=== PATIENT | female | born 1940 | race African-American/Black ===

== ENCOUNTER 2018-02-06 12:17 | Day surgery (SDC) | payer OTHER, MEDICARE ==
[2018-02-06 09:52] VITALS: BMI 29.2
[2018-02-06 15:30] VITALS: TEMP 97.7
[2018-02-06 16:12] VITALS: BP 149/63; PULSE 68
--- NOTE | 2018-02-10 17:10 | PATH ---
Surgical Pathology Report Patient Name: CAROLINE BELL [facility]. Rec. #: [id number] /Age/Gender: 1940 (Age: 77) / F Account: [id number] Location: U-ENDOSCOPY Taken: 02/06/2018 Received: 02/09/2018 Reported: 02/10/2018 Physicians: Jennifer Null M.D. Specimen(s) Received A: BX DUODENUM B: BX ANTRAL ULCERS C: BX POLYP DESCENDING COLON D: BX POLYP CECUM Clinical History Abdominal pain, rule out ulcer, history of colon polyp Postoperative diagnosis: Gastric ulcers, gastritis, hiatal hernia, diverticulosis, colon polyps Final Diagnosis A. DUODENUM, SECOND PORTION AND BULB, BIOPSY: DUODENAL MUCOSA WITH FOCAL MILD ACUTE AND CHRONIC DUODENITIS. B. STOMACH, ANTRAL ULCERS, BIOPSY: GASTRIC ANTRAL MUCOSA WITH FOCAL CHRONIC ACTIVE GASTRITIS. IMMUNOHISTOCHEMICAL STAIN FOR H. PYLORI IS NEGATIVE. C. DESCENDING COLON, POLYP, BIOPSY: HYPERPLASTIC POLYP. D. CECUM, POLYP, BIOPSY: TUBULAR ADENOMA. Electronically Signed Toma Huerta M.D. Gross Description A. Received in formalin, labeled "second portion duodenum and bulb" are 3 duff, irregular portions of soft tissue measuring 0.2 and 0.3 cm. in greatest dimension. The specimens are submitted in toto in one cassette. B. Received in formalin, labeled "antral ulcers" are 3 duff, irregular portions of soft tissue measuring 0.2 and 0.3 cm. in greatest dimension. The specimens are submitted in toto in one cassette. C. Received in formalin, labeled "polyp descending colon" is a duff, irregular portion of soft tissue measuring 0.2 cm. in greatest dimension. The specimen is submitted in toto in one cassette. D. Received in formalin, labeled "polyp cecum" are 2 duff, irregular portions of soft tissue measuring 0.1 cm. in greatest dimension. The specimens are submitted in toto in one cassette. YOSELIN/02/09/2018 carlton/02/09/2018
== END 2018-02-06 16:25 | disposition home or self-care (01) ==
LOC: JASU-ENDO 12:17
PROVIDERS: ATTEND Internal Medicine Gastroenterology
PROC: 0DBM8ZX Excision of Descending Colon, Via Natural or Artificial Opening Endoscopic, Diagnostic (ICD-10-PCS; 2018-02-06)
PROC: 0DB98ZX Excision of Duodenum, Via Natural or Artificial Opening Endoscopic, Diagnostic (ICD-10-PCS; 2018-02-06)
PROC: 0DB68ZX Excision of Stomach, Via Natural or Artificial Opening Endoscopic, Diagnostic (ICD-10-PCS; 2018-02-06)
PROC: 0DBH8ZX Excision of Cecum, Via Natural or Artificial Opening Endoscopic, Diagnostic (ICD-10-PCS; principal; 2018-02-06 13:30)
DX: Z12.11 Encounter for screening for malignant neoplasm of colon (principal); Z86.010 Personal history of colon polyps; D12.0 Benign neoplasm of cecum; D12.4 Benign neoplasm of descending colon; K57.30 Diverticulosis of large intestine without perforation or abscess without bleeding; K25.9 Gastric ulcer, unspecified as acute or chronic, without hemorrhage or perforation; K29.70 Gastritis, unspecified, without bleeding
CPT/HCPCS: 88305-TC; 88342-TC

== ENCOUNTER 2019-02-26 08:01 | Day surgery (SDC) | payer OTHER, MEDICARE ==
[2019-02-25 13:39] VITALS: BMI 30.7
[2019-02-26 10:31] VITALS: TEMP 97.2
[2019-02-26 11:00] VITALS: PULSE 60
[2019-02-26 11:44] VITALS: BP 121/64
[2019-02-26 12:07] LABS: BASO % 1.2 % (0-2.0); EOS % 2.3 % (0-4.5); HEMATOCRIT 32.6 % (32.4-45.2); HEMOGLOBIN 10.9 GM/dL (10.7-15.3); LYMPH % 27.5 % (8-40); MCH 32.8 pg (25.7-33.7); MCHC 33.3 g/dl (32.0-36.0); MEAN CELL VOLUME 98.3 fl (80-96); MEAN PLT VOLUME 8.3 fl (7.5-11.1); MONO % 4.1 % (3.8-10.2); NEUT % 64.9 % (42.8-82.8); PLATELET COUNT 231 K/MM3 (134-434); RBC 3.31 M/mm3 (3.60-5.2); RDW 12.5 % (11.6-15.6); RETICULOCYTES 1.67 % (0.5-1.5); WHITE BLOOD COUNT 4.9 K/mm3 (4.0-10.0)
[2019-02-26 12:41] LABS: ALBUMIN 3.6 g/dl (3.4-5.0); BILIRUBIN,TOTAL 0.3 mg/dL (0.2-1); BLOOD UREA NITROGEN 20.2 mg/dL (7-18); CALCIUM 9.1 mg/dL (8.5-10.1); CREATININE 1.2 mg/dL (0.55-1.3); POTASSIUM 3.8 mmol/L (3.5-5.1)
[2019-02-28 07:08] LABS: SERUM IRON SATURATION 11 % (15-55); TOTAL IRON BINDING CAPACITY 352 ug/dL (250-450)
--- NOTE | 2019-03-01 17:18 | PATH ---
Surgical Pathology Report Patient Name: CAROLINE BELL [facility]. Rec. #: [id number] /Age/Gender: 1940 (Age: 78) / F Account: [id number] Location: U-ENDOSCOPY Taken: 02/26/2019 Received: 02/26/2019 Reported: 03/01/2019 Physicians: Jennifer Null M.D. Specimen(s) Received A: 2ND PORTION DUODENUM AND BULB B: ANTRUM C: RECTAL POLYP D: TRANSVERSE COLON E: RIGHT COLON POLYPS F: CECUM Clinical History Anemia, occult GI bleed, abdominal pain, family history of gastric cancer, history of colon adenoma Postoperative diagnosis: Gastritis, small hiatal hernia, colon polyps, diverticulosis Final Diagnosis A. DUODENUM, SECOND PORTION AND DUODENAL BULB, BIOPSY: DUODENAL MUCOSA WITH REACTIVE LYMPHOID AGGREGATE. B. STOMACH, ANTRUM, BIOPSY: GASTRIC ANTRAL MUCOSA WITH MILD CHRONIC GASTRITIS. IMMUNOHISTOCHEMICAL STAIN FOR H. PYLORI IS NEGATIVE. C. RECTAL POLYPS, BIOPSY: HYPERPLASTIC POLYP(S). D. TRANSVERSE COLON POLYP, BIOPSY: TUBULAR ADENOMA. E. COLON, RIGHT, POLYPS, BIOPSY: TUBULAR ADENOMA. POLYPOID COLONIC MUCOSA WITH PROMINENT LYMPHOID AGGREGATE. F. CECAL POLYP, BIOPSY: HYPERPLASTIC POLYP. Electronically Signed Toma Huerta M.D. Gross Description A. Received in formalin, labeled "biopsy second portion duodenum and duodenal bulb" are 4 duff, irregular portions of soft tissue ranging from 0.2-0.4 cm. in greatest dimension. The specimens are submitted in toto in one cassette. B. Received in formalin, labeled "biopsy antrum " are 3 duff, irregular portions of soft tissue ranging from 0.4-0.5 cm. in greatest dimension. The specimens are submitted in toto in one cassette. C. Received in formalin, labeled "biopsy rectal polyps" are 4 duff, irregular portions of soft tissue ranging from 0.2-0.5 cm. in greatest dimension. The specimens are submitted in toto in one cassette. D. Received in formalin, labeled "biopsy transverse colon polyp" are 2 duff, irregular portions of soft tissue measuring 0.2 and 0.7 and cm. in greatest dimension. The specimens are submitted in toto in one cassette. E. Received in formalin, labeled "biopsy right colon polyps" are 5 duff, irregular portions of soft tissue ranging from 0.1-0.3 cm. in greatest dimension. The specimens are submitted in toto in one cassette. F. Received in formalin, labeled "biopsy cecal polyp" is a duff, irregular portion of soft tissue measuring 0.4 cm. in greatest dimension. The specimen is submitted in toto in one cassette. 02/26/2019 [facility]02/26/2019
== END 2019-02-26 12:15 | disposition home or self-care (01) ==
LOC: JASU-ENDO 08:01
PROVIDERS: ATTEND Internal Medicine Gastroenterology
PROC: 0DBL8ZX Excision of Transverse Colon, Via Natural or Artificial Opening Endoscopic, Diagnostic (ICD-10-PCS; 2019-02-26)
PROC: 0DBP8ZX Excision of Rectum, Via Natural or Artificial Opening Endoscopic, Diagnostic (ICD-10-PCS; 2019-02-26)
PROC: 0DBH8ZX Excision of Cecum, Via Natural or Artificial Opening Endoscopic, Diagnostic (ICD-10-PCS; 2019-02-26)
PROC: 0DB68ZX Excision of Stomach, Via Natural or Artificial Opening Endoscopic, Diagnostic (ICD-10-PCS; 2019-02-26)
PROC: 0DBK8ZX Excision of Ascending Colon, Via Natural or Artificial Opening Endoscopic, Diagnostic (ICD-10-PCS; principal; 2019-02-26 09:30)
DX: Z12.11 Encounter for screening for malignant neoplasm of colon (principal); Z86.010 Personal history of colon polyps; K62.1 Rectal polyp; D12.2 Benign neoplasm of ascending colon; D12.0 Benign neoplasm of cecum; D12.3 Benign neoplasm of transverse colon; K57.30 Diverticulosis of large intestine without perforation or abscess without bleeding; K29.70 Gastritis, unspecified, without bleeding; K44.9 Diaphragmatic hernia without obstruction or gangrene; Z80.0 Family history of malignant neoplasm of digestive organs
CPT/HCPCS: 36415; 80053; 82728; 83540; 83550; 85025; 85044; 88305-TC; 88342-TC

== ENCOUNTER 2019-05-03 15:48 | Inpatient (IN) | payer OTHER, MEDICARE ==
--- NOTE | 2019-05-03 16:06 | PDOC ---
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 The patient had a recent MRI which shows multiple disc herniations particularly bad at L5/S1. Her pcp - Dr. Christianson wants her referred to a neuro/orthopedic surgeon to correct her herniated discs. The patient has an outpatient appointment with Dr. Davila on May 06. She came into the hospital today because the pain was too much for her to handle and she was not able to walk today. She is concerned that she cannot be at home like this bc she will continue to fall down repeatedly. She is taking gabapentin and alleve for her pain at home but they are not causing her adequate pain relief. The patient states that today when she fell down in the shower she did not hit her head or anywhere else on her body. She only has severe right lower extremity pain. Patient denies loss of bowel or bladder, saddle anesthesia, fevers, chills, infections, headache, nausea, vomiting, diarrhea, or constipation. PCP: Douglas Christianson Neurologist: Dr. Davila PSH: Left Inguinal Hernia Repair Social Hx: Lives at home with sister. Independent in ADL. Denies smoking, drinking, or other substance usage. Allergies: NKA, NKDA Past History - Past Medical History Allergies/Adverse Reactions: Allergies Allergy/AdvReac Type Severity Reaction Status Date / Time No Known Allergies Allergy Verified 02/28/15 11:09 Home Medications: Ambulatory Orders Atorvastatin Ca [Lipitor] 20 mg PO HS 01/03/14 Cholecalciferol (Vitamin D3) [Vitamin D-3] 2,000 unit PO DAILY 01/03/14 Levothyroxine [Synthroid -] 75 mcg PO DAILY 01/03/14 Multivitamin [Multivitamins] 1 each PO DAILY 01/03/14 Nebivolol HCl [Bystolic] 10 mg PO BID 01/03/14 Aspirin Coated [Ecotrin -] 81 mg PO DAILY #0 01/04/14 Acetaminophen [Tylenol .Extra-Strength -] 500 mg PO DAILY PRN 02/06/18 Pantoprazole Sodium 40 mg PO DAILY #90 tablet.dr 02/06/18 Tamoxifen Citrate 20 mg PO DAILY 02/06/18 Biotin 1,000 mcg PO DAILY 02/25/19 Ferrous Sulfate, Dried [Iron] 325 mg PO DAILY 02/25/19 Magnesium 400 mg PO BID 02/25/19 Pramipexole Dihydrochloride [Mirapex -] 0.5 mg PO BID 02/25/19 Ubidecarenone [Coq10] 100 mg PO DAILY 02/25/19 Vitamin B Complex 1 each PO DAILY 02/25/19 Olmesartan/Hydrochlorothiazide [Olmesartan-Hctz 40-25 mg Tab] 1 each PO DAILY Anemia: Yes Asthma: No Cancer: Yes (LEFT BREAST CANCER) Cardiac Disorders: No CVA: No COPD: No CHF: No Dementia: No Diabetes: No GI Disorders: Yes (NSAID GASTRITIS, COLON ADENOMAS) Disorders: No HTN: Yes Hypercholesterolemia: Yes Liver Disease: Yes (COLON ADENOMA) Seizures: No Thyroid Disease: Yes (HYPOTHYROIDISM) - Surgical History Abdominal Surgery: Yes (RIGHT INGUINAL REPAIR) Appendectomy: Yes (EGD,COLONOSCOPY) Cardiac Surgery: No Cholecystectomy: No Lung Surgery: No Neurologic Surgery: No Orthopedic Surgery: No - Suicide/Smoking/Psychosocial Hx Smoking History: Former smoker Have you smoked in the past 12 months: No If you are a former smoker, when did you quit?: 1997 Hx Alcohol Use: Yes (1-2 WINE WEEKLY) Drug/Substance Use Hx: No Substance Use Type: Alcohol Hx Substance Use Treatment: No Review of Systems - Review of Systems Able to Perform ROS?: Yes Comments:: CONSTITUTIONAL: Absent: fever, chills, diaphoresis, generalized weakness, malaise, loss of appetite HEENT: Absent: rhinorrhea, nasal congestion, throat pain, throat swelling, difficulty swallowing, mouth swelling, ear pain, eye pain, visual Changes CARDIOVASCULAR: Absent: chest pain, syncope, palpitations, irregular heart rate, lightheadedness , peripheral edema RESPIRATORY: Absent: cough, shortness of breath, dyspnea with exertion, orthopnea, wheezing, stridor, hemoptysis GASTROINTESTINAL: Absent: abdominal pain, abdominal distension, nausea, vomiting, diarrhea, constipation, melena, hematochezia GENITOURINARY: Absent: dysuria, frequency, urgency, hesitancy, hematuria, flank pain, genital pain MUSCULOSKELETAL: Present: Arthralgia Absent: myalgia, joint swelling SKIN: Absent: rash, itching, pallor HEMATOLOGIC/IMMUNOLOGIC: Absent: easy bleeding, easy bruising, lymphadenopathy, frequent infections ENDOCRINE: Absent: unexplained weight gain, unexplained weight loss, heat intolerance, cold intolerance NEUROLOGIC: Present: focal weakness and paresthesias, unsteady gait Absent: headache, dizziness, seizure, mental status changes, bladder or bowel incontinence PSYCHIATRIC: Absent: anxiety, depression, suicidal or homicidal ideation, hallucinations. *Physical Exam - Physical Exam Comments: GENERAL: Well developed, well nourished. Awake and alert. Moderate distress. HEENT: Normocephalic, atraumatic. PERRLA, EOMI. No conjunctival pallor. NECK: Supple. Full ROM. No JVD. CARDIOVASCULAR: Regular rate and rhythm. No murmurs, rubs, or gallops. Distal pulses are 2+ and symmetric. PULMONARY: No evidence of respiratory distress. Lungs clear to auscultation bilaterally. No wheezing, rales or rhonchi. ABDOMINAL: Soft. Non-tender. Non-distended. No rebound or guarding. No organomegaly. Normoactive bowel sounds. MUSCULOSKELETAL Limited ROM at the right hip joint. + straight leg raise bilaterally R much worse than L. Normal range of motion at other joints. No bony deformities or tenderness. No CVA tenderness. EXTREMITIES: No cyanosis. No clubbing. No edema. No calf tenderness. SKIN: Warm and dry. Normal capillary refill. No rashes. No jaundice. NEUROLOGICAL: Alert, awake, appropriate. Cranial nerves 2-12 intact. No deficits to light touch in face, upper extremities and lower extremities. No motor deficits in the in face, upper extremities and lower extremities. Normal speech. Gait not observed secondary to patient's pain. PSYCHIATRIC: Cooperative. Good eye contact. Appropriate mood and affect. ED Treatment Course - RADIOLOGY Radiograph Interpretation: Lumbar/Sacral Spine XR: LS-spine: Pain. 3 views of the LS spine to been obtained. The 2 AP views shows 5 lumbar type vertebral bodies with scoliosis, degenerative changes, patent SI joints and intact paraspinal soft tissues. Lateral imaging reveals a normal lordosis with degenerative changes and wedging. There is vacuum phenomenon at L3-4 and L4-5. There is narrowing of the L5-S1 intervertebral disc space. Blastic or lytic changes are not seen. There is no sign of fracture or subluxation. If symptoms persist, further imaging and orthopedic consultation may be of help. Hip XR: Right hip: Pain. 2 views of the right hip reveal no sign of a gross fracture. Blastic or lytic changes are not seen. If symptoms persist, further imaging may be of help. Impression: No acute right hip pathology. 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 The patient had a recent MRI which shows multiple disc herniations particularly bad at L5/S1. Her pcp - Dr. Christianson wants her referred to a neuro/orthopedic surgeon to correct her herniated discs. The patient has an outpatient appointment with Dr. Davila on May 06. She came into the hospital today because the pain was too much for her to handle and she was not able to walk today. She is concerned that she cannot be at home like this bc she will continue to fall down repeatedly. She is taking gabapentin and alleve for her pain at home but they are not causing her adequate pain relief. The patient states that today when she fell down in the shower she did not hit her head or anywhere else on her body. She only has severe right lower extremity pain. Patient denies loss of bowel or bladder, saddle anesthesia, fevers, chills, infections, headache, nausea, vomiting, diarrhea, or constipation. Vital Signs Temp Pulse Resp BP Pulse Ox 98.1 F 71 20 178/91 H 95 05/03/19 16:39 05/03/19 16:39 05/03/19 16:39 05/03/19 16:39 05/03/19 16:39 MDM: Patient presents after recent MRI showed significant disc herniations worst at L5/S1 with bad sciatica pain radiating down her right leg and inability to ambulate. Will try to give patient analgesic medications to help her walk. If she is not able to ambulate will have to admit the patient for inability to ambulate and urgent neuro/ortho surgical referall. Plan: XR's, Analgesia, re-assess. Hip XR: Right hip: Pain. 2 views of the right hip reveal no sign of a gross fracture. Blastic or lytic changes are not seen. If symptoms persist, further imaging may be of help. Impression: No acute right hip pathology. Lumbar Spine XR: LS-spine: Pain. 3 views of the LS spine to been obtained. The 2 AP views shows 5 lumbar type vertebral bodies with scoliosis, degenerative changes, patent SI joints and intact paraspinal soft tissues. Lateral imaging reveals a normal lordosis with degenerative changes and wedging. There is vacuum phenomenon at L3-4 and L4-5. There is narrowing of the L5-S1 intervertebral disc space. Blastic or lytic changes are not seen. There is no sign of fracture or subluxation. If symptoms persist, further imaging and orthopedic consultation may be of help. Re-assessment: Patient no longer has any pain but is still unable to bear weight on her right leg since the fall in the shower earlier this morning. - Will admit patient to the hospital and consult neuro-surgery Neurosurgery consult - Dr. Downing: Spoke with Dr. Downing about the patient. He is going to look at the patient's MRI from october and call us back. Spoke with Dr. Downing who is aware of the case, will follow and see the patient. Disposition: admission to Med/Surg *DC/Admit/Observation/Transfer Diagnosis at time of Disposition: Inability to ambulate due to hip - Discharge Dispostion Condition at time of disposition: Stable Decision to Admit order: Yes - Referrals - Patient Instructions - Post Discharge Activity
[2019-05-03] MEDS ORDERED: diazePAM 5 MG TABLET PO ONE (16:32)
[2019-05-03] MEDS ORDERED: diazePAM 5 MG TABLET ONE (16:55)
--- NOTE | 2019-05-03 17:04 | PDOC ---
Attending Attestation - Resident Resident Name: Kory Davidson - ED Attending Attestation I have performed the following: I have examined & evaluated the patient, The case was reviewed & discussed with the resident, I agree w/resident's findings & plan, Exceptions are as noted - HPI HPI: 05/03/19 16:56 78 F with h/o anemia, breast CA, GERD, HTN, hypothyroid, glaucoma, herniated discs presenting to ED with lower back pain. Pt was diagnosed with several herniated discs earlier this year and reports chronic lower back pain that has progressively worsened. Today, pt states that she was in the shower when her legs buckled under her. Pt caught herself by grabbing the shower door but still went down to the floor. Denies headstrike/LOC. Pt denies any new pain since the fall. Denies any weakness/numbness in her legs. Denies incontinence of bowel or bladder. - Physicial Exam PE: 05/03/19 17:04 GENERAL: Awake, alert, and fully oriented, in no acute distress. HEAD: No signs of trauma EYES: PERRLA, EOMI, sclera anicteric, conjunctiva clear ENT: Auricles normal inspection, hearing grossly normal, nares patent, oropharynx clear without exudates. Moist mucosa NECK: Nontender, no stepoffs, Normal ROM, supple, no lymphadenopathy, JVD, or masses LUNGS: Breath sounds equal, clear to auscultation bilaterally. No wheezes, and no crackles HEART: Regular rate and rhythm, normal S1 and S2, no murmurs, rubs or gallops ABDOMEN: Soft, nontender, normoactive bowel sounds. No guarding, no rebound. No masses EXTREMITIES: Normal range of motion, no edema. No clubbing or cyanosis. No cords, erythema, or tenderness NEUROLOGICAL: Cranial nerves II through XII intact. 5/5 strength and sensation in all extremities, Normal speech, normal gait, normal cerebellar function SKIN: Warm, Dry, normal turgor, no rashes or lesions noted. BACK: + lumbar paraspinal TTP, no stepoffs, no midline TTP - Medical Decision Making 05/03/19 17:05 78 F with acute on chronic lower back pain. No new neuro deficits on exam to suggest cord compression/cauda equina. - XR L spine - Pain control 05/03/19 18:22 XRs negative for fx Pt reassessed after meds, now with significantly improved pain. However, pt still with difficulty bearing weight and ambulating without support. Will c/s nsgy 05/03/19 18:39 Dr. Downing consulted
--- NOTE | 2019-05-03 19:18 | PN ---
Teaching Attending Note Name of Resident: Lillie Morfin ATTENDING PHYSICIAN STATEMENT I saw and evaluated the patient. I reviewed the resident's note and discussed the case with the resident. I agree with the resident's findings and plan as documented. 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 The patient had a recent MRI which showed multiple disc herniations particularly bad at L5/S1. Her PCP - Dr. Christianson wants her referred to a neuro/orthopedic surgeon to correct her herniated discs. The patient has an outpatient appointment with Dr. Davila on May 06. She came into the hospital today because the pain was too much for her to handle and she was not able to walk today. She is concerned that she cannot be at home like this because she will continue to fall down repeatedly. She is taking Gabapentin and Alleve for her pain at home but not getting adequate pain relief. The patient states that she did not hit her head or anywhere else on her body. She only has severe right lower extremity pain. Patient denies loss of bowel or bladder function, saddle anesthesia, fevers, chills, recent infections, headache, nausea, vomiting, diarrhea or constipation. Lives at home with sister. Denies smoking, alcohol or illicit drug use. OBJECTIVE: Alert Vital Signs Period Temp Pulse Resp BP Sys/Soler Pulse Ox Last 24 Hr 98.1 F 71 20 178/91 95 HEENT: No Jaundice, eye redness or discharge, PERRLA, EOMI. Normocephalic, atraumatic. External ears are normal and hearing is grossly intact. No nasal discharge. Neck: Supple, nontender. No palpable adenopathy or thyromegaly. No JVD Chest: Good effort. Clear to auscultation and percussion. Heart: Regular. No S3, rub or murmur Abdomen: Not distended, soft, nontender and no HSM. No rebound or guarding. Normal bowel sounds. Ext: Peripheral pulses intact. No leg edema. Tender in right hip area. Limited ROM of right hip joint and pain with straight leg raise bilaterally (R>L). Skin: Warm and dry. No petechiae, rash or ecchymosis. Neuro: Alert. Oriented x3. CN 2-12 grossly intact. Sensation grossly intact in all four extremities and DTR are symmetric. Gait not tested for safety reasons and due to pain. Psych: Appropriate mood and affect. Good insight. Home Medications Medication Instructions Recorded Atorvastatin Ca [Lipitor] 20 mg PO HS 01/03/14 Cholecalciferol (Vitamin D3) 2,000 unit PO DAILY 01/03/14 [Vitamin D-3] Levothyroxine [Synthroid -] 75 mcg PO DAILY 01/03/14 Multivitamin [Multivitamins] 1 each PO DAILY 01/03/14 Nebivolol HCl [Bystolic] 10 mg PO BID 01/03/14 Aspirin Coated [Ecotrin -] 81 mg PO DAILY #0 01/04/14 Acetaminophen [Tylenol 500 mg PO DAILY PRN 02/06/18 .Extra-Strength -] Pantoprazole Sodium 40 mg PO DAILY #90 tablet. 02/06/18 Tamoxifen Citrate 20 mg PO DAILY 02/06/18 Biotin 1,000 mcg PO DAILY 02/25/19 Ferrous Sulfate, Dried [Iron] 325 mg PO DAILY 02/25/19 Magnesium 400 mg PO BID 02/25/19 Pramipexole Dihydrochloride 0.5 mg PO BID 02/25/19 [Mirapex -] Ubidecarenone [Coq10] 100 mg PO DAILY 02/25/19 Vitamin B Complex 1 each PO DAILY 02/25/19 Olmesartan/Hydrochlorothiazide 1 each PO DAILY 02/26/19 [Olmesartan-Hctz 40-25 mg Tab] ASSESSMENT AND PLAN: 1. Fall/Right leg pain - Pelvic, lumbar and hip xrays didnot reveal a fracture. Will get CT scan of hip. Lyman better after percocet and valium in the ER. Will consult PT and Dr. Davila. Continue pain control with percocet, lidocaine patch and provide bowel regimen. EKG and urinalysis pending. Will continue comprehensive care of all her comorbid conditions. Implement fall precautions. 2. JUSTINE - Cause unclear. Will get CPK, urinalysis, kidney sonogram and phosphate. Hydrate gently and monitor urine output. Will consult nephrology and avoid nephrotoxic agents such as NSAIDS, aminoglycosides, contrast dyes and certain Alternative medicine products. 3. Overweight Counseled on the risks associated with being overweight. Will provide patient all the necessary assistance, counseling and positive reinforcement to facilitate weight loss. Consult manager compliance. 4. Hypertension - Restart suitable outpatient antihypertensive drugs when clinically appropriate. Revise regimen to ensure [id number] excellent BP control and job counselor patient on the injurious effects of uncontrolled hypertension. Nonpharmacologic measures to control hypertension like weight loss , salt restriction and exercise discussed. Importance of adherence to treatment regimen and attainment of normotension emphasized. 5. DVT prophylaxis - Heparin 5000u sq tid. 6. Advance directives - Full code.
[2019-05-03 20:48] LABS: BASO % 1.3 % (0-2.0); EOS % 1.1 % (0-4.5); HEMATOCRIT 33.1 % (32.4-45.2); HEMOGLOBIN 10.8 GM/dL (10.7-15.3); LYMPH % 20.3 % (8-40); MCH 32.7 pg (25.7-33.7); MCHC 32.6 g/dl (32.0-36.0); MEAN CELL VOLUME 100.3 fl (80-96); MEAN PLT VOLUME 8.6 fl (7.5-11.1); MONO % 6.3 % (3.8-10.2); PLATELET COUNT 227 K/MM3 (134-434); RDW 12.8 % (11.6-15.6); WHITE BLOOD COUNT 6.2 K/mm3 (4.0-10.0)
[2019-05-03] MEDS ORDERED: LIDOCAINE 5% TOPICAL PATCH ONE (21:02)
[2019-05-03] MEDS: LIDOCAINE 5% TOPICAL PATCH TP SCH (21:05)
[2019-05-03 21:19] LABS: ALBUMIN 3.5 g/dl (3.4-5.0); BILIRUBIN,TOTAL 0.3 mg/dL (0.2-1); BLOOD UREA NITROGEN 18.5 mg/dL (7-18); CALCIUM 9.2 mg/dL (8.5-10.1); CREATININE 1.4 mg/dL (0.55-1.3); POTASSIUM 3.9 mmol/L (3.5-5.1); TOT PROT 6.9 g/dl (6.4-8.2)
[2019-05-03] MEDS: LIDOCAINE PATCH REMOVAL MC SCH (21:49)
[2019-05-03] MEDS ORDERED: DOCUSATE SODIUM 100 MG CAPSULE (FP) PO ONE (21:50)
[2019-05-03] MEDS: DOCUSATE SODIUM 100 MG CAPSULE (FP) PO SCH (21:52)
--- NOTE | 2019-05-03 23:07 | HP ---
CHIEF COMPLAINT:inability to ambulate PCP:Dr. Christianson Neuro: Dr. Davila HISTORY OF PRESENT ILLNESS: Patient is a 78 year old female with past medical history of anemia, breast CA s /p RT and lumpectomy (2013), GERD, HTN, HLD, Hypothyroidism, glaucoma, restless legs syndrome, presented to the ED due to right hip and leg pain after a fall this morning. Patient reported she was in the bathroom, when her right knee suddenly buckled and she fell on her right hip. She denies any dizziness or headache, numbness, head trauma or loss of consciousness. Since the fall, patient experienced severe right hip pain radiating down her right leg, worse with ambulation. Due to difficulty ambulating, patient came to the ED. She denies any fever, chills, nausea, vomiting, chest pain, SOB, abdominal pain, diarrhea, urinary symptoms. She denies weakness, numbness, tingling, bowel or bladder incontinence, saddle anesthesia. Of note, Lumbar spine MRI was done in October which revealed severe disc disease on L3-L4, L4-L5, L5-S1. Patient has been taking Aleve which provided minimal relief. She has seen Dr. Davila a few months prior for the restless legs syndrome and was prescribed Pramipexole. ER course was notable for: (1)Hip xray: no signs of acute fracture (2)Lumbar xray: L3-L4, L4-L5 vacuum phenomenon, L5-S1 narrowing of intervertebral disc space (3)percocet and valium x1 Recent Travel:denies PAST MEDICAL HISTORY: anemia breast CA s/p resection GERD HTN HLD Hypothyroidism glaucoma restless legs syndrome PAST SURGICAL HISTORY: Partial thyroidectomy Left inguinal hernia repair Left breast lumpectomy Left cataract surgery EGD/Colonoscopy (01/2019): gastritis, small hiatal hernia, colon polyps, diverticulosis Social History: Smoking:previous smoker, quit in 1997 Alcohol:occasional EtOH use Drugs: denies Family History: Father - stroke Mother - gastric cancer, DM Allergies No Known Allergies Allergy (Verified 02/28/15 11:09) HOME MEDICATIONS: Home Medications Medication Instructions Recorded Atorvastatin Ca [Lipitor] 20 mg PO HS 01/03/14 Cholecalciferol (Vitamin D3) 2,000 unit PO DAILY 01/03/14 [Vitamin D-3] Levothyroxine [Synthroid -] 75 mcg PO DAILY 01/03/14 Multivitamin [Multivitamins] 1 each PO DAILY 01/03/14 Nebivolol HCl [Bystolic] 10 mg PO BID 01/03/14 Aspirin Coated [Ecotrin -] 81 mg PO DAILY #0 01/04/14 Acetaminophen [Tylenol 500 mg PO DAILY PRN 02/06/18 .Extra-Strength -] Pantoprazole Sodium 40 mg PO DAILY #90 tablet. 02/06/18 Tamoxifen Citrate 20 mg PO DAILY 02/06/18 Biotin 1,000 mcg PO DAILY 02/25/19 Ferrous Sulfate, Dried [Iron] 325 mg PO DAILY 02/25/19 Magnesium 400 mg PO BID 02/25/19 Pramipexole Dihydrochloride 0.5 mg PO BID 02/25/19 [Mirapex -] Ubidecarenone [Coq10] 100 mg PO DAILY 02/25/19 Vitamin B Complex 1 each PO DAILY 02/25/19 Olmesartan/Hydrochlorothiazide 1 each PO DAILY 02/26/19 [Olmesartan-Hctz 40-25 mg Tab] Latanoprost 0.005% Eye Drops 1 drop OU HS 05/03/19 [Xalatan 0.005% Eye Drops -] Memantine HCl [Namenda -] 5 mg PO BID 05/03/19 REVIEW OF SYSTEMS CONSTITUTIONAL: Absent: fever, chills, diaphoresis, generalized weakness, malaise, loss of appetite, weight change HEENT: Absent: rhinorrhea, nasal congestion, throat pain, throat swelling, difficulty swallowing, mouth swelling, ear pain, eye pain, visual changes CARDIOVASCULAR: Absent: chest pain, syncope, palpitations, irregular heart rate, lightheadedness , peripheral edema RESPIRATORY: Absent: cough, shortness of breath, dyspnea with exertion, orthopnea, wheezing, stridor, hemoptysis GASTROINTESTINAL: Absent: abdominal pain, abdominal distension, nausea, vomiting, diarrhea, constipation, melena, hematochezia GENITOURINARY: Absent: dysuria, frequency, urgency, hesitancy, hematuria, flank pain, genital pain MUSCULOSKELETAL: back pain, RLE pain Absent: myalgia, arthralgia, joint swelling, neck pain SKIN: Absent: rash, itching, pallor HEMATOLOGIC/IMMUNOLOGIC: Absent: easy bleeding, easy bruising, lymphadenopathy, frequent infections ENDOCRINE: Absent: unexplained weight gain, unexplained weight loss, heat intolerance, cold intolerance NEUROLOGIC: Absent: headache, focal weakness or paresthesias, dizziness, unsteady gait, seizure, mental status changes, bladder or bowel incontinence PSYCHIATRIC: Absent: anxiety, depression, suicidal or homicidal ideation, hallucinations. PHYSICAL EXAMINATION Vital Signs - 24 hr 05/03/19 05/03/19 16:39 19:50 Temperature 98.1 F 98 F Pulse Rate 71 Pulse Rate [ 69 Left Radial] Respiratory 20 20 Rate Blood Pressure 178/91 H Blood Pressure 151/85 [Right Arm] O2 Sat by Pulse 95 99 Oximetry (%) GENERAL: Awake, alert, and fully oriented, in no acute distress. HEAD: Normal with no signs of trauma. EYES: PERRLA, EOMI, sclera anicteric, conjunctiva clear. EARS, NOSE, THROAT: Moist mucous membranes. NECK: Normal range of motion, supple without lymphadenopathy, JVD, or masses. LUNGS: Breath sounds equal, clear to auscultation bilaterally. HEART: Regular rate and rhythm, normal S1 and S2 without murmur, rub or gallop. ABDOMEN: Soft, nontender, not distended, normoactive bowel sounds. MUSCULOSKELETAL: Decreased ROM of RLE, limited due to pain UPPER EXTREMITIES: 2+ pulses, warm, well-perfused. No peripheral edema. LOWER EXTREMITIES: 2+ pulses, warm, well-perfused. NEUROLOGICAL: Cranial nerves II-XII intact. Normal speech. Motor strength 5/5 b /l UE and LLE, 4/5 RLE, limited by pain, sensation intact on all extremities. PSYCHIATRIC: Cooperative. Good eye contact. Appropriate mood and affect. SKIN: Warm, dry, normal turgor, no rashes or lesions noted. Laboratory Results - last 24 hr 05/03/19 05/03/19 20:35 20:35 WBC 6.2 RBC 3.30 L Hgb 10.8 Hct 33.1 MCV 100.3 H MCH 32.7 MCHC 32.6 RDW 12.8 Plt Count 227 MPV 8.6 Absolute Neuts (auto) 4.4 Neutrophils % 71.0 Lymphocytes % 20.3 D Monocytes % 6.3 Eosinophils % 1.1 Basophils % 1.3 Nucleated RBC % 0 Sodium 139 Potassium 3.9 Chloride 104 Carbon Dioxide 27 Anion Gap 8 BUN 18.5 H Creatinine 1.4 H Est GFR (CKD-EPI)AfAm 42.19 Est GFR (CKD-EPI)NonAf 36.41 Random Glucose 152 H Calcium 9.2 Total Bilirubin 0.3 AST 32 ALT 32 Alkaline Phosphatase 55 Total Protein 6.9 Albumin 3.5 ASSESSMENT/PLAN: Patient is a 78 year old female with past medical history of anemia, breast CA s /p RT and lumpectomy (2013), GERD, HTN, HLD, Hypothyroidism, glaucoma, restless legs syndrome, presented to the ED due to right hip and leg pain after a fall this morning. #RLE pain 2/2 severe lumbar disc disease -Lumbar spine xray: L3-L4, L4-L5 showing vacuum phenomenon, L5-S1 narrowing of intervertebral disc space -Hip xray - no fracture -Will order hip CT to further evaluate right hip pain -Neurosurgery (Dr. Downing) consulted. Recommendations appreciated. -continue conservative management, will likely need surgery if does not improve -pain control with percocet, lidocaine patch -physical therapy #JUSTINE -will order UA, urine lytes -renal US -will gently hydrate with IV NS -monitor renal function -Avoid nephrotoxic agents such as NSAIDs, contrast agents #Macrocytic anemia -H/H 10.8/33.1 (at baseline) -will order iron studies, B12 and folic acid, retic count -EGD/Colonoscopy done in 01/2019: gastritis, small hiatal hernia, colon polyps , diverticulosis #HTN -Continue home meds Olmesartan-HCTZ -Nebivolol 10mg bid #HLD -Continue Lipitor 20mg HS #Hypothyroidism -Continue Synthroid 75mcg daily #Restless legs syndrome -Continue Pramipexole 0.5mg BId #FEN -IV NS @75cc/hr -Electrolytes wnl, routine bmp monitoring -Chol/Fat/Sodium restricted diet #Prophylaxis -Heparin 5000u sq tid #Disposition -full code -admit to med surg Visit type - Emergency Visit Emergency Visit: Yes ED Registration Date: 05/03/19 Care time: The patient presented to the Emergency Department on the above date and was hospitalized for further evaluation of their emergent condition. - New Patient This patient is new to me today: Yes Date on this admission: 05/04/19 - Critical Care Critical Care patient: No ATTENDING PHYSICIAN STATEMENT I saw and evaluated the patient. I reviewed the resident's note and discussed the case with the resident. I agree with the resident's findings and plan as documented. SUBJECTIVE: OBJECTIVE: ASSESSMENT AND PLAN:
[2019-05-04] MEDS: LATANOPROST 0.005% OPHTH SOLN 2.5ML BOTTLE OU SCH ×2 (00:10→21:41)
[2019-05-04] MEDS: PRAMIPEXOLE DIHYDROCHLORIDE 0.125 MG TABLET PO SCH ×3 (00:11→21:41)
[2019-05-04] MEDS: SODIUM CHLORIDE 1,000 ML IV SCH ×2 (00:11→21:42)
[2019-05-04 01:38] VITALS: BMI 32.3
[2019-05-04] MEDS: ACETAMINOPHEN 325 MG TABLET (FP) PO PRN ×3 (01:54→16:11)
[2019-05-04 03:27] LABS: EPI CELLS 0.7 /HPF (0-5/HPF); HYALINE CASTS 0 /lpf (0-8); URINE APPEARANCE CLEAR; URINE BACTERIA 8.1 /hpf (NEGATIVE); URINE BILIRUBIN NEGATIVE (NEGATIVE); URINE COLOR YELLOW; URINE GLUCOSE (UA) NEGATIVE (NEGATIVE); URINE KETONE NEGATIVE (NEGATIVE); URINE LEUK ESTERASE TRACE (NEGATIVE); URINE NITRITE NEGATIVE (NEGATIVE); URINE PROTEIN NEGATIVE (NEGATIVE); URINE RBC 0 /hpf (0-4); URINE UROBILINOGEN 0.2 mg/dL (0.2-1.0); URINE WBC 1 /hpf (0-5)
[2019-05-04] MEDS: oxyCODONE HCL 5 MG TABLET PO PRN ×4 (04:07→21:41)
[2019-05-04] MEDS: HEPARIN NA (PORCINE) 5,000 UNITS/ML 1ML VIAL SQ SCH ×3 (06:22→21:40)
[2019-05-04] MEDS: LEVOTHYROXINE NA 75 MCG TABLET (FP) PO SCH (06:22)
[2019-05-04 07:49] LABS: BASO % 0.8 % (0-2.0); EOS % 3.2 % (0-4.5); HEMATOCRIT 30.3 % (32.4-45.2); HEMOGLOBIN 10.1 GM/dL (10.7-15.3); LYMPH % 24.9 % (8-40); MCH 33.3 pg (25.7-33.7); MCHC 33.4 g/dl (32.0-36.0); MEAN CELL VOLUME 99.7 fl (80-96); MEAN PLT VOLUME 8.6 fl (7.5-11.1); MONO % 10.5 % (3.8-10.2); NEUT % 60.6 % (42.8-82.8); PLATELET COUNT 213 K/MM3 (134-434); RBC 3.04 M/mm3 (3.60-5.2); RDW 12.6 % (11.6-15.6); WHITE BLOOD COUNT 5.5 K/mm3 (4.0-10.0)
[2019-05-04 08:26] LABS: ALBUMIN 3.2 g/dl (3.4-5.0); BLOOD UREA NITROGEN 17.3 mg/dL (7-18); CALCIUM 8.7 mg/dL (8.5-10.1); CREATININE 1.1 mg/dL (0.55-1.3); PHOSPHOROUS 3.3 mg/dL (2.5-4.9); POTASSIUM 3.7 mmol/L (3.5-5.1)
[2019-05-04 08:48] LABS: BILIRUBIN,TOTAL 0.3 mg/dL (0.2-1); TOT PROT 6.4 g/dl (6.4-8.2)
[2019-05-04] MEDS: HYDROCHLOROTHIAZIDE 25 MG TABLET (FP) PO SCH (09:30)
[2019-05-04] MEDS: VALSARTAN 160 MG TABLET (UD) PO SCH (09:30)
[2019-05-04] MEDS ORDERED: PNEUMOC 13-VAL CONJ-DIP CRM/PF 0.5 ML DISP.SYRIN IM ONE (09:30)
[2019-05-04] MEDS: NEBIVOLOL 10 MG TABLET (FP) PO SCH ×2 (09:30→21:40)
[2019-05-04] MEDS: MEMANTINE HCL 5 MG TABLET (UD) PO SCH ×2 (09:34→22:17)
[2019-05-04] MEDS: LIDOCAINE 5% TOPICAL PATCH TP SCH (09:36)
[2019-05-04] MEDS ORDERED: NEBIVOLOL HCL 10 MG PO SCH (10:00)
[2019-05-04] MEDS ORDERED: ENOXAPARIN NA (PORCINE) 40 MG/0.4 ML DISP.SYRIN SQ SCH (10:00)
--- NOTE | 2019-05-04 12:05 | CONSULT ---
Consult - text type - Consultation Consultation Note: NEUROLOGY CONSULT GREATLY APPRECIATED: This 78 yo woman is well known to me with migraine headaches. Restless Limbs ( RLS, mild OMS and Chronic LS spinal stenosis. Last seen in consult 11/23/18. Office f/u for 05/06. Lives with her sister and son. Ambulates independently. PMHX: HTN, hypothyroid, breast CA, glaucoma. On: bystolic 10 mg BID; valsartan, synthroid, tamoxifen, donepezil 10 mg po qam , memantine 5 mg BID, pramipexole 0.375/0.75 mg HS. Admitted after 1 week of "shooting" pains down right lateral leg and more recent "knee buckling" with 2 falls to the right side upon standing. No prodromata or LOC. She admits she was taking pramipexole 0.375 mg BID due to daytime fatigue which resolved her left leg pains but sleep to a lessor extent. EKG- NSR with PAC's MRI of LS spine 11/09/18 (reviewed on [facility]): Nl alignment, moderate disc desiccation L3/L4, L4/L5 bulges. Mild canal stenosis. 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 TSH= 1.45; B12= 630; Iron= 45; TIBC= 321; Iron sat= 14%; Ferritin= 86; UA WBC=1 Xrays of LS spine, Hips/Pelvis reviewed. TIMO: Mod obese. BP 180/90 ->148/88 supine. 157/90 sitting. Cor reg. No bruit. Neck supple. Neg SLR. Neg Hudson's. No evidence of trauma. NEURO: Mentation/Speech: OX SJ May 04 or 2018. TRUMP. THUMP. 11/01 recall @ 3 min. + Glabella. CNII-CNXII: EOM's full with full latif. No facial. Gag ok. Motor: No drift or tremor. No cogwheeling. Isolated weakness 4-/5 of R hip flexor/knee extensor. Absent right KJ !- otherwise reflexes. Plantars silent. Coordination: No FTN dystaxia. Sensation: Reduced vibration toes. Gait: Unable to raise from seated position. Antalgic right leg. Impression: ACUTE L4 (+/-L3) radiculopathy on the right Mild B/L cerebral dysfunction (OMS, chronic) +/- hypertensive encephalopathy Migraine Headaches- quiescent on bystolic 10 mg BID Exacerbation of Restless Limbs Syndrome (with Iron deficiency anemia) Suggest: MRI of LS spine C- (Compare to 11/17) Orthostatic BP's Check ESR, CRP Maintain systolic BP < 130s Add FeSO4 325 mg po daily supplementation Increase pramipexole to 0.375 mg qam/0.75 mg HS Resume donepezil 5 mg po qam and continue memantine 5 mg BID Thank you very much, Lobo Davila MD
--- NOTE | 2019-05-04 12:43 | EKG ---
Test Reason : Blood Pressure : / mmHG Vent. Rate : 079 BPM Atrial Rate : 079 BPM P-R Int : 172 ms QRS Dur : 114 ms QT Int : 414 ms P-R-T Axes : 062 019 046 degrees QTc Int : 474 ms POOR DATA QUALITY, INTERPRETATION MAY BE ADVERSELY AFFECTED SINUS RHYTHM WITH PREMATURE ATRIAL COMPLEXES WITH ABERRANT CONDUCTION MINIMAL VOLTAGE CRITERIA FOR LVH, MAY BE NORMAL VARIANT NONSPECIFIC T WAVE ABNORMALITY ABNORMAL ECG Confirmed by Mark Mejias MD ([id number]) on 05/04/2019 12:43:06 PM Referred By: Confirmed By:Mark Mejias MD
[2019-05-04] MEDS ORDERED: PT OWN MED DRAWER 7, Y5N ONE (12:44)
[2019-05-04 12:45] LABS: RETICULOCYTES 2.05 % (0.5-1.5)
--- NOTE | 2019-05-04 15:32 | PN ---
Teaching Attending Note Name of Resident: Nelly Spears ATTENDING PHYSICIAN STATEMENT I saw and evaluated the patient. I reviewed the resident's note and discussed the case with the resident. I agree with the resident's findings and plan as documented. SUBJECTIVE:c/o RLE pain, limited movement due to the pain with very little relief from pain meds. states her back pain is at baseline. denies Cp, SOB, fever, chills, numbness/tingling in LE, bowel incontinence, OBJECTIVE: Last Vital Signs Temp Pulse Resp BP Pulse Ox 98.3 F 67 18 165/96 99 05/04/19 14:30 05/04/19 14:30 05/04/19 09:00 05/04/19 14:30 05/04/19 09:00 General NAD CV S1 S2 RRR no murmur/rub/gallop Lungs CTA B/L no wheezing/rales/rhonchi abdomen soft NT/ND obese Extremities R thigh pain with reduced strength 2/5 RLE. sensation grossly intact. +muscle spasm to R lumbar region. no efrain point tenderness along the spine. pelvis is stable ASSESSMENT AND PLAN: 78yo F wtih PMH anemia, HTN, hypothyroid, breast cancer presented to the ER for RLE pain after falling in the shower and seen on imaging to have diffuse degenerative disease 1. RLE pain- concern for pelvic fracture not seen on xr. CT ordered. will start lidoderm patch and flexeril prn. cont oxy at current dosing and encouraged her to request it if needed. neurosurg and neuro consulted. pt very adamant will not have surgery but open to hear recommendations. 2. JUSTINE- due to dehydration. now resolved. 3. HTN- above goal but can be pain induced. will optimize pain control. titrate meds if needed to optimize control 4. anemia 5. Hypothyroid- LT4 6. breast cancer- outpatient management 7. DVT ppx- hep sq
--- NOTE | 2019-05-04 17:12 | PN ---
Physical Exam: SUBJECTIVE: Patient seen and examined. She reports right leg pain and weakness. She reports chronic back pain. She denies numbness, tingling, or bowel or bladder incontinence. OBJECTIVE: Vital Signs Period Temp Pulse Resp BP Sys/Soler Pulse Ox Last 24 Hr 97.5 F-98.4 F 67-77 18-20 148-165/85-96 99-99 GENERAL: The patient is awake, alert, and fully oriented, in no acute distress. HEAD: Normal with no signs of trauma. EYES: PERRL, extraocular movements intact, sclera anicteric, conjunctiva clear. No ptosis. ENT: Ears normal, nares patent, moist mucous membranes. NECK: Trachea midline, full range of motion, supple. LUNGS: Breath sounds equal, clear to auscultation bilaterally, no wheezes, no crackles, no accessory muscle use. HEART: Regular rate and rhythm, S1, S2 without murmur, rub or gallop. ABDOMEN: Soft, nontender, nondistended, normoactive bowel sounds. EXTREMITIES: 2+ pulses, warm, well-perfused, trace LE edema, strength 2/5 right leg flexion at hip, 5/5 extension, 5/5 dorsiflexion, plantar flexion; left leg 5 /5 in all, sensation intact NEUROLOGICAL: Cranial nerves II through XII grossly intact. Normal speech, gait not observed. PSYCH: Normal mood, normal affect. SKIN: Warm, dry, normal turgor, no rashes or lesions noted Laboratory Results - last 24 hr 05/03/19 05/03/19 05/04/19 20:35 20:35 02:00 WBC 6.2 RBC 3.30 L Hgb 10.8 Hct 33.1 MCV 100.3 H MCH 32.7 MCHC 32.6 RDW 12.8 Plt Count 227 MPV 8.6 Absolute Neuts (auto) 4.4 Neutrophils % 71.0 Lymphocytes % 20.3 D Monocytes % 6.3 Eosinophils % 1.1 Basophils % 1.3 Nucleated RBC % 0 Retic Count Sodium 139 Potassium 3.9 Chloride 104 Carbon Dioxide 27 Anion Gap 8 BUN 18.5 H Creatinine 1.4 H Est GFR (CKD-EPI)AfAm 42.19 Est GFR (CKD-EPI)NonAf 36.41 Random Glucose 152 H Calcium 9.2 Phosphorus Magnesium Iron TIBC Iron Saturation Unsaturated IBC Ferritin Total Bilirubin 0.3 AST 32 ALT 32 Alkaline Phosphatase 55 Total Protein 6.9 Albumin 3.5 Vitamin B12 Serum Folate TSH Urine Color Yellow Urine Appearance Clear Urine pH 5.0 D Ur Specific [place] 1.013 Urine Protein Negative Urine Glucose (UA) Negative Urine Ketones Negative Urine Blood Negative Urine Nitrite Negative Urine Bilirubin Negative Urine Urobilinogen 0.2 Ur Leukocyte Esterase Trace Urine WBC (Auto) 1 Urine RBC (Auto) 0 Urine Casts (Auto) 0 U Epithel Cells (Auto) 0.7 Urine Bacteria (Auto) 8.1 Ur Random Creatinine Ur Random Sodium Ur Random Urea Nitrogn 05/04/19 05/04/19 05/04/19 02:00 02:00 06:35 WBC 5.5 RBC 3.04 L Hgb 10.1 L Hct 30.3 L MCV 99.7 H MCH 33.3 MCHC 33.4 RDW 12.6 Plt Count 213 MPV 8.6 Absolute Neuts (auto) 3.3 Neutrophils % 60.6 Lymphocytes % 24.9 D Monocytes % 10.5 H Eosinophils % 3.2 D Basophils % 0.8 Nucleated RBC % 0 Retic Count 2.05 H D Sodium Potassium Chloride Carbon Dioxide Anion Gap BUN Creatinine Est GFR (CKD-EPI)AfAm Est GFR (CKD-EPI)NonAf Random Glucose Calcium Phosphorus Magnesium Iron TIBC Iron Saturation Unsaturated IBC Ferritin Total Bilirubin AST ALT Alkaline Phosphatase Total Protein Albumin Vitamin B12 Serum Folate TSH Urine Color Urine Appearance Urine pH Ur Specific [place] Urine Protein Urine Glucose (UA) Urine Ketones Urine Blood Urine Nitrite Urine Bilirubin Urine Urobilinogen Ur Leukocyte Esterase Urine WBC (Auto) Urine RBC (Auto) Urine Casts (Auto) U Epithel Cells (Auto) Urine Bacteria (Auto) Ur Random Creatinine 71.0 Ur Random Sodium 98 Ur Random Urea Nitrogn 461 05/04/19 05/04/19 05/04/19 06:35 06:35 06:35 WBC RBC Hgb Hct MCV MCH MCHC RDW Plt Count MPV Absolute Neuts (auto) Neutrophils % Lymphocytes % Monocytes % Eosinophils % Basophils % Nucleated RBC % Retic Count Sodium 140 Potassium 3.7 Chloride 104 Carbon Dioxide 28 Anion Gap 8 BUN 17.3 Creatinine 1.1 Est GFR (CKD-EPI)AfAm 56.48 Est GFR (CKD-EPI)NonAf 48.73 Random Glucose 91 Calcium 8.7 Phosphorus 3.3 Magnesium 2.0 Iron 45 L TIBC 321 Iron Saturation 14 L Unsaturated IBC 276 H Ferritin 86.0 Total Bilirubin 0.3 AST 26 ALT 28 Alkaline Phosphatase 52 Total Protein 6.4 Albumin 3.2 L Vitamin B12 630 Serum Folate 32 H TSH 1.45 Urine Color Urine Appearance Urine pH Ur Specific [place] Urine Protein Urine Glucose (UA) Urine Ketones Urine Blood Urine Nitrite Urine Bilirubin Urine Urobilinogen Ur Leukocyte Esterase Urine WBC (Auto) Urine RBC (Auto) Urine Casts (Auto) U Epithel Cells (Auto) Urine Bacteria (Auto) Ur Random Creatinine Ur Random Sodium Ur Random Urea Nitrogn Active Medications Generic Name Dose Route Start Last Admin Trade Name Freq PRN Reason Stop Dose Admin Acetaminophen 650 mg 05/03/19 20:32 05/04/19 16:11 Tylenol - PO 650 mg Q6H PRN Administration PAIN OR FEVER Atorvastatin Calcium 20 mg 05/04/19 22:00 Lipitor - PO HS DOUGLAS Cyclobenzaprine HCl 5 mg 05/04/19 15:07 Cyclobenzaprine Hcl PO TID PRN MUSCLE SPASMS Docusate Sodium 300 mg 05/03/19 22:00 05/03/19 21:52 Colace - PO 300 mg HS DOUGLAS Administration Donepezil HCl 5 mg 05/05/19 22:00 Aricept - PO HS DOUGLAS Heparin Sodium (Porcine) 5,000 unit 05/04/19 06:00 05/04/19 14:36 Heparin - SQ 5,000 unit TID DOUGLAS Administration Hydrochlorothiazide 25 mg 05/04/19 10:00 05/04/19 09:30 Hctz - PO 25 mg DAILY DOUGLAS Administration Sodium Chloride 1,000 mls @ 75 mls/hr 05/03/19 22:15 05/04/19 00:11 Normal Saline - IV 75 mls/hr ASDIR DOUGLAS Administration Latanoprost 1 drop 05/03/19 22:00 05/04/19 00:10 Xalatan 0.005% Eye Drops - OU 1 drop HS DOUGLAS Administration Levothyroxine Sodium 75 mcg 05/04/19 07:00 05/04/19 06:22 Synthroid - PO 75 mcg ACBK DOUGLAS Administration Lidocaine 1 patch 05/03/19 20:45 05/04/19 09:36 Lidoderm Patch - TP 1 patch DAILY DOUGLAS Administration Memantine 5 mg 05/04/19 10:00 05/04/19 09:34 Namenda - PO 5 mg BID DOUGLAS Administration Miscellaneous 1 each 05/03/19 22:00 05/03/19 21:49 Lidoderm Patch Removal MC Not Given DAILY@2200 DOUGLAS Nebivolol 10 mg 05/04/19 10:00 05/04/19 09:30 Bystolic - PO 10 mg BID DOUGLAS Administration Oxycodone HCl 5 mg 05/03/19 20:33 05/04/19 16:11 Roxicodone - PO 5 mg Q6H PRN Administration PAIN LEVEL 7 - 10 Pramipexole Dihydrochloride 0.5 mg 05/03/19 22:00 05/04/19 09:35 Mirapex - PO 0.5 mg BID DOUGLAS Administration Valsartan 320 mg 05/04/19 10:00 05/04/19 09:30 Diovan - PO 320 mg DAILY DOUGLAS Administration ASSESSMENT/PLAN: Ms. Fernandez is a 78yo female with past medical history of anemia, breast CA s/p RT and lumpectomy (2013), GERD, HTN, HLD, hypothyroidism, glaucoma, restless legs syndrome, presented to the ED due to right hip and leg pain s/p mechanical fall. #RLE pain 2/2 severe lumbar disc disease -Lumbar spine xray: L3-L4, L4-L5 showing vacuum phenomenon, L5-S1 narrowing of intervertebral disc space -Hip xray - no fracture -pelvic CT results pending -Neurosurgery (Dr. Downing) consulted. Recommendations appreciated. -pain control with oxycodone and lidocaine patch -PT #JUSTINE, resolved Cr 1.1. Baseline avg 1.0, 1.4 yesterday, most likely due to dehydration -will gently hydrate with IV NS -Avoid nephrotoxic agents such as NSAIDs, contrast agents #Macrocytic anemia -H/H 10.8/33.1 (at baseline) -order iron studies, B12 and folic acid, retic count -EGD/Colonoscopy done in 01/2019: gastritis, small hiatal hernia, colon polyps , diverticulosis #HTN -Continue home meds Olmesartan-HCTZ -Nebivolol 10mg bid #HLD -Continue Lipitor 20mg HS #Hypothyroidism -Continue Synthroid 75mcg daily #Restless legs syndrome -Continue Pramipexole 0.5mg BID #FEN -IV NS @75cc/hr -Electrolytes wnl, routine bmp monitoring -Chol/Fat/Sodium restricted diet #Prophylaxis -Heparin 5000u sq tid Visit type - Emergency Visit Emergency Visit: Yes ED Registration Date: 05/03/19 Care time: The patient presented to the Emergency Department on the above date and was hospitalized for further evaluation of their emergent condition. - New Patient This patient is new to me today: Yes Date on this admission: 05/04/19 - Critical Care Critical Care patient: No - Discharge Referral Referred to [facility] No ATTENDING PHYSICIAN STATEMENT I saw and evaluated the patient. I reviewed the resident's note and discussed the case with the resident. I agree with the resident's findings and plan as documented. SUBJECTIVE: OBJECTIVE: ASSESSMENT AND PLAN:
[2019-05-04] MEDS: DOCUSATE SODIUM 100 MG CAPSULE (FP) PO SCH (21:40)
[2019-05-04] MEDS: LIDOCAINE PATCH REMOVAL MC SCH (21:41)
[2019-05-04] MEDS: ATORVASTATIN CA 20 MG TABLET (FP) PO SCH (21:41)
[2019-05-05] MEDS: ACETAMINOPHEN 325 MG TABLET (FP) PO PRN ×2 (03:00→16:57)
[2019-05-05] MEDS: oxyCODONE HCL 5 MG TABLET PO PRN ×3 (04:25→16:57)
[2019-05-05] MEDS: LEVOTHYROXINE NA 75 MCG TABLET (FP) PO SCH (06:14)
[2019-05-05] MEDS: HEPARIN NA (PORCINE) 5,000 UNITS/ML 1ML VIAL SQ SCH ×3 (06:14→21:19)
[2019-05-05 08:11] LABS: HEMATOCRIT 32.8 % (32.4-45.2); MCH 33.2 pg (25.7-33.7); MCHC 33.5 g/dl (32.0-36.0); MEAN CELL VOLUME 99.2 fl (80-96); PLATELET COUNT 238 K/MM3 (134-434); RDW 12.4 % (11.6-15.6); WHITE BLOOD COUNT 5.2 K/mm3 (4.0-10.0)
[2019-05-05 08:24] LABS: BLOOD UREA NITROGEN 13.9 mg/dL (7-18); CALCIUM 8.9 mg/dL (8.5-10.1); CREATININE 1.1 mg/dL (0.55-1.3); POTASSIUM 3.9 mmol/L (3.5-5.1)
[2019-05-05] MEDS ORDERED: PT OWN MED DRAWER 7, Y5N ONE ×3 (08:53→17:39)
[2019-05-05] MEDS: VALSARTAN 160 MG TABLET (UD) PO SCH (09:10)
[2019-05-05] MEDS: HYDROCHLOROTHIAZIDE 25 MG TABLET (FP) PO SCH (09:10)
[2019-05-05] MEDS: PRAMIPEXOLE DIHYDROCHLORIDE 0.125 MG TABLET PO SCH ×2 (09:11→21:16)
[2019-05-05] MEDS: NEBIVOLOL 10 MG TABLET (FP) PO SCH ×2 (09:11→21:16)
[2019-05-05] MEDS: LIDOCAINE 5% TOPICAL PATCH TP SCH (09:11)
[2019-05-05] MEDS: MEMANTINE HCL 5 MG TABLET (UD) PO SCH ×2 (09:12→21:18)
[2019-05-05] MEDS ORDERED: PATIENT'S OWN MEDICATION (NON-FORMULARY) (Pramipexole Di-Hcl [Pramipexole Er] 0.75 MG) PO SCH (10:00)
[2019-05-05] MEDS: PANTOPRAZOLE 40 MG TABLET (FP) PO SCH (10:05)
[2019-05-05] MEDS: DONEPEZIL HCL 5 MG TABLET (FP) PO SCH (10:05)
[2019-05-05] MEDS: CYCLOBENZAPRINE HCL 5 MG TABLET PO PRN ×2 (10:05→21:16)
[2019-05-05 10:34] LABS: ERYTHROCYTE SEDIMENTATION RATE 16 mm/hr (0-30)
--- NOTE | 2019-05-05 11:11 | CONSULT ---
Consult - text type - Consultation Consultation Note: NEUROSURGERY CONSULTATION Brenda Fernandez is a 78 year old female with multiple medical problems who was admitted with progressive gait difficulties and 2 episodes where her Right leg gave out from beneath her resulting in falls. Imaging reveals multilevel Lumbar spondylosis from October 2018. Patient appears to have primarily proximal Right Lower Extremity weakness without sensory abnormalities. No bowel and bladder difficulties described. I agree with Dr. Davila that the differential diagnosis is wide, however, more contemporaneous imaging of the Lumbar spine with repeat MRI might be helpful. Physical Therapy and Pain Management would be appropriate conservative efforts at this time. If her symptoms persist or progres or can be clearly linked to pathology on new imaging, the potential role of surgical intervention may be considered.
[2019-05-05] MEDS ORDERED: IRON SUCROSE INJECTION 200 MG in SODIUM CHLORIDE 90 ML IVPB ONE (12:00)
[2019-05-05] MEDS: TAMOXIFEN CITRATE 10 MG TABLET PO SCH (12:16)
--- NOTE | 2019-05-05 14:43 | PN ---
Teaching Attending Note Name of Resident: Nelly Spears ATTENDING PHYSICIAN STATEMENT I saw and evaluated the patient. I reviewed the resident's note and discussed the case with the resident. I agree with the resident's findings and plan as documented. SUBJECTIVE:continues to have severe pain worse with any movement. denies Cp, SOB , fevr, chills, N/V/C/D OBJECTIVE: Last Vital Signs Temp Pulse Resp BP Pulse Ox 98.8 F 74 18 153/84 99 05/05/19 10:20 05/05/19 10:20 05/05/19 10:20 05/05/19 10:20 05/05/19 09:00 General NAD Extremities R thigh pain with reduced strength 2/5 RLE. sensation grossly intact. ASSESSMENT AND PLAN: 78yo F wtih PMH anemia, HTN, hypothyroid, breast cancer presented to the ER for RLE pain after falling in the shower and seen on imaging to have diffuse degenerative disease 1. RLE pain-L3-L4 disc herniation. MRI ordered to better evaluate. will increase percocet to 10mg to improve control. has not asked for flexeril. states she took the patch off yesterday because she felt it was not working but encouraged her to leave it on for full duration. will likely benefit from PT. neurosurg and neuro on board. 2. JUSTINE- due to dehydration. now resolved. 3. HTN- above goal but can be pain induced. will optimize pain control. titrate meds if needed to optimize control 4. anemia 5. Hypothyroid- LT4 6. breast cancer- outpatient management 7. DVT ppx- hep sq 8. PT eval
--- NOTE | 2019-05-05 16:53 | PN ---
Physical Exam: SUBJECTIVE: Patient seen and examined. She reports continued right leg pain and weakness. She denies numbness or tingling. OBJECTIVE: Vital Signs Period Temp Pulse Resp BP Sys/Soler Pulse Ox Last 24 Hr 97.3 F-98.8 F 72-84 18-20 152-160/70-93 99-99 GENERAL: The patient is awake, alert, and fully oriented, in no acute distress. HEAD: Normal with no signs of trauma. EYES: PERRL, extraocular movements intact, sclera anicteric, conjunctiva clear. No ptosis. ENT: Ears normal, nares patent, moist mucous membranes. NECK: Trachea midline, full range of motion, supple. LUNGS: Breath sounds equal, clear to auscultation bilaterally, no wheezes, no crackles, no accessory muscle use. HEART: Regular rate and rhythm, S1, S2 without murmur, rub or gallop. ABDOMEN: Soft, nontender, nondistended, normoactive bowel sounds. EXTREMITIES: 2+ pulses, warm, well-perfused, trace LE edema, strength 2/5 right leg flexion at hip, 5/5 extension, 5/5 dorsiflexion, plantar flexion; left leg 5 /5 in all, sensation intact NEUROLOGICAL: Cranial nerves II through XII grossly intact. Normal speech, gait not observed. PSYCH: Normal mood, normal affect. SKIN: Warm, dry, normal turgor, no rashes or lesions noted Laboratory Results - last 24 hr 05/05/19 05/05/19 05/05/19 06:20 06:20 06:20 WBC 5.2 RBC 3.30 L Hgb 11.0 Hct 32.8 MCV 99.2 H MCH 33.2 MCHC 33.5 RDW 12.4 Plt Count 238 MPV 9.0 ESR 16 Sodium 141 Potassium 3.9 Chloride 104 Carbon Dioxide 28 Anion Gap 9 BUN 13.9 Creatinine 1.1 Est GFR (CKD-EPI)AfAm 56.48 Est GFR (CKD-EPI)NonAf 48.73 Random Glucose 84 Calcium 8.9 C-Reactive Protein < 0.3 Active Medications Generic Name Dose Route Start Last Admin Trade Name Freq PRN Reason Stop Dose Admin Acetaminophen 650 mg 05/03/19 20:32 05/05/19 03:00 Tylenol - PO 650 mg Q6H PRN Administration PAIN OR FEVER Atorvastatin Calcium 20 mg 05/04/19 22:00 05/04/19 21:41 Lipitor - PO 20 mg HS DOUGLAS Administration Cyclobenzaprine HCl 5 mg 05/04/19 15:07 05/05/19 10:05 Cyclobenzaprine Hcl PO 5 mg TID PRN Administration MUSCLE SPASMS Docusate Sodium 300 mg 05/03/19 22:00 05/04/19 21:40 Colace - PO 300 mg HS DOUGLAS Administration Donepezil HCl 5 mg 05/05/19 10:00 05/05/19 10:05 Aricept - PO 5 mg DAILY DOUGLAS Administration Heparin Sodium (Porcine) 5,000 unit 05/04/19 06:00 05/05/19 14:23 Heparin - SQ 5,000 unit TID DOUGLAS Administration Hydrochlorothiazide 25 mg 05/04/19 10:00 05/05/19 09:10 Hctz - PO 25 mg DAILY DOUGLAS Administration Latanoprost 1 drop 05/03/19 22:00 05/04/19 21:41 Xalatan 0.005% Eye Drops - OU 1 drop HS DOUGLAS Administration Levothyroxine Sodium 75 mcg 05/04/19 07:00 05/05/19 06:14 Synthroid - PO 75 mcg ACBK DOUGLAS Administration Lidocaine 1 patch 05/03/19 20:45 05/05/19 09:11 Lidoderm Patch - TP 1 patch DAILY DOUGLAS Administration Memantine 5 mg 05/04/19 10:00 05/05/19 09:12 Namenda - PO 5 mg BID DOUGLAS Administration Miscellaneous 1 each 05/03/19 22:00 05/04/19 21:41 Lidoderm Patch Removal MC Not Given DAILY@2200 DOUGLAS Nebivolol 10 mg 05/04/19 10:00 05/05/19 09:11 Bystolic - PO 10 mg BID DOUGLAS Administration Oxycodone HCl 5 mg 05/03/19 20:33 05/05/19 10:05 Roxicodone - PO 5 mg Q6H PRN Administration PAIN LEVEL 7 - 10 Pantoprazole Sodium 40 mg 05/05/19 10:00 05/05/19 10:05 Protonix - PO 40 mg DAILY DOUGLAS Administration Pramipexole Dihydrochloride 0.5 mg 05/03/19 22:00 05/05/19 09:11 Mirapex - PO 0.5 mg BID DOUGLAS Administration Tamoxifen Citrate 20 mg 05/05/19 10:00 05/05/19 12:16 Tamoxifen Citrate PO 20 mg DAILY DOUGLAS Administration Valsartan 320 mg 05/04/19 10:00 05/05/19 09:10 Diovan - PO 320 mg DAILY DOUGLAS Administration ASSESSMENT/PLAN: Ms. Fernandez is a 78yo female with past medical history of anemia, breast CA s/p RT and lumpectomy (2013), GERD, HTN, HLD, hypothyroidism, glaucoma, restless legs syndrome, presented to the ED due to right hip and leg pain s/p mechanical fall. #RLE pain 2/2 mechanical fall and lumbar radiculopathy -Pelvic CT negative for fx, L3-L4 posterolateral herniation, L5-S1 disc space narrowing with endplate sclerosis, foraminal stenosis. recommends MRI -Pt was able to walk 15ft today with PT -MRI lumbar spine ordered -Lumbar spine xray: L3-L4, L4-L5 showing vacuum phenomenon, L5-S1 narrowing of intervertebral disc space -Hip xray - no fracture -Neurosurgery (Dr. Downing) consulted. No surgical intervention recommended at this time but will have pt follow up. -pain control with oxycodone and lidocaine patch #JUSTINE, resolved Cr 1.1. Baseline avg 1.0, 1.4 yesterday, most likely due to dehydration -will gently hydrate with IV NS -Avoid nephrotoxic agents such as NSAIDs, contrast agents #iron deficiency anemia Pt currently on 350mg ferrous sulfate daily as outpt. Fe 45 (low). TIBC 321. iron saturation 14 (low). unsaturated IBC 276 (high). -IV Venofer -increase outpt dose to BID #Macrocytic anemia Hb 11 (at baseline). B12 630. folate 32 (high). -EGD/Colonoscopy done in 01/2019: gastritis, small hiatal hernia, colon polyps, diverticulosis #HTN -Continue home meds Olmesartan-HCTZ -Nebivolol 10mg bid #HLD -Continue Lipitor 20mg HS #Hypothyroidism -Continue Synthroid 75mcg daily #Restless legs syndrome -Continue Pramipexole 0.5mg BID #FEN -fluids d/c'ed today -monitor lytes -Chol/Fat/Sodium restricted diet #Prophylaxis -Heparin 5000u sq tid Visit type - Emergency Visit Emergency Visit: Yes ED Registration Date: 05/03/19 Care time: The patient presented to the Emergency Department on the above date and was hospitalized for further evaluation of their emergent condition. - New Patient This patient is new to me today: No - Critical Care Critical Care patient: No - Discharge Referral Referred to [facility] Med P.C.: No ATTENDING PHYSICIAN STATEMENT I saw and evaluated the patient. I reviewed the resident's note and discussed the case with the resident. I agree with the resident's findings and plan as documented. SUBJECTIVE: OBJECTIVE: ASSESSMENT AND PLAN:
[2019-05-05] MEDS: ATORVASTATIN CA 20 MG TABLET (FP) PO SCH (21:16)
[2019-05-05] MEDS: DOCUSATE SODIUM 100 MG CAPSULE (FP) PO SCH (21:16)
[2019-05-05] MEDS: LATANOPROST 0.005% OPHTH SOLN 2.5ML BOTTLE OU SCH (21:19)
[2019-05-05] MEDS: LIDOCAINE PATCH REMOVAL MC SCH (21:36)
[2019-05-05] MEDS ORDERED: DONEPEZIL HCL 5 MG TABLET (FP) PO SCH (22:00)
[2019-05-06] MEDS: oxyCODONE HCL 5 MG TABLET PO PRN ×3 (00:12→14:24)
[2019-05-06] MEDS: LEVOTHYROXINE NA 75 MCG TABLET (FP) PO SCH (06:03)
[2019-05-06] MEDS: HEPARIN NA (PORCINE) 5,000 UNITS/ML 1ML VIAL SQ SCH ×2 (06:04→14:16)
[2019-05-06 08:43] LABS: BASO % 1.1 % (0-2.0); EOS % 3.4 % (0-4.5); HEMATOCRIT 34.4 % (32.4-45.2); HEMOGLOBIN 11.5 GM/dL (10.7-15.3); LYMPH % 34.4 % (8-40); MCH 33.3 pg (25.7-33.7); MCHC 33.5 g/dl (32.0-36.0); MEAN CELL VOLUME 99.3 fl (80-96); MEAN PLT VOLUME 8.6 fl (7.5-11.1); MONO % 9.6 % (3.8-10.2); NEUT % 51.5 % (42.8-82.8); PLATELET COUNT 247 K/MM3 (134-434); RBC 3.47 M/mm3 (3.60-5.2); RDW 12.7 % (11.6-15.6); WHITE BLOOD COUNT 6.5 K/mm3 (4.0-10.0)
[2019-05-06 09:15] LABS: ALBUMIN 3.5 g/dl (3.4-5.0); BILIRUBIN,TOTAL 0.4 mg/dL (0.2-1); BLOOD UREA NITROGEN 15.6 mg/dL (7-18); CALCIUM 9.4 mg/dL (8.5-10.1); CREATININE 1.1 mg/dL (0.55-1.3); POTASSIUM 3.9 mmol/L (3.5-5.1); TOT PROT 7.2 g/dl (6.4-8.2)
[2019-05-06] MEDS: PRAMIPEXOLE DIHYDROCHLORIDE 0.125 MG TABLET PO SCH (09:23)
[2019-05-06] MEDS: DONEPEZIL HCL 5 MG TABLET (FP) PO SCH (09:24)
[2019-05-06] MEDS: HYDROCHLOROTHIAZIDE 25 MG TABLET (FP) PO SCH (09:24)
[2019-05-06] MEDS: NEBIVOLOL 10 MG TABLET (FP) PO SCH (09:24)
[2019-05-06] MEDS: TAMOXIFEN CITRATE 10 MG TABLET PO SCH (09:24)
[2019-05-06] MEDS: PANTOPRAZOLE 40 MG TABLET (FP) PO SCH (09:24)
[2019-05-06] MEDS: VALSARTAN 160 MG TABLET (UD) PO SCH (09:24)
[2019-05-06] MEDS: LIDOCAINE 5% TOPICAL PATCH TP SCH (09:25)
[2019-05-06] MEDS: MEMANTINE HCL 5 MG TABLET (UD) PO SCH (09:25)
--- NOTE | 2019-05-06 12:37 | PN ---
Teaching Attending Note Name of Resident: Nelly Spears ATTENDING PHYSICIAN STATEMENT I saw and evaluated the patient. I reviewed the resident's note and discussed the case with the resident. I agree with the resident's findings and plan as documented. SUBJECTIVE:pain much improved. denies CP, SOB, fever, chills, N/V/C/D, bowel/ bladder incontinence OBJECTIVE: Last Vital Signs Temp Pulse Resp BP Pulse Ox 98.9 F 89 18 109/62 95 05/06/19 10:00 05/06/19 10:00 05/06/19 10:00 05/06/19 10:00 05/06/19 10:00 General NAD Extremities R thigh pain with reduced strength 2/5 RLE. sensation grossly intact. ASSESSMENT AND PLAN: 78yo F [facility] anemia, HTN, hypothyroid, breast cancer presented to the ER for RLE pain after falling in the shower and seen on imaging to have diffuse degenerative disease 1. RLE pain-L3-L4 disc herniation. MRI showing L2 nerve impingement which is consistent with previous MRI. cont with pain control with oxy and flexeril. can f/u [facility] neurosurg to discuss options. 2. JUSTINE- due to dehydration. now resolved. 3. HTN- now controlled. cont home medications 4. anemia 5. Hypothyroid- LT4 6. breast cancer- outpatient management 7. DVT ppx- hep sq 8. only ambulated 8 feet and recommend JULIOCESAR. agreeable to going. medically optimized for discharge. awaiting auth and bed placement
[2019-05-06 15:43] VITALS: BP 125/112; PULSE 70; TEMP 98.4
--- NOTE | 2019-05-06 20:42 | DS ---
Physical Exam: SUBJECTIVE: Patient seen and examined. She reports continued right lateral thigh pain but improves with analgesics. OBJECTIVE: Vital Signs Period Temp Pulse Resp BP Sys/Soler Pulse Ox Last 24 Hr 98.4 F-98.9 F 70-89 18-20 109-147/62-112 95-98 PHYSICAL EXAM GENERAL: The patient is awake, alert, and fully oriented, in no acute distress. HEAD: Normal with no signs of trauma. EYES: PERRL, extraocular movements intact, sclera anicteric, conjunctiva clear. No ptosis. ENT: Ears normal, nares patent, moist mucous membranes. NECK: Trachea midline, full range of motion, supple. LUNGS: Breath sounds equal, clear to auscultation bilaterally, no wheezes, no crackles, no accessory muscle use. HEART: Regular rate and rhythm, S1, S2 without murmur, rub or gallop. ABDOMEN: Soft, nontender, nondistended, normoactive bowel sounds. EXTREMITIES: 2+ pulses, warm, well-perfused, trace LE edema, strength 2/5 right leg flexion at hip, 5/5 extension, 5/5 dorsiflexion, plantar flexion; left leg 5 /5 in all, sensation intact NEUROLOGICAL: Cranial nerves II through XII grossly intact. Normal speech, gait not observed. PSYCH: Normal mood, normal affect. SKIN: Warm, dry, normal turgor, no rashes or lesions noted LABS Laboratory Results - last 24 hr 05/06/19 05/06/19 08:05 08:05 WBC 6.5 RBC 3.47 L Hgb 11.5 Hct 34.4 MCV 99.3 H MCH 33.3 MCHC 33.5 RDW 12.7 Plt Count 247 MPV 8.6 Absolute Neuts (auto) 3.4 Neutrophils % 51.5 Lymphocytes % 34.4 D Monocytes % 9.6 Eosinophils % 3.4 Basophils % 1.1 Nucleated RBC % 0 Sodium 141 Potassium 3.9 Chloride 102 Carbon Dioxide 26 Anion Gap 12 BUN 15.6 Creatinine 1.1 Est GFR (CKD-EPI)AfAm 56.48 Est GFR (CKD-EPI)NonAf 48.73 Random Glucose 93 Calcium 9.4 Total Bilirubin 0.4 AST 26 ALT 30 Alkaline Phosphatase 59 Total Protein 7.2 Albumin 3.5 HOSPITAL COURSE: Ms. Fernandez is a 78y/o female with iron deficiency anemia, breast CA s/p RT and lumpectomy (2013), GERD, HTN, HLD, hypothyroidism, glaucoma, and restless legs syndrome who presents with RLE pain s/p mechanical fall. She has hx of disc disease and is monitored by neurosurgery. Pelvic CT was negative for fx, positive for L3-L4 posterolateral herniation, L5-S1 disc space narrowing with endplate sclerosis, foraminal stenosis. MRI showed L2 nerve impingement relatively unchanged from October 2018. She was unable to walk >15 feet with PT, so she was recommended to SNF. Pt also had iron deficiency anemia despite iron supplementation 350mg daily at home. She was given IV dose and was prescribed iron sulfate 350mg BID at d/c. Pramipexole dose was split to BID. She was told to follow up with PCP, neurosurgery, and pain management after d/c from SNF. Date of Admission:05/03/19 Date of Discharge: 05/06/19 Minutes to complete discharge: 35 Discharge Summary Reason For Visit: INABILITY TO AMBULATE Condition: Stable - Instructions Diet, Activity, Other Instructions: Hospital Visit: You were admitted to the hospital for your leg pain and for your fall. You had x -rays and a CT scan that showed no fractures in your leg or pelvis. You were found to have some spinal stenosis with a bulging disk. You were assessed by neurosurgeon and you did not need surgery at this time. You also had labs that showed you still have iron deficiency anemia. You were treated with IV iron. You are being discharged to a facility for a short time in order to help you get stronger before you go home. Medications: Please resume your home medications as directed, except for the following: You will be given a prescription for iron 350mg to take twice a day instead. Your stool may be darker than usual. This is a normal side effect from taking iron. Your pramiprexole dosage has been adjusted. You will take 0.375mg in the morning and 0.75mg at night. Follow up: Please follow up with your primary car doctor within a week after you are discharged from your rehab facility. A referral to Dr. Valdez has been provided. Please follow up with Dr. Downing within a week after you are discharged from your rehab facility. Follow up with neurologist Dr. Davila within one week of hospital discharge. Other Instructions: Return to the nearest emergency room if you have another fall, your pain cannot be controlled with medications, you have extreme dizziness, or if you feel weakness. Referrals: Reese Valdez MD [Staff Physician] - Lokesh Downing MD, TAWANA [Staff Physician] - Lobo Davila MD [Staff Physician] - Disposition: LONG TERM FACILITY - Home Medications Comprehensive Discharge Medication List: Ambulatory Orders Atorvastatin Ca [Lipitor] 20 mg PO HS 01/03/14 Levothyroxine [Synthroid -] 75 mcg PO DAILY 01/03/14 Nebivolol HCl [Bystolic] 10 mg PO BID 01/03/14 Aspirin Coated [Ecotrin -] 81 mg PO DAILY #0 01/04/14 Pantoprazole Sodium 40 mg PO DAILY #90 tablet.dr 02/06/18 Tamoxifen Citrate 20 mg PO DAILY 02/06/18 Olmesartan/Hydrochlorothiazide [Olmesartan-Hctz 40-25 mg Tab] 1 each PO DAILY Latanoprost 0.005% Eye Drops [Xalatan 0.005% Eye Drops -] 1 drop OU HS 05/03/19 Memantine HCl [Namenda -] 5 mg PO BID 05/03/19 Acetaminophen [Tylenol .Regular Strength -] 650 mg PO Q6H PRN tablet 05/06/19 Donepezil HCl [Aricept -] 5 mg PO HS tablet 05/06/19 Pramipexole Di-HCl [Pramipexole ER] 0.375 mg PO AM 30 Days #30 tab.er.24h Pramipexole Di-HCl [Pramipexole ER] 0.75 mg PO HS 30 Days #30 tab.er.24h This patient is new to me today: No Emergency Visit: Yes ED Registration Date: 05/03/19 Care time: The patient presented to the Emergency Department on the above date and was hospitalized for further evaluation of their emergent condition. Critical Care patient: No - Discharge Referral Referred to [facility] Med P.C.: No ATTENDING PHYSICIAN STATEMENT I saw and evaluated the patient. I reviewed the resident's note and discussed the case with the resident. I agree with the resident's findings and plan as documented. SUBJECTIVE: OBJECTIVE: ASSESSMENT AND PLAN:
== END 2019-05-06 20:53 | DRG 552 ==
LOC: JER 15:48 → JERBED 18:36 → OBSVTOIN 18:36 → J6S 22:18
PROVIDERS: ADMIT Internal Medicine; ATTEND Internal Medicine
DX: M51.26 Other intervertebral disc displacement, lumbar region (principal); N17.9 Acute kidney failure, unspecified; I67.4 Hypertensive encephalopathy; E86.0 Dehydration; I10 Essential (primary) hypertension; E03.9 Hypothyroidism, unspecified; Z85.3 Personal history of malignant neoplasm of breast; K21.9 Gastro-esophageal reflux disease without esophagitis; H40.9 Unspecified glaucoma; D50.9 Iron deficiency anemia, unspecified; G25.81 Restless legs syndrome; E78.5 Hyperlipidemia, unspecified; M54.10 Radiculopathy, site unspecified; G43.909 Migraine, unspecified, not intractable, without status migrainosus; E66.3 Overweight; Z68.32 Body mass index [BMI] 32.0-32.9, adult
CPT/HCPCS: 36415; 70551-TC; 72100-TC-FY; 72148-TC; 72192-TC; 73502-TC-RT-FY; 73523-TC-FY; 76775-TC; 80048; 80053; 81003; 82565; 82607; 82728; 82746; 83540; 83550; 83735; 84100; 84300; 84443; 84540; 85025; 85027; 85044; 85651; 86140; 93005; 93010; 93971-TC; 97116-GP; 99284-25; J1644; J1756; J7030

== ENCOUNTER 2019-10-25 16:16 | Inpatient (IN) | payer OTHER, MEDICARE ==
--- NOTE | 2019-10-25 19:25 | PDOC ---
History of Present Illness - General Chief Complaint: Shortness of Breath Stated Complaint: SOB Time Seen by Provider: 10/25/19 19:08 - History of Present Illness Initial Comments: 79F PMH CHF, HTN, HLD, iron deficiency anemia, left breast CA s/p lumpectomy, GERD, hypothyroid, glaucoma, herniated discs, and restless leg syndrome sent in by PCP for continued DIAZ. Was sent in [facility] on 10/22/18 by PCP for DIAZ and dc'd after IV lasix. Persistent but non-worsening sx. DIAZ x 2 weeks now. Endorses chronic orthopnea, unchanged, sleeps on 2 pillows. Denies f/c, cp/palpitations, cough. Denies n/v, dysuria, hesistancy. Ambulates w/ walker. Past History - Past Medical History Allergies/Adverse Reactions: Allergies Allergy/AdvReac Type Severity Reaction Status Date / Time No Known Allergies Allergy Verified 10/25/19 16:45 Home Medications: Ambulatory Orders Atorvastatin Ca [Lipitor] 20 mg PO HS 01/03/14 Levothyroxine [Synthroid -] 75 mcg PO DAILY 01/03/14 Aspirin Coated [Ecotrin -] 81 mg PO DAILY #0 01/04/14 Pantoprazole Sodium 40 mg PO DAILY #90 tablet. 02/06/18 Tamoxifen Citrate 20 mg PO DAILY 02/06/18 Latanoprost 0.005% Eye Drops [Xalatan 0.005% Eye Drops -] 1 drop OU HS 05/03/19 Memantine HCl [Namenda -] 5 mg PO BID 05/03/19 Acetaminophen [Tylenol .Regular Strength -] 650 mg PO Q6H PRN tablet 05/06/19 Pramipexole Di-HCl [Pramipexole ER] 0.375 mg PO AM 30 Days #30 tab.er.24h Pramipexole Di-HCl [Pramipexole ER] 0.75 mg PO HS 30 Days #30 tab.er.24h Donepezil HCl [Aricept -] 10 mg PO DAILY 10/22/19 Olmesartan Medoxomil 40 mg PO DAILY 10/22/19 Furosemide [Lasix -] 40 mg PO DAILY 10/26/19 Anemia: Yes Asthma: No Cancer: Yes (LEFT BREAST CANCER) Cardiac Disorders: No CVA: No COPD: No CHF: Yes Dementia: Yes Diabetes: No GI Disorders: Yes (NSAID GASTRITIS, COLON ADENOMAS) Disorders: No HTN: Yes Hypercholesterolemia: Yes Liver Disease: Yes (COLON ADENOMA) Seizures: No Thyroid Disease: Yes (HYPOTHYROIDISM) - Surgical History Abdominal Surgery: Yes (RIGHT INGUINAL REPAIR) Appendectomy: Yes (EGD,COLONOSCOPY) Cardiac Surgery: No Cholecystectomy: No Lung Surgery: No Neurologic Surgery: No Orthopedic Surgery: No - Psycho Social/Smoking Cessation Hx Smoking History: Former smoker Have you smoked in the past 12 months: No If you are a former smoker, when did you quit?: 1999 Information on smoking cessation initiated: No Hx Alcohol Use: No Drug/Substance Use Hx: No Substance Use Type: Alcohol Hx Substance Use Treatment: No Review of Systems - Review of Systems Comments:: CONSTITUTIONAL: Denies F / C HEENT: Denies sore throat, rhinorrhea RESP: Endorses DIAZ, occasional wheezes, chronic orthopnea. Denies SOB, cough CARD: Denies chest pain, palpitations GI: Denies N / V / D, abdominal pain, bloody stool, inability to tolerate PO : Denies dysuria, frequency SKIN: Denies rashes NEURO: Denies numbness, tingling, weakness *Physical Exam - Vital Signs Last Vital Signs Temp Pulse Resp BP Pulse Ox 97.9 F 78 16 136/61 100 10/25/19 16:38 10/25/19 16:38 10/25/19 16:38 10/25/19 16:38 10/25/19 16:38 - Physical Exam GEN: NAD, comfortable. AAOx3. HEENT: NC/AT. No facial asymmetry. Normal voice. Supple neck w/ FROM. CV: S1/S2, RRR, no m/r/g LUNG: bibasilar crackles o/w CTAB GI: Soft, ndnt, +BS, no guarding, no rebound. MSK: 2+ pitting edema b/l LE. No obvious deformities of all extremities. SKIN: Warm, dry, no rashes appreciated. PSYCH: Normal mood and affect. ED Treatment Course - LABORATORY CBC & Chemistry Diagram: 10/25/19 19:50 10/25/19 19:50 Medical Decision Making - Medical Decision Making 10/25/19 19:27 79F CHF, HTN, HLD, iron deficiency anemia, left breast CA s/p lumpectomy, RLS sent by PCP for persistent DIAZ. Crackles, b/l pitting edema. DDx - likely CHF exacerbation; consider COPD, ACS; unlikely PE - CBC, CMP, Trop, BNP - EKG - CXR - Admit EKG 1918 HR 77 KS 200 QRS 98 QTc 452; NSR on strip. 10/25/19 20:20 CXR read: A single view of the chest reveals clear lungs, and large heart, normal mediastinum and slightly prominent evette. There is no sign of infiltrate or failure. Since 10/22/2019 there is a better inspiration and decreased lung markings //admitted Discharge - Discharge Information Problems reviewed: Yes Clinical Impression/Diagnosis: DIAZ (dyspnea on exertion) Condition: Stable - Follow up/Referral - Patient Discharge Instructions - Post Discharge Activity
[2019-10-25 20:21] LABS: BASO % 1.1 % (0-2.0); EOS % 4.3 % (0-4.5); HEMATOCRIT 31.1 % (32.4-45.2); HEMOGLOBIN 10.1 GM/dL (10.7-15.3); LYMPH % 28.6 % (8-40); MCH 32.2 pg (25.7-33.7); MCHC 32.5 g/dl (32.0-36.0); MEAN CELL VOLUME 99.1 fl (80-96); MONO % 12.2 % (3.8-10.2); NEUT % 53.8 % (42.8-82.8); PLATELET COUNT 252 K/MM3 (134-434); RBC 3.13 M/mm3 (3.60-5.2); RDW 12.8 % (11.6-15.6); WHITE BLOOD COUNT 5.8 K/mm3 (4.0-10.0)
[2019-10-25 20:39] LABS: INR 0.95 (0.83-1.09); PROTHROMBIN TIME (PATIENT) 11.2 SEC (9.7-13.0)
[2019-10-25 20:41] LABS: ACTIVATED PTT 19.5 SECONDS (25.2-36.5)
[2019-10-25 20:55] LABS: ALBUMIN 3.1 g/dl (3.4-5.0); BILIRUBIN,TOTAL 0.2 mg/dL (0.2-1); BLOOD UREA NITROGEN 18.7 mg/dL (7-18); CALCIUM 8.9 mg/dL (8.5-10.1); CREATININE 1.2 mg/dL (0.55-1.3); N-TERMINAL BNP 1491.7 pg/ml (5-450); POTASSIUM 4.6 mmol/L (3.5-5.1); TOT PROT 6.4 g/dl (6.4-8.2)
--- NOTE | 2019-10-25 22:06 | PDOC ---
Attending Attestation - Resident Resident Name: RodriguezLobo - ED Attending Attestation I have performed the following: I have examined & evaluated the patient, The case was reviewed & discussed with the resident, I agree w/resident's findings & plan, Exceptions are as noted - HPI HPI: 10/25/19 22:05 79F PMH CHF, HTN, HLD, iron deficiency anemia, left breast CA s/p lumpectomy, GERD, hypothyroid, glaucoma, herniated discs, and restless leg syndrome here with worsening sob on exertion pt denies cp. no f/c was seen by pcp Dr Christianson sent for admission. pt also reported orthopnea and leg edema. no f/c no cough no h/o pe or dvt. 10/25/19 22:19 - Physicial Exam PE: 10/25/19 22:19 awake alert lungs with fine crackles at bilat bases. heart rrr no mrg abd soft nt n ext bilat pitting edema. 2+ . - Medical Decision Making 10/25/19 22:19 79 yo F h/o htn chf hld restless leg here with c/o bilat leg edema. exertional dyspnea, and orthopnea. likley chf exacerbation. plan cbc cmp trop labs ekg cxr. 10/25/19 22:20 BNP is elevated trop negative. Heart Score/ECG Review #1 General ECG Interpretation: Sinus Rhythm, Normal Rate (77), Normal Intervals, No acute ischemic changes
[2019-10-25] MEDS ORDERED: FUROSEMIDE 40 MG/4 ML INJECTABLE VIAL IVPUSH SCH (23:03)
--- NOTE | 2019-10-25 23:10 | HP ---
CHIEF COMPLAINT: dyspnea PCP: dr. worley HISTORY OF PRESENT ILLNESS: 79 y.o. F PMH HTN, HLD, hypothyroidism, iron def anemia, left breast CA s/p RT & lumpectomy in 2013, GERD, restless leg syndrome, glaucoma, colon adenomas presenting from PCP office for dyspnea x 2 weeks. Patient presented to the ED on 10/22 for similar symptoms, was found to have incr density near left hilum; was given iv lasix & d/c'd home. Today patient says the SOB has improved slightly but is still dyspneic w/ exertion w/ significant bendopnia. Also endorses a cough productive of white sputum x 2 weeks. Sleeps using 2 pillows under her head at night. Denies PND. Also endorses increasing LE edema. Patient state her pcp recently increased her home lasix dose from 20mg to 40mg daily and she has had a slight improvement of her symptoms. Says she has been compliant with medication and has not missed a dose since leaving the ED on . Of note, pt's sister and son who she lives with had recent cold symptoms. ER course was notable for: (1) BNP 1491 (decr from prior ed visit, was 2674) (2) (3) Recent Travel: denies PAST MEDICAL HISTORY: as per hpi PAST SURGICAL HISTORY: Partial thyroidectomy, left inguinal hernia repair, left breast lumpectomy, left cataract surgery, EGD/Colonoscopy (01/2019): gastritis, small hiatal hernia, colon polyps, diverticulosis Social History: Smoking: ex-smoker quit 20 yrs ago Alcohol: social not often Drugs: denies Allergies No Known Allergies Allergy (Verified 10/25/19 16:45) HOME MEDICATIONS: Home Medications Medication Instructions Recorded Atorvastatin Ca [Lipitor] 20 mg PO HS 01/03/14 Levothyroxine [Synthroid -] 75 mcg PO DAILY 01/03/14 Nebivolol HCl [Bystolic] 10 mg PO DAILY 01/03/14 Aspirin Coated [Ecotrin -] 81 mg PO DAILY #0 01/04/14 Pantoprazole Sodium 40 mg PO DAILY #90 tablet. 02/06/18 Tamoxifen Citrate 20 mg PO DAILY 02/06/18 Latanoprost 0.005% Eye Drops 1 drop OU HS 05/03/19 [Xalatan 0.005% Eye Drops -] Memantine HCl [Namenda -] 5 mg PO BID 05/03/19 Acetaminophen [Tylenol .Regular 650 mg PO Q6H PRN tablet 05/06/19 Strength -] Pramipexole Di-HCl [Pramipexole ER] 0.375 mg PO AM 30 Days #30 05/06/19 tab.er.24h Pramipexole Di-HCl [Pramipexole ER] 0.75 mg PO HS 30 Days #30 05/06/19 tab.er.24h Donepezil HCl [Aricept -] 10 mg PO DAILY 10/22/19 Furosemide 20 mg PO DAILY 10/22/19 Olmesartan Medoxomil 40 mg PO DAILY 10/22/19 REVIEW OF SYSTEMS CONSTITUTIONAL: Absent: fever, chills, diaphoresis, generalized weakness, malaise, loss of appetite, weight change HEENT: Absent: rhinorrhea, nasal congestion, throat pain, throat swelling, difficulty swallowing, mouth swelling, ear pain, eye pain, visual changes CARDIOVASCULAR: Absent: chest pain, syncope, palpitations, irregular heart rate, lightheadedness , peripheral edema RESPIRATORY: cough, shortness of breath, dyspnea with exertion, orthopnea, wheezing Absent: stridor, hemoptysis GASTROINTESTINAL: Absent: abdominal pain, abdominal distension, nausea, vomiting, diarrhea, constipation, melena, hematochezia GENITOURINARY: Absent: dysuria, frequency, urgency, hesitancy, hematuria, flank pain, genital pain MUSCULOSKELETAL: Absent: myalgia, arthralgia, joint swelling, back pain, neck pain SKIN: Absent: rash, itching, pallor HEMATOLOGIC/IMMUNOLOGIC: Absent: easy bleeding, easy bruising, lymphadenopathy, frequent infections ENDOCRINE: Absent: unexplained weight gain, unexplained weight loss, heat intolerance, cold intolerance NEUROLOGIC: Absent: headache, focal weakness or paresthesias, dizziness, unsteady gait, seizure, mental status changes, bladder or bowel incontinence PSYCHIATRIC: Absent: anxiety, depression, suicidal or homicidal ideation, hallucinations. PHYSICAL EXAMINATION GENERAL: Awake, alert, and fully oriented, in no acute distress. HEENT: NCAT no jvd, sclera clear LUNGS: B/l rhonchi at bases. No wheezes. No accessory muscle use. Saturating 97 % on RA. HEART: Regular rate and rhythm, normal S1 and S2 without murmur, rub or gallop. ABDOMEN: Soft, nontender, not distended, normoactive bowel sounds. MUSCULOSKELETAL: Normal range of motion at all joints. EXTREMITIES: 2+ pulses, warm, well-perfused. 1+ LE pitting edema b/l. NEUROLOGICAL: Cranial nerves II-XII intact. PSYCHIATRIC: Appropriate mood and affect. SKIN: Warm, dry ASSESSMENT/PLAN: 79 y.o. F PMH HTN, HLD, hypothyroidism, iron def anemia, left breast CA s/p RT & lumpectomy in 2013, GERD, restless leg syndrome, glaucoma, colon adenomas presenting from PCP office for dyspnea #Acute CHF exacerbation #HTN #HLD #PRIMO #GERD #RLS #Glaucoma #FEN #PPX #Dispo ATTENDING PHYSICIAN STATEMENT I saw and evaluated the patient. I reviewed the resident's note and discussed the case with the resident. I agree with the resident's findings and plan as documented. SUBJECTIVE: OBJECTIVE: ASSESSMENT AND PLAN:
[2019-10-25] MEDS ORDERED: FUROSEMIDE 40 MG/4 ML INJECTABLE VIAL ONE (23:21)
--- NOTE | 2019-10-25 23:37 | HP ---
CHIEF COMPLAINT: dyspnea PCP: dr. worley HISTORY OF PRESENT ILLNESS: 79 y.o. F PMH HTN, HLD, hypothyroidism, iron def anemia, left breast CA s/p RT & lumpectomy in 2013, GERD, restless leg syndrome, glaucoma, colon adenomas presenting from PCP office for dyspnea x 2 weeks. Patient presented to the ED on 10/22 for similar symptoms, was found to have incr density near left hilum; was given iv lasix & d/c'd home. Today patient says the SOB has improved slightly but is still dyspneic w/ exertion w/ significant bendopnia. Also endorses a cough productive of white sputum x 2 weeks. Sleeps using 2 pillows under her head at night. Denies PND. Also endorses increasing LE edema. Patient state her pcp recently increased her home lasix dose from 20mg to 40mg daily and she has had a slight improvement of her symptoms. Says she has been compliant with medication and has not missed a dose since leaving the ED on . Of note, pt's sister and son who she lives with had recent cold symptoms. ER course was notable for: (1) BNP 1491 (decr from prior ed visit, was 2674) (2) (3) Recent Travel: denies PAST MEDICAL HISTORY: as per hpi PAST SURGICAL HISTORY: Partial thyroidectomy, left inguinal hernia repair, left breast lumpectomy, left cataract surgery, EGD/Colonoscopy (01/2019): gastritis, small hiatal hernia, colon polyps, diverticulosis Social History: Smoking: ex-smoker quit 20 yrs ago Alcohol: social not often Drugs: denies Allergies No Known Allergies Allergy (Verified 10/25/19 16:45) HOME MEDICATIONS: Home Medications Home Medications Medication Instructions Recorded Atorvastatin Ca [Lipitor] 20 mg PO HS 01/03/14 Levothyroxine [Synthroid -] 75 mcg PO DAILY 01/03/14 Nebivolol HCl [Bystolic] 10 mg PO DAILY 01/03/14 Aspirin Coated [Ecotrin -] 81 mg PO DAILY #0 01/04/14 Pantoprazole Sodium 40 mg PO DAILY #90 tablet. 02/06/18 Tamoxifen Citrate 20 mg PO DAILY 02/06/18 Latanoprost 0.005% Eye Drops 1 drop OU HS 05/03/19 [Xalatan 0.005% Eye Drops -] Memantine HCl [Namenda -] 5 mg PO BID 05/03/19 Acetaminophen [Tylenol .Regular 650 mg PO Q6H PRN tablet 05/06/19 Strength -] Pramipexole Di-HCl [Pramipexole ER] 0.375 mg PO AM 30 Days #30 05/06/19 tab.er.24h Pramipexole Di-HCl [Pramipexole ER] 0.75 mg PO HS 30 Days #30 05/06/19 tab.er.24h Donepezil HCl [Aricept -] 10 mg PO DAILY 10/22/19 Furosemide 20 mg PO DAILY 10/22/19 Olmesartan Medoxomil 40 mg PO DAILY 10/22/19 REVIEW OF SYSTEMS CONSTITUTIONAL: Absent: fever, chills, diaphoresis, generalized weakness, malaise, loss of appetite, weight change HEENT: Absent: rhinorrhea, nasal congestion, throat pain, throat swelling, difficulty swallowing, mouth swelling, ear pain, eye pain, visual changes CARDIOVASCULAR: Absent: chest pain, syncope, palpitations, irregular heart rate, lightheadedness , peripheral edema RESPIRATORY: cough, shortness of breath, dyspnea with exertion, orthopnea, wheezing Absent: stridor, hemoptysis GASTROINTESTINAL: Absent: abdominal pain, abdominal distension, nausea, vomiting, diarrhea, constipation, melena, hematochezia GENITOURINARY: Absent: dysuria, frequency, urgency, hesitancy, hematuria, flank pain, genital pain MUSCULOSKELETAL: Absent: myalgia, arthralgia, joint swelling, back pain, neck pain SKIN: Absent: rash, itching, pallor HEMATOLOGIC/IMMUNOLOGIC: Absent: easy bleeding, easy bruising, lymphadenopathy, frequent infections ENDOCRINE: Absent: unexplained weight gain, unexplained weight loss, heat intolerance, cold intolerance NEUROLOGIC: Absent: headache, focal weakness or paresthesias, dizziness, unsteady gait, seizure, mental status changes, bladder or bowel incontinence PSYCHIATRIC: Absent: anxiety, depression, suicidal or homicidal ideation, hallucinations. PHYSICAL EXAMINATION GENERAL: Awake, alert, and fully oriented, in no acute distress. HEENT: NCAT PERRLA, sclera clear LUNGS: B/l crackles at bases. No wheezes. No accessory muscle use. Saturating 97 % on RA. HEART: Regular rate and rhythm, normal S1 and S2 without murmurs. Mild JVD noted ABDOMEN: Soft, nontender, not distended, normoactive bowel sounds. MUSCULOSKELETAL: Normal range of motion at all joints. EXTREMITIES: 2+ pulses, warm, well-perfused. 1+ LE pitting edema b/l. NEUROLOGICAL: Cranial nerves II-XII intact. PSYCHIATRIC: Appropriate mood and affect. SKIN: Warm, dry ASSESSMENT/PLAN: 79 y.o. F PMH HTN, HLD, hypothyroidism, iron def anemia, dementia, left breast CA s/p RT & lumpectomy in 2013, GERD, restless leg syndrome, glaucoma, colon adenomas presenting from PCP office for dyspnea #Acute CHF exacerbation -BMP elevated although downtrending since 10/22 -CXR showing better inspiratoon, decr lung markings since 10/22 study -recently incr lasix to 40mg lujan by pcp -giving iv lasix on this visit, 40mg bid-- 1 dose now -monitor Is & Os strictly -daily weights -f/u echo -fluid restriction #HTN -continue home meds: asa, olesartan -adding spironolactone -EKG: NSR, LVH, no ST changes. prolonged [place] 200 -trop negative x1 -monitor bp #HLD -continue home atorvastatin 20mg daily -low fat diet #PRIMO -stable -no acute issues #GERD -continue ppi #RLS -continue pramipexole, 0.375mg AM/ 0.75mg HS #hypothyroidism -continue synthroid 75mcg daily #Dementia -continue memantine, donepezil #Glaucoma -continue latanoprost drops HS #FEN -fluid restriction -trend lytes replete prn -sodium/ fat controlled diet #PPX -ppi -heparin sq #Dispo -telemetry Visit type - Emergency Visit Emergency Visit: Yes ED Registration Date: 10/25/19 Care time: The patient presented to the Emergency Department on the above date and was hospitalized for further evaluation of their emergent condition. - New Patient This patient is new to me today: Yes Date on this admission: 10/26/19 - Critical Care Critical Care patient: No ATTENDING PHYSICIAN STATEMENT I saw and evaluated the patient. I reviewed the resident's note and discussed the case with the resident. I agree with the resident's findings and plan as documented. SUBJECTIVE: OBJECTIVE: ASSESSMENT AND PLAN:
--- NOTE | 2019-10-26 00:48 | PN ---
Teaching Attending Note Name of Resident: Bing Fitzpatrick ATTENDING PHYSICIAN STATEMENT I saw and evaluated the patient. I reviewed the resident's note and discussed the case with the resident. I agree with the resident's findings and plan as documented. SUBJECTIVE: 79-year-old -[place]ian woman with a history of iron deficiency anemia, left breast cancer status post radiation therapy and lumpectomy in 2013, former tobacco smoker, GERD, colon adenomas, hypertension, hypothyroidism, glaucoma, herniated disks, restless leg syndrome presents complaining of shortness of breath for about 1 week. She also has positive orthopnea, decreased exercise tolerance, intermittent dry cough. Patient was seen in the emergency room on was given furosemide IV and then was discharged home after she felt better. She returns again now with similar complaint. OBJECTIVE: Last Vital Signs Temp Pulse Resp BP Pulse Ox 98.2 F 73 15 147/73 96 10/25/19 19:28 10/25/19 20:04 10/25/19 20:04 10/25/19 20:04 10/25/19 20:04 On physical exam patient was a elderly woman not in any acute distress. She was found to be ambulating around her room. Head was atraumatic, normocephalic with moist mucous membranes. No sinus tenderness appreciated. Bilateral JVD appreciated. Neck was supple. S1, S2, no murmurs appreciated. On lung exam bibasilar crackles were appreciated. Abdomen is obese, nontender to palpation with normal bowel sounds present. Bilateral pedal edema 2+ up to knees. Negative Homans sign. Abnormal Lab Results 10/25/19 10/25/19 10/25/19 19:50 19:50 19:50 RBC 3.13 L Hgb 10.1 L Hct 31.1 L MCV 99.1 H Monocytes % 12.2 H PTT (Actin FS) 19.5 L Anion Gap 5 L BUN 18.7 H B-Natriuretic Peptide 1491.7 H Albumin 3.1 L Chest x-ray appreciated, AP, prominent pulmonary vasculature bilaterally however costophrenic angles are sharp. Cardiomegaly was appreciated. EKG showed normal sinus rhythm and LVH. ASSESSMENT AND PLAN: 79-year-old man with acute CHF exacerbation. High BNP, physical exam consistent with CHFJVD, pedal edema bilaterally. Troponins were negative on and 10/25. I's and O's Daily weights Lasix 40 mg stat and then twice daily Transthoracic echo Salt and free water restriction Beta-leo ROQUE inhibitor Consider spironolactone Cardiology evaluation Lower extremity Doppler ultrasound to rule out DVT #Chronic microcytic anemia Vitamin B12 TSH Iron studies, ferritin #Hypothyroidism TSH Continue home dose Synthroid #History of breast cancer Continue with home dose tamoxifen #Restless leg syndrome Continue with home dose pramipexole #GERD Continue with Protonix #Hypoalbuminemia DVT prophylaxisheparin subcutaneously
[2019-10-26] MEDS ORDERED: HEPARIN NA (PORCINE) 5,000 UNITS/ML 1ML VIAL ONE (05:23)
[2019-10-26] MEDS ORDERED: LEVOTHYROXINE NA 25 MCG TABLET (FP) ONE (05:23)
[2019-10-26] MEDS: LEVOTHYROXINE NA 75 MCG TABLET (FP) PO SCH (06:12)
[2019-10-26] MEDS: HEPARIN NA (PORCINE) 5,000 UNITS/ML 1ML VIAL SQ SCH ×3 (06:12→22:43)
[2019-10-26 06:49] LABS: BASO % 0.7 % (0-2.0); EOS % 4.6 % (0-4.5); HEMATOCRIT 30.5 % (32.4-45.2); HEMOGLOBIN 10.2 GM/dL (10.7-15.3); LYMPH % 28.2 % (8-40); MCH 32.5 pg (25.7-33.7); MCHC 33.3 g/dl (32.0-36.0); MEAN CELL VOLUME 97.7 fl (80-96); MEAN PLT VOLUME 8.5 fl (7.5-11.1); MONO % 12.7 % (3.8-10.2); NEUT % 53.8 % (42.8-82.8); PLATELET COUNT 252 K/MM3 (134-434); RBC 3.13 M/mm3 (3.60-5.2); RDW 13.2 % (11.6-15.6); WHITE BLOOD COUNT 4.8 K/mm3 (4.0-10.0)
[2019-10-26] MEDS ORDERED: PRAMIPEXOLE DI HCL 0.375 MG PO SCH (07:00)
[2019-10-26 07:22] LABS: ALBUMIN 3.2 g/dl (3.4-5.0); BILIRUBIN,TOTAL 0.4 mg/dL (0.2-1); BLOOD UREA NITROGEN 18.2 mg/dL (7-18); CALCIUM 8.8 mg/dL (8.5-10.1); CREATININE 1.2 mg/dL (0.55-1.3); POTASSIUM 4.2 mmol/L (3.5-5.1); TOT PROT 6.7 g/dl (6.4-8.2)
[2019-10-26] MEDS ORDERED: PANTOPRAZOLE 40 MG TABLET ONE (07:28)
[2019-10-26] MEDS ORDERED: ASPIRIN COATED 81 MG TABLET.EC ONE (07:28)
[2019-10-26] MEDS ORDERED: SPIRONOLACTONE 25 MG TABLET (FP) ONE (07:29)
[2019-10-26] MEDS ORDERED: FUROSEMIDE 40 MG/4 ML INJECTABLE VIAL ONE (07:29)
[2019-10-26] MEDS: FUROSEMIDE 40 MG/4 ML INJECTABLE VIAL IVPUSH SCH ×2 (07:29→13:03)
[2019-10-26] MEDS: VALSARTAN 160 MG TABLET (UD) PO SCH (09:24)
[2019-10-26] MEDS: SPIRONOLACTONE 25 MG TABLET (FP) PO SCH (09:24)
[2019-10-26] MEDS: ASPIRIN COATED 81 MG TABLET.EC PO SCH (09:25)
[2019-10-26] MEDS: MEMANTINE HCL 5 MG TABLET (UD) PO SCH ×2 (09:25→22:42)
[2019-10-26] MEDS: TAMOXIFEN CITRATE 10 MG TABLET PO SCH (09:25)
[2019-10-26] MEDS: PANTOPRAZOLE 40 MG TABLET PO SCH (09:25)
--- NOTE | 2019-10-26 09:40 | EKG ---
Test Reason : Blood Pressure : / mmHG Vent. Rate : 077 BPM Atrial Rate : 077 BPM P-R Int : 200 ms QRS Dur : 098 ms QT Int : 400 ms P-R-T Axes : 047 020 036 degrees QTc Int : 452 ms NORMAL SINUS RHYTHM MODERATE VOLTAGE CRITERIA FOR LVH, MAY BE NORMAL VARIANT BORDERLINE ECG WHEN COMPARED WITH ECG OF 22-OCT-2019 13:51, NO SIGNIFICANT CHANGE WAS FOUND Confirmed by Mark Mejias MD ([id number]) on 10/26/2019 9:40:31 AM Referred By: Confirmed By:Mark Mejias MD
[2019-10-26] MEDS ORDERED: TAMOXIFEN CITRATE 20 MG PO SCH (10:00)
[2019-10-26] MEDS ORDERED: PATIENT'S OWN MEDICATION (NON-FORMULARY) (Olmesartan Medoxomil [Olmesartan Medoxomil] 40 M PO SCH (10:00)
[2019-10-26 10:15] LABS: EPI CELLS 1.4 /HPF (0-5/HPF); HYALINE CASTS 0 /lpf (0-8); PH,URINE 7.5 (5.0-8.0); URINE APPEARANCE CLEAR; URINE BACTERIA 45.9 /hpf (NEGATIVE); URINE BILIRUBIN NEGATIVE (NEGATIVE); URINE COLOR YELLOW; URINE GLUCOSE (UA) NEGATIVE (NEGATIVE); URINE KETONE NEGATIVE (NEGATIVE); URINE LEUK ESTERASE 1+ (NEGATIVE); URINE NITRITE NEGATIVE (NEGATIVE); URINE PROTEIN NEGATIVE (NEGATIVE); URINE RBC 0 /hpf (0-4); URINE UROBILINOGEN 0.2 mg/dL (0.2-1.0); URINE WBC 4 /hpf (0-5)
--- NOTE | 2019-10-26 10:21 | CON.CARD ---
Consult Consult Specialty:: Cardiology Referred by:: Hospitalist Reason for Consultation:: Cardiac evaluation - History of Present Illness Chief Complaint: Shortness of breath History of Present Illness: Patient is a 79 year old female known to Dr. Kd Holden, with underlying history of HTN, hypercholesterolemia, systolic/diastolic LV dysfunction with class 0-1 NYHA classification heart failure, carotid artery disease, organic brain, hypothyoidism, breast CA s/p lumpectomy followed by radiation therapy and degenerative lumbosacral disease who presented with shortness of breath, She presented to PCP office 2 weeks ago and was increased on Lasix from 20 mg daily to 40 mg daily. She complains of productive cough with white sputum. She denies chest pain this am. She denies palpitations. She complains of orthopnea. She denies fever or chills. She denies nausea, vomiting, diarrhea or abdominal pain. She denies headache or lightheadedness. - History Source History Provided By: Patient, Medical Record Limitations to Obtaining History: No Limitations - Past Medical History Cardio/Vascular: Yes: CAD, CHF, HTN, Hyperlipdemia Gastrointestinal: Yes: GERD Endocrine: Yes: Hypothyroidism - Past Surgical History Additional Surgical History: Lumpectomy - Alcohol/Substance Use Hx Alcohol Use: No - Smoking History Smoking history: Former smoker Have you smoked in the past 12 months: No If you are a former smoker, when did you quit?: 1999 Home Medications - Allergies Allergies/Adverse Reactions: Allergies Allergy/AdvReac Type Severity Reaction Status Date / Time No Known Allergies Allergy Verified 10/25/19 16:45 - Home Medications Home Medications: Ambulatory Orders Atorvastatin Ca [Lipitor] 20 mg PO HS 01/03/14 Levothyroxine [Synthroid -] 75 mcg PO DAILY 01/03/14 Aspirin Coated [Ecotrin -] 81 mg PO DAILY #0 01/04/14 Pantoprazole Sodium 40 mg PO DAILY #90 tablet. 02/06/18 Tamoxifen Citrate 20 mg PO DAILY 02/06/18 Latanoprost 0.005% Eye Drops [Xalatan 0.005% Eye Drops -] 1 drop OU HS 05/03/19 Memantine HCl [Namenda -] 5 mg PO BID 05/03/19 Acetaminophen [Tylenol .Regular Strength -] 650 mg PO Q6H PRN tablet 05/06/19 Pramipexole Di-HCl [Pramipexole ER] 0.375 mg PO AM 30 Days #30 tab.er.24h Pramipexole Di-HCl [Pramipexole ER] 0.75 mg PO HS 30 Days #30 tab.er.24h Donepezil HCl [Aricept -] 10 mg PO DAILY 10/22/19 Olmesartan Medoxomil 40 mg PO DAILY 10/22/19 Furosemide [Lasix -] 40 mg PO DAILY 10/26/19 Family Medical History Family Hx Diabetes: Mother, Father Other Family History: DM: siblings Review of Systems - Review of Systems Constitutional: denies: Chills, Fever Cardiovascular: reports: Shortness of Breath. denies: Chest Pain, Palpitations Respiratory: reports: Cough, Orthopnea, SOB, SOB on Exertion. denies: PND Gastrointestinal: denies: Abdominal Pain, Constipation, Diarrhea, Melena, Nausea , Rectal Bleeding, Vomiting Genitourinary: denies: Dysuria, Hematuria Neurological: denies: Dizziness, Headache, Seizure, Syncope Vital Signs: Vital Signs Temperature 98.2 F 10/25/19 19:28 Pulse Rate 55 L 10/26/19 07:43 Respiratory Rate 18 10/26/19 07:43 Blood Pressure 116/63 10/26/19 07:43 O2 Sat by Pulse Oximetry (%) 98 10/26/19 07:43 Eyes: Yes: PERRL HENT: Yes: Atraumatic Neck: Yes: Supple Respiratory: Yes: Diminished Gastrointestinal: Yes: Normal Bowel Sounds, Soft. No: Tenderness Cardiovascular: Yes: Regular Rate and Rhythm JVD: No PMI: Non-Displaced Heart Sounds: Yes: S1, S2 Murmur: Yes: Systolic Murmur, Grade 1 Edema: Yes Edema: LLE: Trace, RLE: Trace - Other Data Labs, Other Data: CBC, BMP 10/26/19 05:30 10/26/19 05:30 INR, PTT INR 0.95 (0.83-1.09) 10/25/19 19:50 Troponin, BNP 10/25/19 10/25/19 19:50 19:50 Troponin I 0.03 B-Natriuretic Peptide 1491.7 H Laboratory Results - last 24 hr 10/25/19 10/25/19 10/25/19 19:50 19:50 19:50 WBC 5.8 RBC 3.13 L Hgb 10.1 L Hct 31.1 L MCV 99.1 H MCH 32.2 MCHC 32.5 RDW 12.8 Plt Count 252 MPV 9.0 Absolute Neuts (auto) 3.1 Neutrophils % 53.8 Lymphocytes % 28.6 D Monocytes % 12.2 H Eosinophils % 4.3 Basophils % 1.1 Nucleated RBC % 0 PT with INR 11.20 INR 0.95 PTT (Actin FS) 19.5 L VBG pH POC VBG pCO2 POC VBG pO2 VBG HCO3 VBG O2 Sat (Antoni) VBG Base Excess Sodium 139 Potassium 4.6 Chloride 105 Carbon Dioxide 29 Anion Gap 5 L BUN 18.7 H Creatinine 1.2 Est GFR (CKD-EPI)AfAm 50.48 Est GFR (CKD-EPI)NonAf 43.56 Random Glucose 104 Calcium 8.9 Total Bilirubin 0.2 AST 30 ALT 36 Alkaline Phosphatase 62 Troponin I B-Natriuretic Peptide 1491.7 H Total Protein 6.4 Albumin 3.1 L TSH Urine Color Urine Appearance Urine pH Ur Specific [place] Urine Protein Urine Glucose (UA) Urine Ketones Urine Blood Urine Nitrite Urine Bilirubin Urine Urobilinogen Ur Leukocyte Esterase Urine WBC (Auto) Urine RBC (Auto) Urine Casts (Auto) U Epithel Cells (Auto) Urine Bacteria (Auto) 10/25/19 10/25/19 10/26/19 19:50 19:50 05:30 WBC 4.8 RBC 3.13 L Hgb 10.2 L Hct 30.5 L MCV 97.7 H MCH 32.5 MCHC 33.3 RDW 13.2 Plt Count 252 MPV 8.5 Absolute Neuts (auto) 2.6 Neutrophils % 53.8 Lymphocytes % 28.2 Monocytes % 12.7 H Eosinophils % 4.6 H Basophils % 0.7 Nucleated RBC % 0 PT with INR INR PTT (Actin FS) VBG pH Cancelled POC VBG pCO2 Cancelled POC VBG pO2 Cancelled VBG HCO3 Cancelled VBG O2 Sat (Antoni) Cancelled VBG Base Excess Cancelled Sodium Potassium Chloride Carbon Dioxide Anion Gap BUN Creatinine Est GFR (CKD-EPI)AfAm Est GFR (CKD-EPI)NonAf Random Glucose Calcium Total Bilirubin AST ALT Alkaline Phosphatase Troponin I 0.03 B-Natriuretic Peptide Total Protein Albumin TSH Urine Color Urine Appearance Urine pH Ur Specific [place] Urine Protein Urine Glucose (UA) Urine Ketones Urine Blood Urine Nitrite Urine Bilirubin Urine Urobilinogen Ur Leukocyte Esterase Urine WBC (Auto) Urine RBC (Auto) Urine Casts (Auto) U Epithel Cells (Auto) Urine Bacteria (Auto) 10/26/19 10/26/19 05:30 09:40 WBC RBC Hgb Hct MCV MCH MCHC RDW Plt Count MPV Absolute Neuts (auto) Neutrophils % Lymphocytes % Monocytes % Eosinophils % Basophils % Nucleated RBC % PT with INR INR PTT (Actin FS) VBG pH POC VBG pCO2 POC VBG pO2 VBG HCO3 VBG O2 Sat (Antoni) VBG Base Excess Sodium 141 Potassium 4.2 Chloride 106 Carbon Dioxide 30 Anion Gap 5 L BUN 18.2 H Creatinine 1.2 Est GFR (CKD-EPI)AfAm 50.48 Est GFR (CKD-EPI)NonAf 43.56 Random Glucose 88 Calcium 8.8 Total Bilirubin 0.4 AST 20 ALT 35 Alkaline Phosphatase 67 Troponin I B-Natriuretic Peptide Total Protein 6.7 Albumin 3.2 L TSH 3.73 Urine Color Yellow Urine Appearance Clear Urine pH 7.5 D Ur Specific [place] 1.006 L Urine Protein Negative Urine Glucose (UA) Negative Urine Ketones Negative Urine Blood Negative Urine Nitrite Negative Urine Bilirubin Negative Urine Urobilinogen 0.2 Ur Leukocyte Esterase 1+ H Urine WBC (Auto) 4 Urine RBC (Auto) 0 Urine Casts (Auto) 0 U Epithel Cells (Auto) 1.4 Urine Bacteria (Auto) 45.9 Sinus rhythm with moderate LVH Echo: Report Reviewed Problem List - Problems (1) Heart failure, NYHA class 1 Code(s): I50.9 - HEART FAILURE, UNSPECIFIED (2) HTN (hypertension) Code(s): I10 - ESSENTIAL (PRIMARY) HYPERTENSION Qualifiers: Hypertension type: essential hypertension Qualified Code(s): I10 - Essential (primary) hypertension (3) Hypercholesterolemia Code(s): E78.00 - PURE HYPERCHOLESTEROLEMIA, UNSPECIFIED (4) Hypothyroidism Code(s): E03.9 - HYPOTHYROIDISM, UNSPECIFIED (5) Restless leg syndrome Code(s): G25.81 - RESTLESS LEGS SYNDROME (6) Mitral valve regurgitation Code(s): I34.0 - NONRHEUMATIC MITRAL (VALVE) INSUFFICIENCY Qualifiers: Cardiac valve disease etiology: nonrheumatic Qualified Code(s): I34.0 - Nonrheumatic mitral (valve) insufficiency (7) Tricuspid valve regurgitation Code(s): I07.1 - RHEUMATIC TRICUSPID INSUFFICIENCY Qualifiers: Cardiac valve disease etiology: nonrheumatic Qualified Code(s): I36.1 - Nonrheumatic tricuspid (valve) insufficiency (8) DIAZ (dyspnea on exertion) Code(s): R06.09 - OTHER FORMS OF DYSPNEA Assessment/Plan 1. Shortness of breath with underlying systolic/diastolic LV dysfunction - chronic class 0-1 NYHA classification heart failure 2. HTN 3. Hypercholesterolemia 4. Carotid artery disease 5. Hypothyroidism 6. Organic brain syndrome 7. CKD 8. Restless leg syndrome 9. Mitral valve and tricuspid valve regurgitations PLAN: 1. Diuretics (Furosemide 40 mg IV BID) and monitor renal function and electrolytes 2. Continue Spironolactone 3. Continue Diovan 320 mg QD (home medication included Olmesartan 40 mg QD) 4. Continue ASA 81 mg QD 5. Atorvastatin 20 mg QHS 6. Echocardiography to assess LV/RV and valvular function Further plans are to follow Lewis Downey MD
--- NOTE | 2019-10-26 12:02 | ECHO ---
Name: CAROLINE BELL Exam:Adult Echocardiogram Study Date: 10/26/2019 10:39 AM Age: 79 yrs Reason For Study: CHF EXAC Height: 66 in Weight: 202 lb BSA: 2.0 m2 MMode/2D Measurements & Calculations IVSd: 1.2 cm Ao root diam: 2.9 cm LVIDd: 5.8 cm LA dimension: 4.3 cm LVIDs: 4.5 cm ACS: 1.8 cm LVPWd: 1.0 cm EDV(Teich): 168.0 ml EPSS: 1.2 cm ESV(Teich): 92.0 ml LVOT diam: 2.0 cm LVLd ap4: 7.6 cm EDV(MOD-sp4): 117.0 ml LVLs ap4: 6.6 cm ESV(MOD-sp4): 64.4 ml SV(MOD-sp4): 52.6 ml LAV (MOD-bp): 75.6 ml TAPSE: 1.8 cm RV S Garry: 12.1 cm/sec Doppler Measurements & Calculations MV E max garry: 63.5 cm/sec Ao V2 max: 140.3 cm/sec MV A max garry: 91.7 cm/sec Ao max P.9 mmHg MV E/A: 0.69 Ao V2 mean: 98.3 cm/sec MV dec time: 0.19 sec Ao mean P.3 mmHg Ao V2 VTI: 30.1 cm CHRISTOPHER(I,D): 2.1 cm2 AI P1/2t: 432.1 msec CHRISTOPHER(V,D): 2.1 cm2 AI max garry: 448.6 cm/sec LV V1 max P.8 mmHg AI max P.5 mmHg LV V1 mean P.2 mmHg AI dec slope: 304.1 cm/sec2 LV V1 max: 97.5 cm/sec LV V1 mean: 69.8 cm/sec LV V1 VTI: 21.1 cm MR max garry: 524.4 cm/sec SV(LVOT): 63.8 ml MR max P.1 mmHg TR max garry: 254.8 cm/sec PA V2 max: 93.7 cm/sec TR max P.0 mmHg PA max P.5 mmHg PA acc time: 0.11 sec PI end-d garry: 135.7 cm/sec Med Peak E' Garry: 4.5 cm/sec Med E/e': 14.2 Lat Peak E' Garry: 8.1 cm/sec Lat E/e': 7.9 PA pr(Accel): 31.5 mmHg Pulm Sys Garry: 61.6 cm/sec Pulm Soler Garry: 35.4 cm/sec Pulm S/D: 1.7 Procedure A complete two-dimensional transthoracic echocardiogram was performed (2D, M-mode, Doppler and color flow Doppler). Left Ventricle The left ventricle is normal in size. Left ventricular systolic function is mildly reduced. Ejection Fraction = 45%. E/A reversal consistent with but not diagnostic of poor LV compliance. There is mild global hy pokinesis of the left ventricle. Right Ventricle The right ventricle is normal in size and function. Atria The left atrium is mildly dilated. Right atrial size is normal. Mitral Valve The mitral valve is normal in structure and function. There is moderate mitral regurgitation. The charbel ral regurgitant jet is eccentrically directed. Tricuspid Valve The tricuspid valve is normal in structure and function. There is trace tricuspid regurgitation. Righ t ventricular systolic pressure is 35 mmhg. Aortic Valve There is mild aortic valve thickening. Mild aortic regurgitation. Pulmonic Valve The pulmonic valve is normal in structure and function. Trace pulmonic valvular regurgitation. Great Vessels The aortic root is normal size. Pericardium/Pleura There is no pericardial effusion. There is no pleural effusion. Interpretation Summary The left ventricle is normal in size. There is mild global hypokinesis of the left ventricle. Left ventricular systolic function is mildly reduced. Ejection Fraction = 45%. The left atrium is mildly dilated. The mitral regurgitant jet is eccentrically directed. There is moderate mitral regurgitation. There is trace tricuspid regurgitation. Right ventricular systolic pressure is 35 mmhg. There is mild aortic valve thickening. Mild aortic regurgitation. Trace pulmonic valvular regurgitation. MD Mark Mejias 10/26/2019 12:02 PM
--- NOTE | 2019-10-26 15:40 | PN ---
Teaching Attending Note Name of Resident: Lobo Rhodes ATTENDING PHYSICIAN STATEMENT I saw and evaluated the patient. I reviewed the resident's note and discussed the case with the resident. I agree with the resident's findings and plan as documented. SUBJECTIVE: SOB is better , LE edema is better . cough+. no N/V. OBJECTIVE: NAD,a wake,a lert, cooperative CV: RRR, no MRG Lungs: bibasilar crackles haley R base LE: 1+ pitting edema on LE s . varicose veins . no fungal infection among toes ASSESSMENT AND PLAN: 79 y/o lady with h/o Systolic and diastolic heart failure, HTN, HLP, carotid artery disease, hypothyroidism, CKD, resltess leg syndrome , MR, TR, L breast cancer s/p lumpectomy/Rtx, GERD, colon adenoma, glaucoma, herniated disks, and other medical problems. She presented with SOB and cough and was found to have acute heart failure exacerbation 1- Acute exacerbation of systolic and diastolic heart failure - cont IV lasix BID - cont spironolactone - Add BB when close to euvolemia - Cont ARB - appreciate card input - echo is reviewed. EF 45% - fluid restriction, weight , and I&O 2- h/o HTN: cotn ARB . 3- h/o breast cancer. cont tamoxifen 4- H/o HLP: cont statin. Dispo: HLOC .
[2019-10-26] MEDS ORDERED: ACETAMINOPHEN 325 MG TABLET (FP) ONE (16:28)
--- NOTE | 2019-10-26 19:33 | PN ---
Physical Exam: SUBJECTIVE: Patient seen and examined at bedside. pt states her sob is improving. she notices it mostly when she walks or tries to exert herself OBJECTIVE: Vital Signs Period Temp Pulse Resp BP Sys/Soler Pulse Ox Last 24 Hr 98.0 F-98.3 F 55-88 15-19 116-147/63-73 96-100 GENERAL: The patient is awake, alert, and fully oriented, in no acute distress. HEAD: Normal with no signs of trauma. LUNGS: Breath sounds decreased at bases, no accessory muscle use. HEART: Regular rate and rhythm, S1, S2 without murmur, rub or gallop. ABDOMEN: Soft, nontender, nondistended, normoactive bowel sounds, no guarding EXTREMITIES: 2+ pulses, warm, well-perfused, no edema. SKIN: Warm, dry, normal turgor, no rashes or lesions noted Laboratory Last Values WBC 4.8 K/mm3 (4.0-10.0) 10/26/19 05:30 RBC 3.13 M/mm3 (3.60-5.2) L 10/26/19 05:30 Hgb 10.2 GM/dL (10.7-15.3) L 10/26/19 05:30 Hct 30.5 % (32.4-45.2) L 10/26/19 05:30 MCV 97.7 fl (80-96) H 10/26/19 05:30 MCH 32.5 pg (25.7-33.7) 10/26/19 05:30 MCHC 33.3 g/dl (32.0-36.0) 10/26/19 05:30 RDW 13.2 % (11.6-15.6) 10/26/19 05:30 Plt Count 252 K/MM3 (134-434) 10/26/19 05:30 MPV 8.5 fl (7.5-11.1) 10/26/19 05:30 Absolute Neuts (auto) 2.6 K/mm3 (1.5-8.0) 10/26/19 05:30 Neutrophils % 53.8 % (42.8-82.8) 10/26/19 05:30 Lymphocytes % 28.2 % (8-40) 10/26/19 05:30 Monocytes % 12.7 % (3.8-10.2) H 10/26/19 05:30 Eosinophils % 4.6 % (0-4.5) H 10/26/19 05:30 Basophils % 0.7 % (0-2.0) 10/26/19 05:30 Nucleated RBC % 0 % (0-0) 10/26/19 05:30 PT with INR 11.20 SEC (9.7-13.0) 10/25/19 19:50 INR 0.95 (0.83-1.09) 10/25/19 19:50 PTT (Actin FS) 19.5 SECONDS (25.2-36.5) L 10/25/19 19:50 VBG pH Cancelled 10/25/19 19:50 POC VBG pCO2 Cancelled 10/25/19 19:50 POC VBG pO2 Cancelled 10/25/19 19:50 VBG HCO3 Cancelled 10/25/19 19:50 VBG O2 Sat (Antoni) Cancelled 10/25/19 19:50 VBG Base Excess Cancelled 10/25/19 19:50 Sodium 141 mmol/L (136-145) 10/26/19 05:30 Potassium 4.2 mmol/L (3.5-5.1) 10/26/19 05:30 Chloride 106 mmol/L (98-107) 10/26/19 05:30 Carbon Dioxide 30 mmol/L (21-32) 10/26/19 05:30 Anion Gap 5 MMOL/L (8-16) L 10/26/19 05:30 BUN 18.2 mg/dL (7-18) H 10/26/19 05:30 Creatinine 1.2 mg/dL (0.55-1.3) 10/26/19 05:30 Est GFR (CKD-EPI)AfAm 50.48 10/26/19 05:30 Est GFR (CKD-EPI)NonAf 43.56 10/26/19 05:30 Random Glucose 88 mg/dL (74-106) 10/26/19 05:30 Calcium 8.8 mg/dL (8.5-10.1) 10/26/19 05:30 Total Bilirubin 0.4 mg/dL (0.2-1) 10/26/19 05:30 AST 20 U/L (15-37) 10/26/19 05:30 ALT 35 U/L (13-61) 10/26/19 05:30 Alkaline Phosphatase 67 U/L (45-117) 10/26/19 05:30 Troponin I 0.03 ng/ml (0.00-0.05) 10/25/19 19:50 B-Natriuretic Peptide 1491.7 pg/ml (5-450) H 10/25/19 19:50 Total Protein 6.7 g/dl (6.4-8.2) 10/26/19 05:30 Albumin 3.2 g/dl (3.4-5.0) L 10/26/19 05:30 TSH 3.73 uIU/ml (0.358-3.74) 10/26/19 05:30 Urine Color Yellow 10/26/19 09:40 Urine Appearance Clear 10/26/19 09:40 Urine pH 7.5 (5.0-8.0) D 10/26/19 09:40 Ur Specific [place] 1.006 (1.010-1.035) L 10/26/19 09:40 Urine Protein Negative (NEGATIVE) 10/26/19 09:40 Urine Glucose (UA) Negative (NEGATIVE) 10/26/19 09:40 Urine Ketones Negative (NEGATIVE) 10/26/19 09:40 Urine Blood Negative (NEGATIVE) 10/26/19 09:40 Urine Nitrite Negative (NEGATIVE) 10/26/19 09:40 Urine Bilirubin Negative (NEGATIVE) 10/26/19 09:40 Urine Urobilinogen 0.2 mg/dL (0.2-1.0) 10/26/19 09:40 Ur Leukocyte Esterase 1+ (NEGATIVE) H 10/26/19 09:40 Urine WBC (Auto) 4 /hpf (0-5) 10/26/19 09:40 Urine RBC (Auto) 0 /hpf (0-4) 10/26/19 09:40 Urine Casts (Auto) 0 /lpf (0-8) 10/26/19 09:40 U Epithel Cells (Auto) 1.4 /HPF (0-5/HPF) 10/26/19 09:40 Urine Bacteria (Auto) 45.9 /hpf (NEGATIVE) 10/26/19 09:40 Current Medications Acetaminophen (Tylenol -) 650 mg PO Q6H PRN PRN Reason: PAIN OR FEVER Aspirin (Ecotrin -) 81 mg PO DAILY [facility] Last Admin: 10/26/19 09:25 Dose: 81 mg Atorvastatin Calcium (Lipitor -) 20 mg PO HS [facility] Donepezil HCl (Aricept -) 10 mg PO HS [facility] Furosemide (Lasix Injection -) 40 mg IVPUSH BIDLASIX [facility] Last Admin: 10/26/19 13:03 Dose: 40 mg Heparin Sodium (Porcine) (Heparin -) 5,000 unit SQ TID [facility] Last Admin: 10/26/19 13:03 Dose: 5,000 unit Latanoprost (Xalatan 0.005% Eye Drops -) 1 drop OU HS [facility] Levothyroxine Sodium (Synthroid -) 75 mcg PO DAILY@0700 [facility] Last Admin: 10/26/19 06:12 Dose: 75 mcg Memantine (Namenda -) 5 mg PO BID [facility] Last Admin: 10/26/19 09:25 Dose: 5 mg Non-Formulary Medication (Pramipexole Di-Hcl [Pramipexole Er]) 0.375 mg PO AM [facility] Non-Formulary Medication (Pramipexole Di-Hcl [Pramipexole Er]) 0.75 mg PO HS [facility] Pantoprazole Sodium (Protonix -) 40 mg PO DAILY [facility] Last Admin: 10/26/19 09:25 Dose: 40 mg Spironolactone (Aldactone -) 25 mg PO DAILY [facility] Last Admin: 10/26/19 09:24 Dose: 25 mg Tamoxifen Citrate (Tamoxifen Citrate) 20 mg PO DAILY [facility] Last Admin: 10/26/19 09:25 Dose: 20 mg Valsartan (Diovan -) 320 mg PO DAILY [facility] Last Admin: 10/26/19 09:24 Dose: 320 mg ASSESSMENT/PLAN: 79 yo. F PMH HTN, HLD, hypothyroidism, iron def anemia, dementia, left breast CA (s/p RT & lumpectomy in 2013), GERD, restless leg syndrome, glaucoma, colon adenomas presenting from PCP office for dyspnea Acute on chronic HFrEF -BMP elevated although downtrending since 10/22 -CXR showing better inspiration, decr lung markings since 10/22 study -c/w IV Lasix 40 mg BID -monitor Is & Os strict,daily weights -Echo : 45% -fluid restriction HTN -continue home meds: asa, olesartan -c/w spironolactone -EKG: NSR, LVH, no ST changes. prolonged [place] 200 -trop negative HLD -continue home atorvastatin 20mg daily -low fat diet GERD -continue ppi RLS -continue pramipexole, 0.375mg AM/ 0.75mg HS hypothyroidism -continue synthroid 75mcg daily Dementia -continue memantine, donepezil Glaucoma -continue latanoprost drops HS PPX: hep Dispo:telemetry Visit type - Emergency Visit Emergency Visit: No - New Patient This patient is new to me today: Yes Date on this admission: 10/26/19 - Critical Care Critical Care patient: No - Discharge Referral Referred to [facility] Med P.C.: No ATTENDING PHYSICIAN STATEMENT I saw and evaluated the patient. I reviewed the resident's note and discussed the case with the resident. I agree with the resident's findings and plan as documented. SUBJECTIVE: OBJECTIVE: ASSESSMENT AND PLAN:
[2019-10-26] MEDS ORDERED: PATIENT'S OWN MEDICATION (NON-FORMULARY) (Pramipexole Di-Hcl [Pramipexole Er] 0.75 MG) PO SCH (22:00)
[2019-10-26] MEDS: ATORVASTATIN CA 20 MG TABLET (FP) PO SCH (22:42)
[2019-10-26] MEDS: LATANOPROST 0.005% OPHTH SOLN 2.5ML BOTTLE OU SCH (22:43)
[2019-10-26] MEDS: DONEPEZIL HCL 10 MG TABLET (FP) PO SCH (22:43)
[2019-10-27 00:32] VITALS: BMI 32.1
[2019-10-27] MEDS: FUROSEMIDE 40 MG/4 ML INJECTABLE VIAL IVPUSH SCH (06:37)
[2019-10-27] MEDS: HEPARIN NA (PORCINE) 5,000 UNITS/ML 1ML VIAL SQ SCH ×3 (06:37→21:44)
[2019-10-27] MEDS ORDERED: POLYETHYLENE GLYCOL 3350 119 GM BTL PO ONE (08:02)
--- NOTE | 2019-10-27 08:06 | PN ---
Physical Exam: SUBJECTIVE: Patient seen and examined at bedside. she states her wheezes are much improved. she states that she feels a little constipated and requesting miralax. OBJECTIVE: Vital Signs Period Temp Pulse Resp BP Sys/Soler Pulse Ox Last 24 Hr 98 F-98.3 F 61-88 16-20 111-140/45-73 98-100 GENERAL: The patient is awake, alert, and fully oriented, in no acute distress. LUNGS:bi basilar crackles, good air entry b/l, no accessory muscle use. HEART: Regular rate and rhythm, S1, S2 without murmur, rub or gallop. ABDOMEN: Soft, nontender, nondistended, normoactive bowel sounds, no guarding EXTREMITIES: 2+ pulses, warm, well-perfused, trace LE edema. PSYCH: Normal mood, normal affect. SKIN: Warm, dry, normal turgor, no rashes or lesions noted Laboratory Results - last 24 hr 10/26/19 09:40 Urine Color Yellow Urine Appearance Clear Urine pH 7.5 D Ur Specific [place] 1.006 L Urine Protein Negative Urine Glucose (UA) Negative Urine Ketones Negative Urine Blood Negative Urine Nitrite Negative Urine Bilirubin Negative Urine Urobilinogen 0.2 Ur Leukocyte Esterase 1+ H Urine WBC (Auto) 4 Urine RBC (Auto) 0 Urine Casts (Auto) 0 U Epithel Cells (Auto) 1.4 Urine Bacteria (Auto) 45.9 Current Medications Acetaminophen (Tylenol -) 650 mg PO Q6H PRN PRN Reason: PAIN OR FEVER Aspirin (Ecotrin -) 81 mg PO DAILY [facility] Last Admin: 10/26/19 09:25 Dose: 81 mg Atorvastatin Calcium (Lipitor -) 20 mg PO [facility] Last Admin: 10/26/19 22:42 Dose: 20 mg Donepezil HCl (Aricept -) 10 mg PO HS [facility] Last Admin: 10/26/19 22:43 Dose: 10 mg Furosemide (Lasix Injection -) 40 mg IVPUSH BIDLASIX [facility] Last Admin: 10/27/19 06:37 Dose: 40 mg Heparin Sodium (Porcine) (Heparin -) 5,000 unit SQ TID [facility] Last Admin: 10/27/19 06:37 Dose: 5,000 unit Latanoprost (Xalatan 0.005% Eye Drops -) 1 drop OU [facility] Last Admin: 10/26/19 22:43 Dose: Not Given Levothyroxine Sodium (Synthroid -) 75 mcg PO DAILY@0700 [facility] Last Admin: 10/26/19 06:12 Dose: 75 mcg Memantine (Namenda -) 5 mg PO BID [facility] Last Admin: 10/26/19 22:42 Dose: 5 mg Pantoprazole Sodium (Protonix -) 40 mg PO DAILY [facility] Last Admin: 10/26/19 09:25 Dose: 40 mg Pneumococcal 13-Valent Conj Vacc (Prevnar 13 Syringe -) 0.5 ml IM .ONCE ONE Stop: 10/27/19 00:33 Polyethylene Glycol (Miralax (For Daily Use) -) 17 gm PO ONCE ONE Stop: 10/27/19 08:03 Pramipexole Dihydrochloride (Mirapex -) 0.375 mg PO AM [facility] Pramipexole Dihydrochloride (Mirapex -) 0.75 mg PO HS [facility] Spironolactone (Aldactone -) 25 mg PO DAILY [facility] Last Admin: 10/26/19 09:24 Dose: 25 mg Tamoxifen Citrate (Tamoxifen Citrate) 20 mg PO DAILY [facility] Last Admin: 10/26/19 09:25 Dose: 20 mg Valsartan (Diovan -) 320 mg PO DAILY [facility] Last Admin: 10/26/19 09:24 Dose: 320 mg ASSESSMENT/PLAN: 79 yo. F PMH HTN, HLD, hypothyroidism, iron def anemia, dementia, left breast CA (s/p RT & lumpectomy in 2013), GERD, restless leg syndrome, glaucoma, colon adenomas presenting from PCP office for dyspnea Acute on chronic HFrEF -BMP elevated although downtrending since 10/22 -CXR showing better inspiration, decr lung markings since 10/22 study -decrease IV Lasix 40 mg daily , 20 mg tonight -monitor Is & Os strict,daily weights -Echo : 45% -fluid restriction - Cardio recs appreciated HTN -cont valsartan -c/w spironolactone -EKG: NSR, LVH, no ST changes. prolonged [place] 200 -trop negative HLD -continue home atorvastatin 20mg daily -low fat diet GERD -continue ppi RLS -continue pramipexole, 0.375mg AM/ 0.75mg HS hypothyroidism -continue synthroid 75mcg daily Dementia -continue memantine, donepezil Glaucoma -continue latanoprost drops HS PPX: hep Dispo:telemetry Visit type - Emergency Visit Emergency Visit: No - New Patient This patient is new to me today: No - Critical Care Critical Care patient: No - Discharge Referral Referred to [facility] Med P.C.: No ATTENDING PHYSICIAN STATEMENT I saw and evaluated the patient. I reviewed the resident's note and discussed the case with the resident. I agree with the resident's findings and plan as documented. SUBJECTIVE: OBJECTIVE: ASSESSMENT AND PLAN:
--- NOTE | 2019-10-27 09:02 | PN ---
<Char Arnold - Last Filed: 10/27/19 10:45> Teaching Attending Note ATTENDING PHYSICIAN STATEMENT I saw and evaluated the patient. I reviewed the resident's note and discussed the case with the resident. I agree with the resident's findings and plan as documented. SUBJECTIVE: OBJECTIVE: ASSESSMENT AND PLAN: <Serg Wilson - Last Filed: 10/29/19 15:23> Teaching Attending Note Name of Resident: Char Arnold ATTENDING PHYSICIAN STATEMENT I saw and evaluated the patient. I reviewed the resident's note and discussed the case with the resident. I agree with the resident's findings and plan as documented. SUBJECTIVE: Patient is comfortable with no acute distress, feels better Vital Signs Temperature 98.2 F 10/27/19 02:00 Pulse Rate 72 10/27/19 06:00 Respiratory Rate 18 10/27/19 06:00 Blood Pressure 129/71 10/27/19 06:00 O2 Sat by Pulse Oximetry (%) 99 10/27/19 00:21 GENERAL: The patient is awake, alert, and fully oriented, in no acute distress. HEAD: Normal with no signs of trauma. EYES: PERRL, extraocular movements intact, sclera anicteric, conjunctiva clear. ENT: Ears normal, oropharynx clear without exudates, moist mucous membranes. NECK: Trachea midline, full range of motion, supple. LUNGS: decreased Breath sounds equal, clear to auscultation bilaterally, no wheezes, no crackles, no accessory muscle use. HEART: Regular rate and rhythm, S1, S2 without murmur, rub or gallop. ABDOMEN: Soft, nontender, nondistended, normoactive bowel sounds, no guarding, no rebound, no hepatosplenomegaly, no masses. EXTREMITIES: 2+ pulses, warm, well-perfused, no edema. NEUROLOGICAL: Cranial nerves II through XII grossly intact. Normal speech, gait not observed. PSYCH: Normal mood, normal affect. SKIN: Warm, dry, normal turgor, no rashes or lesions noted CBCD WBC 4.8 K/mm3 (4.0-10.0) 10/26/19 05:30 RBC 3.13 M/mm3 (3.60-5.2) L 10/26/19 05:30 Hgb 10.2 GM/dL (10.7-15.3) L 10/26/19 05:30 Hct 30.5 % (32.4-45.2) L 10/26/19 05:30 MCV 97.7 fl (80-96) H 10/26/19 05:30 MCHC 33.3 g/dl (32.0-36.0) 10/26/19 05:30 RDW 13.2 % (11.6-15.6) 10/26/19 05:30 Plt Count 252 K/MM3 (134-434) 10/26/19 05:30 MPV 8.5 fl (7.5-11.1) 10/26/19 05:30 CMP Sodium 141 mmol/L (136-145) 10/26/19 05:30 Potassium 4.2 mmol/L (3.5-5.1) 10/26/19 05:30 Chloride 106 mmol/L (98-107) 10/26/19 05:30 Carbon Dioxide 30 mmol/L (21-32) 10/26/19 05:30 Anion Gap 5 MMOL/L (8-16) L 10/26/19 05:30 BUN 18.2 mg/dL (7-18) H 10/26/19 05:30 Creatinine 1.2 mg/dL (0.55-1.3) 10/26/19 05:30 Random Glucose 88 mg/dL (74-106) 10/26/19 05:30 Calcium 8.8 mg/dL (8.5-10.1) 10/26/19 05:30 Total Bilirubin 0.4 mg/dL (0.2-1) 10/26/19 05:30 AST 20 U/L (15-37) 10/26/19 05:30 ALT 35 U/L (13-61) 10/26/19 05:30 Alkaline Phosphatase 67 U/L (45-117) 10/26/19 05:30 Total Protein 6.7 g/dl (6.4-8.2) 10/26/19 05:30 Albumin 3.2 g/dl (3.4-5.0) L 10/26/19 05:30 CARDIAC ENZYMES Troponin I 0.03 ng/ml (0.00-0.05) 10/25/19 19:50 Current Medications Generic Name Dose Route Start Last Admin Trade Name Freq PRN Reason Stop Dose Admin Acetaminophen 650 mg 10/26/19 01:24 Tylenol - PO Q6H PRN PAIN OR FEVER Aspirin 81 mg 10/26/19 10:00 10/26/19 09:25 Ecotrin - PO 81 mg DAILY [facility] Administration Atorvastatin Calcium 20 mg 10/26/19 22:00 10/26/19 22:42 Lipitor - PO 20 mg HS [facility] Administration Donepezil HCl 10 mg 10/26/19 22:00 10/26/19 22:43 Aricept - PO 10 mg HS [facility] Administration Furosemide 40 mg 10/26/19 08:00 10/27/19 06:37 Lasix Injection - IVPUSH 40 mg BIDLASIX [facility] Administration Heparin Sodium (Porcine) 5,000 unit 10/26/19 06:00 10/27/19 06:37 Heparin - SQ 5,000 unit TID [facility] Administration Latanoprost 1 drop 10/26/19 22:00 10/26/19 22:43 Xalatan 0.005% Eye Drops - OU Not Given HS [facility] Levothyroxine Sodium 75 mcg 10/26/19 07:00 10/26/19 06:12 Synthroid - PO 75 mcg DAILY@0700 [facility] Administration Memantine 5 mg 10/26/19 10:00 10/26/19 22:42 Namenda - PO 5 mg BID [facility] Administration Pantoprazole Sodium 40 mg 10/26/19 10:00 10/26/19 09:25 Protonix - PO 40 mg DAILY [facility] Administration Pneumococcal 13-Valent Conj Vacc 0.5 ml 10/27/19 00:32 Prevnar 13 Syringe - IM 10/27/19 00:33 .ONCE ONE Pramipexole Dihydrochloride 0.375 mg 10/28/19 07:00 Mirapex - PO AM [facility] Pramipexole Dihydrochloride 0.75 mg 10/27/19 22:00 Mirapex - PO HS [facility] Spironolactone 25 mg 10/26/19 10:00 10/26/19 09:24 Aldactone - PO 25 mg DAILY [facility] Administration Tamoxifen Citrate 20 mg 10/26/19 10:00 10/26/19 09:25 Tamoxifen Citrate PO 20 mg DAILY [facility] Administration Valsartan 320 mg 10/26/19 10:00 10/26/19 09:24 Diovan - PO 320 mg DAILY [facility] Administration Home Medications Medication Instructions Recorded Atorvastatin Ca [Lipitor] 20 mg PO HS 01/03/14 Levothyroxine [Synthroid -] 75 mcg PO DAILY 01/03/14 Aspirin Coated [Ecotrin -] 81 mg PO DAILY #0 01/04/14 Pantoprazole Sodium 40 mg PO DAILY #90 tablet. 02/06/18 Tamoxifen Citrate 20 mg PO DAILY 02/06/18 Latanoprost 0.005% Eye Drops 1 drop OU HS 05/03/19 [Xalatan 0.005% Eye Drops -] Memantine HCl [Namenda -] 5 mg PO BID 05/03/19 Acetaminophen [Tylenol .Regular 650 mg PO Q6H PRN tablet 05/06/19 Strength -] Pramipexole Di-HCl [Pramipexole ER] 0.375 mg PO AM 30 Days #30 05/06/19 tab.er.24h Pramipexole Di-HCl [Pramipexole ER] 0.75 mg PO HS 30 Days #30 05/06/19 tab.er.24h Donepezil HCl [Aricept -] 10 mg PO DAILY 10/22/19 Olmesartan Medoxomil 40 mg PO DAILY 10/22/19 Furosemide [Lasix -] 40 mg PO DAILY 10/26/19 Assessment and Plan: 79 y/o lady with h/o Systolic and diastolic heart failure, HTN, HLP, carotid artery disease, hypothyroidism, CKD, resltess leg syndrome , MR, TR, L breast cancer s/p lumpectomy/Rtx, GERD, colon adenoma, glaucoma, herniated disks, and other medical problems. She presented with SOB and cough and was found to have acute heart failure exacerbation # Acute exacerbation of systolic and diastolic heart failure - cont IV lasix BID - cont spironolactone - Add BB when close to euvolemia - Cont ARB - appreciate card input - echo is reviewed. EF 45% - fluid restriction, weight , and I&O # h/o HTN: cotn ARB . # h/o breast cancer. cont tamoxifen # H/o HLP: cont statin. Dispo: [facility]LOC .
[2019-10-27 10:00] LABS: BLOOD UREA NITROGEN 22.6 mg/dL (7-18); CALCIUM 9.1 mg/dL (8.5-10.1); CREATININE 1.4 mg/dL (0.55-1.3); POTASSIUM 3.6 mmol/L (3.5-5.1)
[2019-10-27] MEDS ORDERED: PT OWN MED DRAWER 7, Y5N ONE (10:04)
[2019-10-27] MEDS: LEVOTHYROXINE NA 75 MCG TABLET (FP) PO SCH (10:09)
[2019-10-27] MEDS ORDERED: PNEUMOC 13-VAL CONJ-DIP CRM/PF 0.5 ML DISP.SYRIN IM ONE (10:30)
[2019-10-27] MEDS: ACETAMINOPHEN 325 MG TABLET (FP) PO PRN ×2 (11:38→21:39)
[2019-10-27] MEDS: ASPIRIN COATED 81 MG TABLET.EC PO SCH (11:40)
[2019-10-27] MEDS: VALSARTAN 160 MG TABLET (UD) PO SCH (11:40)
[2019-10-27] MEDS: SPIRONOLACTONE 25 MG TABLET (FP) PO SCH (11:41)
[2019-10-27] MEDS: MEMANTINE HCL 5 MG TABLET (UD) PO SCH ×2 (11:41→21:39)
[2019-10-27] MEDS: PANTOPRAZOLE 40 MG TABLET PO SCH (11:41)
[2019-10-27] MEDS: TAMOXIFEN CITRATE 10 MG TABLET PO SCH (11:42)
--- NOTE | 2019-10-27 12:26 | PN ---
Progress Note, Physician History of Present Illness: DIAZ and LE edema improving with diuresis. - Current Medication List Current Medications: Active Medications Acetaminophen (Tylenol -) 650 mg PO Q6H PRN PRN Reason: PAIN OR FEVER Last Admin: 10/27/19 11:38 Dose: 650 mg Aspirin (Ecotrin -) 81 mg PO DAILY [facility] Last Admin: 10/27/19 11:40 Dose: 81 mg Atorvastatin Calcium (Lipitor -) 20 mg PO HS [facility] Last Admin: 10/26/19 22:42 Dose: 20 mg Donepezil HCl (Aricept -) 10 mg PO HS [facility] Last Admin: 10/26/19 22:43 Dose: 10 mg Furosemide (Lasix Injection -) 40 mg IVPUSH DAILY [facility] Furosemide (Lasix Injection -) 20 mg IVPUSH ONCE ONE Stop: 10/27/19 18:01 Heparin Sodium (Porcine) (Heparin -) 5,000 unit SQ TID [facility] Last Admin: 10/27/19 06:37 Dose: 5,000 unit Latanoprost (Xalatan 0.005% Eye Drops -) 1 drop OU HS [facility] Last Admin: 10/26/19 22:43 Dose: Not Given Levothyroxine Sodium (Synthroid -) 75 mcg PO DAILY@0700 [facility] Last Admin: 10/27/19 10:09 Dose: 75 mcg Memantine (Namenda -) 5 mg PO BID [facility] Last Admin: 10/27/19 11:41 Dose: 5 mg Pantoprazole Sodium (Protonix -) 40 mg PO DAILY [facility] Last Admin: 10/27/19 11:41 Dose: 40 mg Pramipexole Dihydrochloride (Mirapex -) 0.375 mg PO AM [facility] Pramipexole Dihydrochloride (Mirapex -) 0.75 mg PO HS [facility] Spironolactone (Aldactone -) 25 mg PO DAILY [facility] Last Admin: 10/27/19 11:41 Dose: 25 mg Tamoxifen Citrate (Tamoxifen Citrate) 20 mg PO DAILY [facility] Last Admin: 10/27/19 11:42 Dose: 20 mg Valsartan (Diovan -) 320 mg PO DAILY [facility] Last Admin: 10/27/19 11:40 Dose: 320 mg - Objective Vital Signs: Vital Signs Temperature 97.6 F 10/27/19 10:00 Pulse Rate 96 H 02/26/20 10:00 Respiratory Rate 18 10/27/19 10:00 Blood Pressure 119/73 10/27/19 10:00 O2 Sat by Pulse Oximetry (%) 99 10/27/19 00:21 Constitutional: Yes: No Distress, Calm Neck: Yes: Supple Cardiovascular: Yes: Regular Rate and Rhythm, Murmur (2/6 SM) Respiratory: Yes: Regular, Diminished Gastrointestinal: Yes: Normal Bowel Sounds, Soft Edema: Yes Edema: LLE: Trace, RLE: Trace Labs: CBC, BMP 10/26/19 05:30 10/27/19 08:25 INR, PTT INR 0.95 (0.83-1.09) 10/25/19 19:50 - ....Imaging EKG: Report Reviewed (Tele: NSR) Problem List - Problems (1) Acute on chronic diastolic heart failure Code(s): I50.33 - ACUTE ON CHRONIC DIASTOLIC (CONGESTIVE) HEART FAILURE (2) DIAZ (dyspnea on exertion) Code(s): R06.09 - OTHER FORMS OF DYSPNEA (3) HTN (hypertension) Code(s): I10 - ESSENTIAL (PRIMARY) HYPERTENSION Qualifiers: Hypertension type: essential hypertension Qualified Code(s): I10 - Essential (primary) hypertension (4) Hypercholesterolemia Code(s): E78.00 - PURE HYPERCHOLESTEROLEMIA, UNSPECIFIED (5) Hypothyroidism Code(s): E03.9 - HYPOTHYROIDISM, UNSPECIFIED (6) Acute kidney injury superimposed on CKD Code(s): N17.9 - ACUTE KIDNEY FAILURE, UNSPECIFIED; N18.9 - CHRONIC KIDNEY DISEASE, UNSPECIFIED Assessment/Plan 10/26/2019 Echocardiography: Normal LV size with mild decreased LVEF 45%, mild LAE, mod MR, tr TR RVSP 35 mm Hg, mild AR, tr ND 1. Acute on chronic LV systolic/diastolic heart failure improving 2. HTN 3. Hypercholesterolemia 4. Carotid artery disease 5. Hypothyroidism 6. Organic brain syndrome 7. Acute on CKD 8. Restless leg syndrome 9. Mitral valve and tricuspid valve regurgitations PLAN: 1. Agree with decrease Furosemide 40 mg IV QD with monitor diuretic response, renal function and electrolytes 2. Continue Spironolactone 25 qd, ASA 81 mg QD, Atorvastatin 20 mg QHS 3. Continue Diovan 320 mg QD (home medication included Olmesartan 40 mg QD)
[2019-10-27] MEDS ORDERED: INSULIN (NOVOLOG) ASPART 100 UNITS/ML 10ML VIAL ONE (14:54)
[2019-10-27] MEDS ORDERED: FUROSEMIDE 40 MG/4 ML INJECTABLE VIAL IVPUSH ONE (18:00)
[2019-10-27] MEDS: PRAMIPEXOLE DIHYDROCHLORIDE 0.25 MG TABLET PO SCH (21:39)
[2019-10-27] MEDS: ATORVASTATIN CA 20 MG TABLET (FP) PO SCH (21:40)
[2019-10-27] MEDS: DONEPEZIL HCL 10 MG TABLET (FP) PO SCH (21:40)
[2019-10-27] MEDS: LATANOPROST 0.005% OPHTH SOLN 2.5ML BOTTLE OU SCH (21:51)
[2019-10-28] MEDS: HEPARIN NA (PORCINE) 5,000 UNITS/ML 1ML VIAL SQ SCH ×3 (06:50→22:45)
[2019-10-28] MEDS: LEVOTHYROXINE NA 75 MCG TABLET (FP) PO SCH (06:50)
[2019-10-28 07:13] LABS: HEMATOCRIT 33.5 % (32.4-45.2); HEMOGLOBIN 10.8 GM/dL (10.7-15.3); MCHC 32.3 g/dl (32.0-36.0); MEAN PLT VOLUME 8.8 fl (7.5-11.1); PLATELET COUNT 270 K/MM3 (134-434); RBC 3.38 M/mm3 (3.60-5.2); WHITE BLOOD COUNT 5.9 K/mm3 (4.0-10.0)
[2019-10-28 08:09] LABS: BLOOD UREA NITROGEN 25.3 mg/dL (7-18); CALCIUM 9.1 mg/dL (8.5-10.1); CREATININE 1.3 mg/dL (0.55-1.3); MAGNESIUM 2.3 mg/dL (1.8-2.4); POTASSIUM 4.2 mmol/L (3.5-5.1)
[2019-10-28] MEDS ORDERED: PT OWN MED DRAWER 7, Y5N ONE ×2 (08:28→21:44)
[2019-10-28] MEDS: PRAMIPEXOLE DIHYDROCHLORIDE 0.125 MG TABLET PO SCH (08:43)
[2019-10-28] MEDS ORDERED: FUROSEMIDE 40 MG/4 ML INJECTABLE VIAL IVPUSH SCH (10:00)
[2019-10-28] MEDS: PANTOPRAZOLE 40 MG TABLET PO SCH (10:23)
[2019-10-28] MEDS: ASPIRIN COATED 81 MG TABLET.EC PO SCH (10:23)
[2019-10-28] MEDS: MEMANTINE HCL 5 MG TABLET (UD) PO SCH ×2 (10:23→22:45)
[2019-10-28] MEDS: SPIRONOLACTONE 25 MG TABLET (FP) PO SCH (10:23)
[2019-10-28] MEDS: VALSARTAN 160 MG TABLET (UD) PO SCH (10:23)
[2019-10-28] MEDS: TAMOXIFEN CITRATE 10 MG TABLET PO SCH (10:24)
--- NOTE | 2019-10-28 10:25 | PN ---
Progress Note, Physician History of Present Illness: DIAZ and LE edema improving with diuresis. - Current Medication List Current Medications: Active Medications Acetaminophen (Tylenol -) 650 mg PO Q6H PRN PRN Reason: PAIN OR FEVER Last Admin: 10/27/19 21:39 Dose: 650 mg Aspirin (Ecotrin -) 81 mg PO DAILY [facility] Last Admin: 10/27/19 11:40 Dose: 81 mg Atorvastatin Calcium (Lipitor -) 20 mg PO HS [facility] Last Admin: 10/27/19 21:40 Dose: 20 mg Donepezil HCl (Aricept -) 10 mg PO HS [facility] Last Admin: 10/27/19 21:40 Dose: 10 mg Furosemide (Lasix Injection -) 40 mg IVPUSH DAILY [facility] Heparin Sodium (Porcine) (Heparin -) 5,000 unit SQ TID [facility] Last Admin: 10/28/19 06:50 Dose: 5,000 unit Latanoprost (Xalatan 0.005% Eye Drops -) 1 drop OU HS [facility] Last Admin: 10/27/19 21:51 Dose: 1 drop Levothyroxine Sodium (Synthroid -) 75 mcg PO DAILY@0700 [facility] Last Admin: 10/28/19 06:50 Dose: 75 mcg Memantine (Namenda -) 5 mg PO BID [facility] Last Admin: 10/27/19 21:39 Dose: 5 mg Pantoprazole Sodium (Protonix -) 40 mg PO DAILY [facility] Last Admin: 10/27/19 11:41 Dose: 40 mg Pramipexole Dihydrochloride (Mirapex -) 0.375 mg PO AM [facility] Last Admin: 10/28/19 08:43 Dose: 0.375 mg Pramipexole Dihydrochloride (Mirapex -) 0.75 mg PO HS [facility] Last Admin: 10/27/19 21:39 Dose: 0.75 mg Spironolactone (Aldactone -) 25 mg PO DAILY [facility] Last Admin: 10/27/19 11:41 Dose: 25 mg Tamoxifen Citrate (Tamoxifen Citrate) 20 mg PO DAILY [facility] Last Admin: 10/27/19 11:42 Dose: 20 mg Valsartan (Diovan -) 320 mg PO DAILY [facility] Last Admin: 10/27/19 11:40 Dose: 320 mg - Objective Vital Signs: Vital Signs Temperature 98.2 F 10/28/19 01:00 Pulse Rate 76 10/28/19 05:00 Respiratory Rate 20 10/28/19 05:00 Blood Pressure 137/63 10/28/19 05:00 O2 Sat by Pulse Oximetry (%) 98 10/27/19 21:00 Constitutional: Yes: No Distress, Calm Neck: Yes: Supple Cardiovascular: Yes: Regular Rate and Rhythm Respiratory: Yes: Regular, CTA Bilaterally Gastrointestinal: Yes: Normal Bowel Sounds, Soft Edema: Yes Edema: LLE: Trace, RLE: Trace Labs: CBC, BMP 10/28/19 06:00 10/28/19 06:00 INR, PTT INR 0.95 (0.83-1.09) 10/25/19 19:50 - ....Imaging Chest X-ray: Report Reviewed (NAD) Problem List - Problems (1) Acute on chronic diastolic heart failure Code(s): I50.33 - ACUTE ON CHRONIC DIASTOLIC (CONGESTIVE) HEART FAILURE (2) DIAZ (dyspnea on exertion) Code(s): R06.09 - OTHER FORMS OF DYSPNEA (3) HTN (hypertension) Code(s): I10 - ESSENTIAL (PRIMARY) HYPERTENSION Qualifiers: Hypertension type: essential hypertension Qualified Code(s): I10 - Essential (primary) hypertension (4) Hypercholesterolemia Code(s): E78.00 - PURE HYPERCHOLESTEROLEMIA, UNSPECIFIED (5) Hypothyroidism Code(s): E03.9 - HYPOTHYROIDISM, UNSPECIFIED (6) Acute kidney injury superimposed on CKD Code(s): N17.9 - ACUTE KIDNEY FAILURE, UNSPECIFIED; N18.9 - CHRONIC KIDNEY DISEASE, UNSPECIFIED Assessment/Plan 10/26/2019 Echocardiography: Normal LV size with mild decreased LVEF 45%, mild LAE, mod MR, tr TR RVSP 35 mm Hg, mild AR, tr [place] 1. Acute on chronic LV systolic/diastolic heart failure improving 2. HTN 3. Hypercholesterolemia 4. Carotid artery disease 5. Hypothyroidism 6. Organic brain syndrome 7. Acute on CKD improving 8. Restless leg syndrome 9. Mitral valve and tricuspid valve regurgitations PLAN: 1. Resume Furosemide 40 mg po QD with monitor diuretic response,renal function and electrolytes 2. Continue Spironolactone 25 qd, ASA 81 mg QD, Atorvastatin 20 mg QHS 3. Continue Diovan 320 mg QD (home medication included Olmesartan 40 mg QD) 4. D/c planning with f/u in office
--- NOTE | 2019-10-28 13:59 | PN ---
Physical Exam: SUBJECTIVE: Patient seen and examined at bedside. pt states that her SOB and edema has improved. she denies cp or palpitations. OBJECTIVE: Vital Signs Period Temp Pulse Resp BP Sys/Soler Pulse Ox Last 24 Hr 97.9 F-98.8 F 60-83 18-20 121-142/51-72 98-98 GENERAL: The patient is awake, alert, and fully oriented, in no acute distress. LUNGS: Breath sounds equal, clear to auscultation bilaterally, no accessory muscle use. HEART: Regular rate and rhythm, S1, S2 ABDOMEN: Soft, nontender, nondistended, normoactive bowel sounds, no guarding EXTREMITIES: 2+ pulses, warm, well-perfused, no edema. NEUROLOGICAL: Cranial nerves II through XII grossly intact. Normal speech PSYCH: Normal mood, normal affect. SKIN: Warm, dry, normal turgor, no rashes or lesions noted Laboratory Results - last 24 hr 10/28/19 10/28/19 06:00 06:00 WBC 5.9 RBC 3.38 L Hgb 10.8 Hct 33.5 MCV 99.0 H MCH 32.0 MCHC 32.3 RDW 13.0 Plt Count 270 MPV 8.8 Sodium 141 Potassium 4.2 Chloride 105 Carbon Dioxide 27 Anion Gap 8 BUN 25.3 H Creatinine 1.3 Est GFR (CKD-EPI)AfAm 45.83 Est GFR (CKD-EPI)NonAf 39.54 Random Glucose 81 Calcium 9.1 Phosphorus 4.0 Magnesium 2.3 Current Medications Acetaminophen (Tylenol -) 650 mg PO Q6H PRN PRN Reason: PAIN OR FEVER Last Admin: 10/27/19 21:39 Dose: 650 mg Aspirin (Ecotrin -) 81 mg PO DAILY [facility] Last Admin: 10/28/19 10:23 Dose: 81 mg Atorvastatin Calcium (Lipitor -) 20 mg PO HS [facility] Last Admin: 10/27/19 21:40 Dose: 20 mg Donepezil HCl (Aricept -) 10 mg PO HS [facility] Last Admin: 10/27/19 21:40 Dose: 10 mg Furosemide (Lasix -) 40 mg PO DAILY [facility] Heparin Sodium (Porcine) (Heparin -) 5,000 unit SQ TID [facility] Last Admin: 10/28/19 13:45 Dose: 5,000 unit Latanoprost (Xalatan 0.005% Eye Drops -) 1 drop OU HS [facility] Last Admin: 10/27/19 21:51 Dose: 1 drop Levothyroxine Sodium (Synthroid -) 75 mcg PO DAILY@0700 [facility] Last Admin: 10/28/19 06:50 Dose: 75 mcg Memantine (Namenda -) 5 mg PO BID [facility] Last Admin: 10/28/19 10:23 Dose: 5 mg Pantoprazole Sodium (Protonix -) 40 mg PO DAILY [facility] Last Admin: 10/28/19 10:23 Dose: 40 mg Pramipexole Dihydrochloride (Mirapex -) 0.375 mg PO AM [facility] Last Admin: 10/28/19 08:43 Dose: 0.375 mg Pramipexole Dihydrochloride (Mirapex -) 0.75 mg PO HS [facility] Last Admin: 10/27/19 21:39 Dose: 0.75 mg Spironolactone (Aldactone -) 25 mg PO DAILY [facility] Last Admin: 10/28/19 10:23 Dose: 25 mg Tamoxifen Citrate (Tamoxifen Citrate) 20 mg PO DAILY [facility] Last Admin: 10/28/19 10:24 Dose: 20 mg Valsartan (Diovan -) 320 mg PO DAILY [facility] Last Admin: 10/28/19 10:23 Dose: 320 mg ASSESSMENT/PLAN: 79 yo. F PMH HTN, HLD, hypothyroidism, iron def anemia, dementia, left breast CA (s/p RT & lumpectomy in 2013), GERD, restless leg syndrome, glaucoma, colon adenomas presenting from PCP office for dyspnea Acute on chronic HFrEF -BMP elevated although downtrending since 10/22 -CXR showing better inspiration, decr lung markings since 10/22 study -lasix 40 IVP today, will start Lasix 40 po tomorrow -monitor Is & Os strict,daily weights -Echo : 45% -fluid restriction - Cardio recs appreciated HTN -cont valsartan -c/w spironolactone -EKG: NSR, LVH, no ST changes. prolonged [place] 200 -trop negative HLD -continue home atorvastatin 20mg daily -low fat diet GERD -continue ppi RLS -continue pramipexole, 0.375mg AM/ 0.75mg HS hypothyroidism -continue synthroid 75mcg daily Dementia -continue memantine, donepezil Glaucoma -continue latanoprost drops HS PPX: hep Dispo:telemetry Visit type - Emergency Visit Emergency Visit: No - New Patient This patient is new to me today: No - Critical Care Critical Care patient: No - Discharge Referral Referred to [facility] No ATTENDING PHYSICIAN STATEMENT I saw and evaluated the patient. I reviewed the resident's note and discussed the case with the resident. I agree with the resident's findings and plan as documented. SUBJECTIVE: OBJECTIVE: ASSESSMENT AND PLAN:
[2019-10-28] MEDS: ACETAMINOPHEN 325 MG TABLET (FP) PO PRN ×2 (15:42→22:46)
--- NOTE | 2019-10-28 18:24 | PN ---
Teaching Attending Note Name of Resident: Char Arnold ATTENDING PHYSICIAN STATEMENT I saw and evaluated the patient. I reviewed the resident's note and discussed the case with the resident. I agree with the resident's findings and plan as documented. SUBJECTIVE: Patient is feeling better , no acute distress. Vital Signs Temperature 97.9 F 10/28/19 14:00 Pulse Rate 81 10/28/19 14:00 Respiratory Rate 18 10/28/19 09:00 Blood Pressure 125/80 10/28/19 14:00 O2 Sat by Pulse Oximetry (%) 98 10/28/19 09:00 GENERAL: The patient is awake, alert, and fully oriented, in no acute distress. HEAD: Normal with no signs of trauma. EYES: PERRL, extraocular movements intact, sclera anicteric, conjunctiva clear. ENT: Ears normal, oropharynx clear without exudates, moist mucous membranes. NECK: Trachea midline, full range of motion, supple. LUNGS: decreased Breath sounds equal, clear to auscultation bilaterally, no wheezes, no crackles, no accessory muscle use. HEART: Regular rate and rhythm, S1, S2 without murmur, rub or gallop. ABDOMEN: Soft, nontender, nondistended, normoactive bowel sounds, no guarding, no rebound, no hepatosplenomegaly, no masses. EXTREMITIES: 2+ pulses, warm, well-perfused, no edema. NEUROLOGICAL: Cranial nerves II through XII grossly intact. Normal speech, gait not observed. PSYCH: Normal mood, normal affect. SKIN: Warm, dry, normal turgor, no rashes or lesions noted CBCD WBC 5.9 K/mm3 (4.0-10.0) 10/28/19 06:00 RBC 3.38 M/mm3 (3.60-5.2) L 10/28/19 06:00 Hgb 10.8 GM/dL (10.7-15.3) 10/28/19 06:00 Hct 33.5 % (32.4-45.2) 10/28/19 06:00 MCV 99.0 fl (80-96) H 10/28/19 06:00 MCHC 32.3 g/dl (32.0-36.0) 10/28/19 06:00 RDW 13.0 % (11.6-15.6) 10/28/19 06:00 Plt Count 270 K/MM3 (134-434) 10/28/19 06:00 MPV 8.8 fl (7.5-11.1) 10/28/19 06:00 CMP Sodium 141 mmol/L (136-145) 10/28/19 06:00 Potassium 4.2 mmol/L (3.5-5.1) 10/28/19 06:00 Chloride 105 mmol/L (98-107) 10/28/19 06:00 Carbon Dioxide 27 mmol/L (21-32) 10/28/19 06:00 Anion Gap 8 MMOL/L (8-16) 10/28/19 06:00 BUN 25.3 mg/dL (7-18) H 10/28/19 06:00 Creatinine 1.3 mg/dL (0.55-1.3) 10/28/19 06:00 Random Glucose 81 mg/dL (74-106) 10/28/19 06:00 Calcium 9.1 mg/dL (8.5-10.1) 10/28/19 06:00 Total Bilirubin 0.4 mg/dL (0.2-1) 10/26/19 05:30 AST 20 U/L (15-37) 10/26/19 05:30 ALT 35 U/L (13-61) 10/26/19 05:30 Alkaline Phosphatase 67 U/L (45-117) 10/26/19 05:30 Total Protein 6.7 g/dl (6.4-8.2) 10/26/19 05:30 Albumin 3.2 g/dl (3.4-5.0) L 10/26/19 05:30 CARDIAC ENZYMES Troponin I 0.03 ng/ml (0.00-0.05) 10/25/19 19:50 Home Medications Medication Instructions Recorded Atorvastatin Ca [Lipitor] 20 mg PO HS 01/03/14 Levothyroxine [Synthroid -] 75 mcg PO DAILY 01/03/14 Aspirin Coated [Ecotrin -] 81 mg PO DAILY #0 01/04/14 Pantoprazole Sodium 40 mg PO DAILY #90 tablet. 02/06/18 Tamoxifen Citrate 20 mg PO DAILY 02/06/18 Latanoprost 0.005% Eye Drops 1 drop OU HS 05/03/19 [Xalatan 0.005% Eye Drops -] Memantine HCl [Namenda -] 5 mg PO BID 05/03/19 Acetaminophen [Tylenol .Regular 650 mg PO Q6H PRN tablet 05/06/19 Strength -] Pramipexole Di-HCl [Pramipexole ER] 0.375 mg PO AM 30 Days #30 05/06/19 tab.er.24h Pramipexole Di-HCl [Pramipexole ER] 0.75 mg PO HS 30 Days #30 05/06/19 tab.er.24h Donepezil HCl [Aricept -] 10 mg PO DAILY 10/22/19 Olmesartan Medoxomil 40 mg PO DAILY 10/22/19 Furosemide [Lasix -] 40 mg PO DAILY 10/26/19 Current Medications Generic Name Dose Route Start Last Admin Trade Name Freq PRN Reason Stop Dose Admin Acetaminophen 650 mg 10/26/19 01:24 10/28/19 15:42 Tylenol - PO 650 mg Q6H PRN Administration PAIN OR FEVER Aspirin 81 mg 10/26/19 10:00 10/28/19 10:23 Ecotrin - PO 81 mg DAILY [facility] Administration Atorvastatin Calcium 20 mg 10/26/19 22:00 10/27/19 21:40 Lipitor - PO 20 mg HS [facility] Administration Donepezil HCl 10 mg 10/26/19 22:00 10/27/19 21:40 Aricept - PO 10 mg HS [facility] Administration Furosemide 40 mg 10/29/19 10:00 Lasix - PO DAILY [facility] Heparin Sodium (Porcine) 5,000 unit 10/26/19 06:00 10/28/19 13:45 Heparin - SQ 5,000 unit TID [facility] Administration Latanoprost 1 drop 10/26/19 22:00 10/27/19 21:51 Xalatan 0.005% Eye Drops - OU 1 drop HS [facility] Administration Levothyroxine Sodium 75 mcg 10/26/19 07:00 10/28/19 06:50 Synthroid - PO 75 mcg DAILY@0700 [facility] Administration Memantine 5 mg 10/26/19 10:00 10/28/19 10:23 Namenda - PO 5 mg BID [facility] Administration Pantoprazole Sodium 40 mg 10/26/19 10:00 10/28/19 10:23 Protonix - PO 40 mg DAILY [facility] Administration Pramipexole Dihydrochloride 0.375 mg 10/28/19 07:00 10/28/19 08:43 Mirapex - PO 0.375 mg AM [facility] Administration Pramipexole Dihydrochloride 0.75 mg 10/27/19 22:00 10/27/19 21:39 Mirapex - PO 0.75 mg HS [facility] Administration Spironolactone 25 mg 10/26/19 10:00 10/28/19 10:23 Aldactone - PO 25 mg DAILY [facility] Administration Tamoxifen Citrate 20 mg 10/26/19 10:00 10/28/19 10:24 Tamoxifen Citrate PO 20 mg DAILY [facility] Administration Valsartan 320 mg 10/26/19 10:00 10/28/19 10:23 Diovan - PO 320 mg DAILY [facility] Administration Assessment and Plan: 79 y/o lady with h/o Systolic and diastolic heart failure, HTN, HLP, carotid artery disease, hypothyroidism, CKD, resltess leg syndrome , MR, TR, L breast cancer s/p lumpectomy/Rtx, GERD, colon adenoma, glaucoma, herniated disks, and other medical problems. She presented with SOB and cough and was found to have acute heart failure exacerbation # Acute exacerbation of systolic and diastolic heart failure - cont IV lasix 40mg daily changed to lasix 40mg po in am - cont spironolactone , Cont ARB , appreciate card input - echo is reviewed. EF 45% - fluid restriction, weight , and I&O # h/o HTN: cotn ARB . # h/o breast cancer. cont tamoxifen # H/o HLP: cont statin. Dispo: HLOC .
[2019-10-28] MEDS: ATORVASTATIN CA 20 MG TABLET (FP) PO SCH (22:45)
[2019-10-28] MEDS: PRAMIPEXOLE DIHYDROCHLORIDE 0.25 MG TABLET PO SCH (22:45)
[2019-10-28] MEDS: DONEPEZIL HCL 10 MG TABLET (FP) PO SCH (22:45)
[2019-10-28] MEDS: LATANOPROST 0.005% OPHTH SOLN 2.5ML BOTTLE OU SCH (22:46)
[2019-10-29] MEDS: HEPARIN NA (PORCINE) 5,000 UNITS/ML 1ML VIAL SQ SCH (06:17)
[2019-10-29] MEDS: PRAMIPEXOLE DIHYDROCHLORIDE 0.125 MG TABLET PO SCH (06:18)
[2019-10-29] MEDS: LEVOTHYROXINE NA 75 MCG TABLET (FP) PO SCH (06:18)
[2019-10-29 08:30] LABS: BLOOD UREA NITROGEN 23.7 mg/dL (7-18); CALCIUM 9.2 mg/dL (8.5-10.1); CREATININE 1.2 mg/dL (0.55-1.3)
--- NOTE | 2019-10-29 09:03 | PN ---
Progress Note (short form) - Note Progress Note: Been ambulatory, no CP/SOB; no cardiac events, on PO lasix Hb 10.8, Ce 1.2 No JVP L:CTA H:RRR Ext: No edema Assessment: 10/26/2019 Echocardiography: Normal LV size with mild decreased LVEF 45%, mild LAE, mod MR, tr TR RVSP 35 mm Hg, mild AR, tr [place] 1. Acute on chronic LV systolic/diastolic heart failure improving 2. HTN 3. Hypercholesterolemia 4. Carotid artery disease 5. Hypothyroidism 6. Organic brain syndrome 7. Acute on CKD improving 8. Restless leg syndrome 9. Mitral valve and tricuspid valve regurgitations PLAN: Stable cardiacwise 1. Furosemide 40 mg po QD with monitor diuretic response,renal function and electrolytes 2. Continue Spironolactone 25 qd, ASA 81 mg QD, Atorvastatin 20 mg QHS 3. Continue Diovan 320 mg QD (home medication included Olmesartan 40 mg QD) 4. D/c planning with f/u in office
--- NOTE | 2019-10-29 09:21 | PN ---
Teaching Attending Note Name of Resident: Char Arnold ATTENDING PHYSICIAN STATEMENT I saw and evaluated the patient. I reviewed the resident's note and discussed the case with the resident. I agree with the resident's findings and plan as documented. SUBJECTIVE: Patient is comfortable with no acute distress, wants to go home. OBJECTIVE: Vital Signs Temperature 98.6 F 10/29/19 05:00 Pulse Rate 81 10/29/19 05:00 Respiratory Rate 20 10/29/19 05:00 Blood Pressure 138/72 10/29/19 05:00 O2 Sat by Pulse Oximetry (%) 94 L 10/28/19 21:00 CBCD WBC 5.9 K/mm3 (4.0-10.0) 10/28/19 06:00 RBC 3.38 M/mm3 (3.60-5.2) L 10/28/19 06:00 Hgb 10.8 GM/dL (10.7-15.3) 10/28/19 06:00 Hct 33.5 % (32.4-45.2) 10/28/19 06:00 MCV 99.0 fl (80-96) H 10/28/19 06:00 MCHC 32.3 g/dl (32.0-36.0) 10/28/19 06:00 RDW 13.0 % (11.6-15.6) 10/28/19 06:00 Plt Count 270 K/MM3 (134-434) 10/28/19 06:00 MPV 8.8 fl (7.5-11.1) 10/28/19 06:00 CMP Sodium 142 mmol/L (136-145) 10/29/19 07:05 Potassium 4.0 mmol/L (3.5-5.1) 10/29/19 07:05 Chloride 107 mmol/L (98-107) 10/29/19 07:05 Carbon Dioxide 28 mmol/L (21-32) 10/29/19 07:05 Anion Gap 6 MMOL/L (8-16) L 10/29/19 07:05 BUN 23.7 mg/dL (7-18) H 10/29/19 07:05 Creatinine 1.2 mg/dL (0.55-1.3) 10/29/19 07:05 Random Glucose 93 mg/dL (74-106) 10/29/19 07:05 Calcium 9.2 mg/dL (8.5-10.1) 10/29/19 07:05 Total Bilirubin 0.4 mg/dL (0.2-1) 10/26/19 05:30 AST 20 U/L (15-37) 10/26/19 05:30 ALT 35 U/L (13-61) 10/26/19 05:30 Alkaline Phosphatase 67 U/L (45-117) 10/26/19 05:30 Total Protein 6.7 g/dl (6.4-8.2) 10/26/19 05:30 Albumin 3.2 g/dl (3.4-5.0) L 10/26/19 05:30 CARDIAC ENZYMES Troponin I 0.03 ng/ml (0.00-0.05) 10/25/19 19:50 Current Medications Generic Name Dose Route Start Last Admin Trade Name Freq PRN Reason Stop Dose Admin Acetaminophen 650 mg 10/26/19 01:24 10/28/19 22:46 Tylenol - PO 650 mg Q6H PRN Administration PAIN OR FEVER Aspirin 81 mg 10/26/19 10:00 10/28/19 10:23 Ecotrin - PO 81 mg DAILY [facility] Administration Atorvastatin Calcium 20 mg 10/26/19 22:00 10/28/19 22:45 Lipitor - PO 20 mg HS [facility] Administration Donepezil HCl 10 mg 10/26/19 22:00 10/28/19 22:45 Aricept - PO 10 mg HS [facility] Administration Furosemide 40 mg 10/29/19 10:00 Lasix - PO DAILY [facility] Heparin Sodium (Porcine) 5,000 unit 10/26/19 06:00 10/29/19 06:17 Heparin - SQ 5,000 unit TID [facility] Administration Latanoprost 1 drop 10/26/19 22:00 10/28/19 22:46 Xalatan 0.005% Eye Drops - OU 1 drop HS [facility] Administration Levothyroxine Sodium 75 mcg 10/26/19 07:00 10/29/19 06:18 Synthroid - PO 75 mcg DAILY@0700 [facility] Administration Memantine 5 mg 10/26/19 10:00 10/28/19 22:45 Namenda - PO 5 mg BID [facility] Administration Pantoprazole Sodium 40 mg 10/26/19 10:00 10/28/19 10:23 Protonix - PO 40 mg DAILY [facility] Administration Pramipexole Dihydrochloride 0.375 mg 10/28/19 07:00 10/29/19 06:18 Mirapex - PO 0.375 mg AM [facility] Administration Pramipexole Dihydrochloride 0.75 mg 10/27/19 22:00 10/28/19 22:45 Mirapex - PO 0.75 mg HS [facility] Administration Spironolactone 25 mg 10/26/19 10:00 10/28/19 10:23 Aldactone - PO 25 mg DAILY [facility] Administration Tamoxifen Citrate 20 mg 10/26/19 10:00 10/28/19 10:24 Tamoxifen Citrate PO 20 mg DAILY [facility] Administration Valsartan 320 mg 10/26/19 10:00 10/28/19 10:23 Diovan - PO 320 mg DAILY [facility] Administration Home Medications Medication Instructions Recorded Atorvastatin Ca [Lipitor] 20 mg PO HS 01/03/14 Aspirin Coated [Ecotrin -] 81 mg PO DAILY #0 01/04/14 Pantoprazole Sodium 40 mg PO DAILY #90 tablet. 02/06/18 Tamoxifen Citrate 20 mg PO DAILY 02/06/18 Latanoprost 0.005% Eye Drops 1 drop OU HS 05/03/19 [Xalatan 0.005% Eye Drops -] Memantine HCl [Namenda -] 5 mg PO BID 05/03/19 Pramipexole Di-HCl [Pramipexole ER] 0.375 mg PO AM 30 Days #30 05/06/19 tab.er.24h Pramipexole Di-HCl [Pramipexole ER] 0.75 mg PO HS 30 Days #30 05/06/19 tab.er.24h Donepezil HCl [Aricept -] 10 mg PO DAILY 10/22/19 Olmesartan Medoxomil 40 mg PO DAILY 10/22/19 Furosemide [Lasix -] 40 mg PO DAILY 10/26/19 Levothyroxine [Synthroid -] 75 mcg PO DAILY@0700 tablet 10/29/19 Spironolactone [Aldactone -] 25 mg PO DAILY #30 tablet 10/29/19 Assessment and Plan: 79 y/o lady with h/o Systolic and diastolic heart failure, HTN, HLP, carotid artery disease, hypothyroidism, CKD, resltess leg syndrome , MR, TR, L breast cancer s/p lumpectomy/Rtx, GERD, colon adenoma, glaucoma, herniated disks, and other medical problems. She presented with SOB and cough and was found to have acute heart failure exacerbation # Acute exacerbation of systolic and diastolic heart failure : on PO lasix now s /p iv lasix , patient can go home as per cardio on oral lasix 40mg daily - cont spironolactone , Cont ARB , appreciate card input - echo is reviewed. EF 45% - fluid restriction, weight , and I&O # h/o HTN: cotn ARB . # h/o breast cancer. cont tamoxifen # H/o HLP: cont statin. Dispo: HLOC .
[2019-10-29] MEDS ORDERED: PT OWN MED DRAWER 7, Y5N ONE (09:27)
[2019-10-29] MEDS: VALSARTAN 160 MG TABLET (UD) PO SCH (09:31)
[2019-10-29] MEDS: PANTOPRAZOLE 40 MG TABLET PO SCH (09:32)
[2019-10-29] MEDS: TAMOXIFEN CITRATE 10 MG TABLET PO SCH (09:32)
[2019-10-29] MEDS: ASPIRIN COATED 81 MG TABLET.EC PO SCH (09:32)
[2019-10-29] MEDS: MEMANTINE HCL 5 MG TABLET (UD) PO SCH (09:32)
[2019-10-29] MEDS: SPIRONOLACTONE 25 MG TABLET (FP) PO SCH (09:34)
[2019-10-29] MEDS ORDERED: FUROSEMIDE 40 MG TABLET (FP) PO SCH (10:00)
--- NOTE | 2019-10-29 10:53 | DS ---
Physical Exam: SUBJECTIVE: Patient seen and examined at [facility]. pt has no acute complaints. OBJECTIVE: Vital Signs Period Temp Pulse Resp BP Sys/Soler Pulse Ox Last 24 Hr 97.9 F-98.6 F 81-97 18-20 119-157/58-80 94 PHYSICAL EXAM GENERAL: The patient is awake, alert, and fully oriented, in no acute distress. LUNGS: Breath sounds equal, clear to auscultation bilaterally, no accessory muscle use. HEART: Regular rate and rhythm, S1, S2 ABDOMEN: Soft, nontender, nondistended, normoactive bowel sounds, no guarding EXTREMITIES: 2+ pulses, warm, well-perfused, no edema. NEUROLOGICAL: Cranial nerves II through XII grossly intact. Normal speech PSYCH: Normal mood, normal affect. SKIN: Warm, dry, normal turgor, no rashes or lesions noted LABS Laboratory Results - last 24 hr 10/29/19 07:05 Sodium 142 Potassium 4.0 Chloride 107 Carbon Dioxide 28 Anion Gap 6 L BUN 23.7 H Creatinine 1.2 Est GFR (CKD-EPI)AfAm 50.48 Est GFR (CKD-EPI)NonAf 43.56 Random Glucose 93 Calcium 9.2 HOSPITAL COURSE: Date of Admission:10/25/19 79 yo. F PMH HTN, HLD, hypothyroidism, iron def anemia, dementia, left breast CA (s/p RT & lumpectomy in 2013), GERD, restless leg syndrome, glaucoma, colon adenomas presenting from PCP office for dyspnea. pt had elevated BNP and was on lasix IV. pt had an echo showing EF 40%. pt was evaluated by cardio.pt was started on spironolactone and advised to continue. pt was maintained on home medications for chronic conditions . pt shoulf f/u outpt with pmd and cardiology Date of Discharge: 10/29/19 Minutes to complete discharge: 36 Discharge Summary Problems reviewed: Yes Reason For Visit: CONGESTIVE HEART FAILURE Current Active Problems Acute kidney injury superimposed on CKD (Acute) Acute on chronic diastolic heart failure (Acute) DIAZ (dyspnea on exertion) (Acute) HTN (hypertension) (Chronic) Heart failure, NYHA class 1 (Chronic) Hypercholesterolemia (Chronic) Hypothyroidism (Chronic) Mitral valve regurgitation (Chronic) Restless leg syndrome (Chronic) Tricuspid valve regurgitation (Chronic) Condition: Improved - Instructions Diet, Activity, Other Instructions: You came into the hospital for shortness of breath. You had a chest xray and lab values that show that this was from your decreased heart function. You had an echocardiogram of your heart showing that you have slightly decreased heart function. You were treated with IV lasix. You were evaluated by cardiology. Please continue to take Lasix 40 mg daily. We started a medication called Spironolactone while you were in the hospital.Please take Spironolactone 25 mg daily. Please continue your additional home medications as prescribed. Please follow up with your primary care physician, Dr. Christianson in one week to manage your chronic medical conditions. Please follow up with your graining press operator, Dr. Holden, to continue to manage your heart failure. Please follow a low sodium diet. If you have any new, worsening, or concerning symptoms please return to the ED or call 911. Referrals: Kd Holden MD [Staff Physician] - Douglas Christianson MD [Primary Care Provider] - Disposition: [facility]/HOME HEALTH CARE - Home Medications Comprehensive Discharge Medication List: Ambulatory Orders Atorvastatin Ca [Lipitor] 20 mg PO HS 01/03/14 Aspirin Coated [Ecotrin -] 81 mg PO DAILY #0 01/04/14 Pantoprazole Sodium 40 mg PO DAILY #90 tablet. 02/06/18 Tamoxifen Citrate 20 mg PO DAILY 02/06/18 Latanoprost 0.005% Eye Drops [Xalatan 0.005% Eye Drops -] 1 drop OU HS 05/03/19 Memantine HCl [Namenda -] 5 mg PO BID 05/03/19 Pramipexole Di-HCl [Pramipexole ER] 0.375 mg PO AM 30 Days #30 tab.er.24h 05/06/19 Pramipexole Di-HCl [Pramipexole ER] 0.75 mg PO HS 30 Days #30 tab.er.24h 05/06/19 Donepezil HCl [Aricept -] 10 mg PO DAILY 10/22/19 Olmesartan Medoxomil 40 mg PO DAILY 10/22/19 Furosemide [Lasix -] 40 mg PO DAILY 10/26/19 Levothyroxine [Synthroid -] 75 mcg PO DAILY@0700 tablet 10/29/19 Spironolactone [Aldactone -] 25 mg PO DAILY #30 tablet 10/29/19 This patient is new to me today: No Emergency Visit: No Critical Care patient: No - Discharge Referral Referred to [facility] Med [facility] No ATTENDING PHYSICIAN STATEMENT I saw and evaluated the patient. I reviewed the resident's note and discussed the case with the resident. I agree with the resident's findings and plan as documented. SUBJECTIVE: OBJECTIVE: ASSESSMENT AND PLAN:
[2019-10-29 11:17] VITALS: BP 120/62; PULSE 89; TEMP 98.1
== END 2019-10-29 13:14 | disposition home health service (06) | DRG 291 ==
LOC: JER 16:16 → JERBED 21:43 → J4W 10-26 21:24
PROVIDERS: ADMIT Internal Medicine; ATTEND Internal Medicine
DX: I13.0 Hypertensive heart and chronic kidney disease with heart failure and stage 1 through stage 4 chronic kidney disease, or unspecified chronic kidney disease (principal); I50.43 Acute on chronic combined systolic (congestive) and diastolic (congestive) heart failure; E03.9 Hypothyroidism, unspecified; K21.9 Gastro-esophageal reflux disease without esophagitis; E78.00 Pure hypercholesterolemia, unspecified
CPT/HCPCS: 36415; 71045-TC-FY; 80048; 80053; 81003; 82550; 82553; 83735; 83880; 84100; 84443; 84484; 85025; 85027; 85610; 85730; 90670; 93005; 93010; 93306-TC; 93970-TC; 99285-25; J1644

== ENCOUNTER 2020-05-20 18:59 | Inpatient (IN) | payer OTHER, MEDICARE ==
[2020-05-20] MEDS ORDERED: ALBUTEROL SO4 HFA INHALER IH ONE (19:32)
--- OUTSIDE RECORDS SUMMARY | 2020-05-20 19:39 | XMS ---
:1940 Author Organization [facility] Support Name Relationship Address Phone RE, RETIRED Unavailable Unavailable Unavailable RE Unavailable Unavailable Unavailable SANGEETA BELL SISTER [address] [phone] [place] [address] Re-disclosure Warning The records that you are about to access may contain information from federally- assisted alcohol or drug abuse programs. If such information is present, then the following federally mandated warning applies: This information has been disclosed to you from records protected by federal confidentiality rules (42 CFR part 2). The federal rules prohibit you from making any further disclosure of this information unless further disclosure is expressly permitted by the written consent of the person to whom it pertains or as otherwise permitted by 42 CFR part 2. A general authorization for the release of medical or other information is NOT sufficient for this purpose. The Federal rules restrict any use of the information to criminally investigate or prosecute any alcohol or drug abuse patient.The records that you are about to access may contain highly sensitive health information, the redisclosure of which is protected by Article 27-F of the [facility] Public Health law. If you continue you may haveaccess to information: Regarding HIV / AIDS; Provided by facilities licensed or operated by the [facility] Office of Mental Health; or Provided by the [facility] Office for People With Developmental Disabilities. If such information is present, then the following [facility] mandated warning applies: This information has been disclosed to you from confidential records which are protected by state law. State law prohibits you from making any further disclosure of this information without the specific written consent of the person to whom it pertains, or as otherwise permitted by law. Any unauthorized further disclosure in violation of state law may result in a fine or prison sentence or both. A general authorization for the release of medical or other information is NOT sufficient authorization for further disclosure. Insurance Providers Payer name Policy type Policy ID Covered Covered democrat's Policy P scott / Coverage democrat ID relationship to Saenz Inf ormation type saenz [facility] [id number] SP [id number] CARE OPTIONS MEDICARE [id number] SP [id number] MEDICARE [id number] SP [id number] [facility] [id number] SP [id number] CARE OPTIONS MEDICARE [id number] SP [id number] A MEDICARE [id number] SP [id number] A Results ID Date Data Source [id number] 05/05/2020 01:22:00 PM EDT [facility] Name Value Range Interpretation Description Data Sup porting Code Source(s) Document(s ) SARS [facility] coronavirus 2 RNA This lab was ordered by [facility] and reported by [facility]. ID Date Data Source [id number] 02/25/2020 12:30:00 PM EDT [facility] Name Value Range Interpretation Description Data Sup porting Code Source(s) Document(s ) SARS [facility] CORONAVIRUS 2 RNA This lab was ordered by [facility] and reported by [facility]. ID Date Data Source [id number] 01/05/2020 12:00:00 AM EDT [facility] Name Value Range Interpretation Code Description Data Jacquelyn rce(s) Supporting Document(s ) 2019-nCoV [facility] RNA XXX YONATAN+probe- Imp This lab was ordered by [facility] and reported by [employer] [facility] Procedure
--- NOTE | 2020-05-20 19:53 | PDOC ---
History of Present Illness - General Chief Complaint: Wheezing Stated Complaint: WHEEZING, SOB Time Seen by Provider: 05/20/20 19:18 History Source: Patient Exam Limitations: No Limitations - History of Present Illness Initial Comments: 05/20/20 19:40 79F PMH CHF, HTN, HLD, iron deficiency anemia, left breast CA s/p lumpectomy, hypothyroid, glaucoma, and restless leg syndrome presenting with 1-2 months of progressively worsening orthopnea, DIAZ, and wheezing. Prompted to be evaluated today because wheezing was worse than normal. Has pitting edema of the legs that is not at its worst. Denies f/c, cp, n/v/d, urinary problems. NKDA. Past History - Medical History Allergies/Adverse Reactions: Allergies Allergy/AdvReac Type Severity Reaction Status Date / Time No Known Allergies Allergy Verified 05/20/20 19:15 Home Medications: Ambulatory Orders Atorvastatin Ca [Lipitor] 20 mg PO HS 01/03/14 Aspirin Coated [Ecotrin -] 81 mg PO DAILY #0 01/04/14 Pantoprazole Sodium 40 mg PO DAILY #90 tablet. 02/06/18 Tamoxifen Citrate 20 mg PO DAILY 02/06/18 Latanoprost 0.005% Eye Drops [Xalatan 0.005% Eye Drops -] 1 drop OU HS 05/03/19 Memantine HCl [Namenda -] 5 mg PO BID 05/03/19 Pramipexole Di-HCl [Pramipexole ER] 0.375 mg PO AM 30 Days #30 tab.er.24h 05/06/19 Pramipexole Di-HCl [Pramipexole ER] 0.75 mg PO HS 30 Days #30 tab.er.24h 05/06/19 Donepezil HCl [Aricept -] 10 mg PO DAILY 10/22/19 Olmesartan Medoxomil 40 mg PO DAILY 10/22/19 Furosemide [Lasix -] 40 mg PO DAILY 10/26/19 Levothyroxine [Synthroid -] 75 mcg PO DAILY #30 tablet 10/29/19 Levothyroxine [Synthroid -] 75 mcg PO DAILY@0700 tablet 10/29/19 Spironolactone [Aldactone -] 25 mg PO DAILY #30 tablet 10/29/19 Anemia: Yes Asthma: No Cancer: Yes (LEFT BREAST CANCER) Cardiac Disorders: No CVA: No COPD: No CHF: Yes Dementia: Yes Diabetes: No GI Disorders: Yes (NSAID GASTRITIS, COLON ADENOMAS) Disorders: No HTN: Yes Hypercholesterolemia: Yes Liver Disease: Yes (COLON ADENOMA) Seizures: No Thyroid Disease: Yes (HYPOTHYROIDISM) - Surgical History Abdominal Surgery: Yes (RIGHT INGUINAL REPAIR) Appendectomy: Yes (EGD,COLONOSCOPY) Cardiac Surgery: No Cholecystectomy: No Lung Surgery: No Neurologic Surgery: No Orthopedic Surgery: No - Psycho-Social/Smoking History Smoking History: Unknown if ever smoked Have you smoked in the past 12 months: No If you are a former smoker, when did you quit?: 1999 - Substance Abuse Hx (Audit-C & DAST Scrn) How often the patient has a drink containing alcohol: Never Score: In Men: 4 or > Positive; In Women: 3 or > Positive: 0 Screen Result (Pos requires Nsg. Audit-10AR): Negative In the last yr the pt used illegal drug/Rx for NonMed reason: No Score: Yes response is considered Positive: 0 Screen Result (Positive result requires Nsg. DAST-10): Negative Review of Systems - Review of Systems Comments:: 05/21/20 08:49 CONSTITUTIONAL: Denies F / C HEENT: Denies headache, lightheadedness, dizziness, sore throat, rhinorrhea RESP: + SOB, cough, orthopnea, DIAZ CARD: Denies chest pain GI: Denies N / V / D, abdominal pain : Denies dysuria NEURO: Denies numbness, tingling, weakness MSK: Denies back pain SKIN: Denies rashes *Physical Exam - Vital Signs Last Vital Signs Temp Pulse Resp BP Pulse Ox 98.5 F 84 19 134/87 97 05/20/20 19:12 05/20/20 19:26 05/20/20 19:26 05/20/20 19:26 05/20/20 19:26 - Physical Exam 05/21/20 08:49 GEN: Well appearing, NAD, comfortable. AAOx3. HEENT: NC/AT, EOMI. No facial asymmetry. Normal voice. Supple neck w/ FROM. CV: S1/S2, RRR, no m/r/g LUNG: Diffuse wheezes. Crackles of bases. no respiratory distress. audible wheezes. GI: Soft, ndnt, +BS, no guarding, no rebound. MSK: 1+ LE edema b/l. No obvious deformities of all extremities. SKIN: Warm, dry, no rashes appreciated. PSYCH: Normal mood and affect. NEURO: Moving all extremities well. ED Treatment Course - LABORATORY CBC & Chemistry Diagram: 05/21/20 05:26 05/21/20 05:26 - RADIOLOGY Radiology Studies Ordered: Category Date Time Status CHEST X-RAY PORTABLE* [RAD] Stat Radiology 05/20/20 19:32 Ordered Medical Decision Making - Medical Decision Making 05/21/20 08:49 79F w/ progressive DIAZ and orthopnea; in today w/ worsening wheeze. diffuse and audible wheezing w/ crackles at the base. SaO2 RA 97%. DDX CHF exacerbation, PNA, COPD? - CBC, CMP, BNP - EKG 20:31 HR 80 NSR no MARY/D no TWI - CXR - Lasix if studies c/w CHF 05/20/20 22:18 Pt continues to wheeze despite taking 2 puffs of her own albuterol labs reviewed; BNP elevated though has been higher in the past CXR about the same as Oct 2019 CXR for which she was admitted for CHF exacerbation Will admit for further management 05/20/20 22:44 endorsed to hospitalist for admission Discharge - Discharge Information Problems reviewed: Yes Clinical Impression/Diagnosis: CHF exacerbation Condition: Stable - Admission Yes - Follow up/Referral - Patient Discharge Instructions - Post Discharge Activity
[2020-05-20 20:45] LABS: BASO % 0.6 % (0-2.0); EOS % 6.3 % (0-4.5); HEMATOCRIT 31.7 % (32.4-45.2); HEMOGLOBIN 10.5 GM/dL (10.7-15.3); MCH 32.6 pg (25.7-33.7); MCHC 33.2 g/dl (32.0-36.0); MEAN CELL VOLUME 98.2 fl (80-96); MEAN PLT VOLUME 8.8 fl (7.5-11.1); MONO % 9.5 % (3.8-10.2); NEUT % 60.6 % (42.8-82.8); PLATELET COUNT 216 K/MM3 (134-434); RBC 3.23 M/mm3 (3.60-5.2); RDW 12.8 % (11.6-15.6); WHITE BLOOD COUNT 6.5 K/mm3 (4.0-10.0)
[2020-05-20 21:01] LABS: ALBUMIN 3.4 g/dl (3.4-5.0); BILIRUBIN,TOTAL 0.3 mg/dL (0.2-1); BLOOD UREA NITROGEN 28.5 mg/dL (7-18); CALCIUM 8.4 mg/dL (8.5-10.1); CREATININE 1.6 mg/dL (0.55-1.3); POTASSIUM 3.7 mmol/L (3.5-5.1); TOT PROT 7.2 g/dl (6.4-8.2)
--- NOTE | 2020-05-20 22:41 | HP ---
Admitting History and Physical - Primary Care Physician PCP: Dr. Christianson - Admission Chief Complaint: Shortness of breath, lower extremity edema History of Present Illness: 79-year-old female with a past medical history significant for CHF, HTN, HLD, ir on deficiency anemia, L. breast CA s/p lumpectomy, hypothyroidism, restless leg syndrome who presents to the emergency department with worsening orthopnea, dyspnea on exertion, and wheezing. The patient reports the wheezing worsened today, which promoted the patient to seek evaluation. Denies fever, chills, chest pain, or abdominal pain. The patient reports following up at urgent care for the symptoms, she was given albuterol, without relief. PMHx: CHF HTN HLD Iron deficiency anemia Left breast CA s/p lumpectomy Hypothyroidism Restless leg syndrome History Source: Patient - Past Medical History Cardiovascular: Yes: CAD, CHF, HTN, Hyperlipdemia Gastrointestinal: Yes: GERD Endocrine: Yes: Hypothyroidism - Smoking History Smoking history: Unknown if ever smoked Have you smoked in the past 12 months: No If you are a former smoker, when did you quit?: 1999 - Alcohol/Substance Use Hx Alcohol Use: Yes (social) - Social History Usual Living Arrangement: Yes: Other (With family) Home Medications - Allergies Allergies/Adverse Reactions: Allergies Allergy/AdvReac Type Severity Reaction Status Date / Time No Known Allergies Allergy Verified 05/20/20 19:15 - Home Medications Home Medications: Ambulatory Orders Atorvastatin Ca [Lipitor] 20 mg PO HS 01/03/14 Aspirin Coated [Ecotrin -] 81 mg PO DAILY #0 01/04/14 Pantoprazole Sodium 40 mg PO DAILY #90 tablet. 02/06/18 Tamoxifen Citrate 20 mg PO DAILY 02/06/18 Latanoprost 0.005% Eye Drops [Xalatan 0.005% Eye Drops -] 1 drop OU HS 05/03/19 Memantine HCl [Namenda -] 5 mg PO BID 05/03/19 Pramipexole Di-HCl [Pramipexole ER] 0.375 mg PO AM 30 Days #30 tab.er.24h 05/06/19 Pramipexole Di-HCl [Pramipexole ER] 0.75 mg PO HS 30 Days #30 tab.er.24h 05/06/19 Donepezil HCl [Aricept -] 10 mg PO DAILY 10/22/19 Olmesartan Medoxomil 40 mg PO DAILY 10/22/19 Furosemide [Lasix -] 40 mg PO DAILY 10/26/19 Levothyroxine [Synthroid -] 75 mcg PO DAILY #30 tablet 10/29/19 Levothyroxine [Synthroid -] 75 mcg PO DAILY@0700 tablet 10/29/19 Spironolactone [Aldactone -] 25 mg PO DAILY #30 tablet 10/29/19 Family Medical History Family History: Denies Review of Systems - Review of Systems Constitutional: reports: No Symptoms Eyes: reports: No Symptoms HENT: reports: No Symptoms Neck: reports: No Symptoms Cardiovascular: reports: Other (Lower extremity edema) Respiratory: reports: SOB Gastrointestinal: reports: No Symptoms Genitourinary: reports: No Symptoms Breasts: reports: No Symptoms Reported, Pain Integumentary: reports: No Symptoms Neurological: reports: No Symptoms Physical Examination Vital Signs: Vital Signs Temperature 98.5 F 05/20/20 19:12 Pulse Rate 84 05/20/20 19:26 Respiratory Rate 05/20/20 19:26 Blood Pressure 134/87 05/20/20 19:26 O2 Sat by Pulse Oximetry (%) 97 05/20/20 19:26 Constitutional: Yes: Well Nourished, No Distress Eyes: Yes: WNL, Conjunctiva Clear, EOM Intact HENT: Yes: WNL, Atraumatic, Normocephalic Neck: Yes: WNL, Supple Cardiovascular: Yes: WNL, Regular Rate and Rhythm Respiratory: Yes: WNL, Regular, CTA Bilaterally Gastrointestinal: Yes: WNL, Normal Bowel Sounds, Soft Musculoskeletal: Yes: WNL Extremities: Yes: Other (lower extremity edema 1 to 2+) Integumentary: Yes: WNL Wound/Incision: Yes: Clean/Dry Neurological: Yes: WNL, Alert, Oriented Psychiatric: Yes: WNL, Alert, Oriented Labs: CBC, BMP 05/20/20 20:00 05/20/20 20:00 Imaging - Results Chest X-ray: Pending, Report Reviewed (No congestive changes or signs of pneumonia) Assessment/Plan 79-year-old female with a past medical history significant for CHF, HTN, HLD, iron deficiency anemia, L. breast CA s/p lumpectomy, hypothyroidism, restless leg syndrome who presents to the emergency department with worsening orthopnea, dyspnea on exertion, and wheezing x 1-2 months. PLAN # Dyspnea/wheeze - Rule out CHF exacerbation - Admit to medicine - Chest xray with no congestive changes or signs of PNA, BNP mildy elevated 788 - 1s troponin negative , continue to trend - send for 2 D ECHO, lipid panel in AM - For now continue to monitor # Hypertension- BP optimal (was elevated on admission) resume home med olmesartan # Hyperlipidemia- low fat diet # Iron Deficiency Anemia- monitor for stigmata for bleeding # Left breast cancer s/p lumpectomy- resume tamoxifen # Restless leg syndrome- home med pramipexole is nonformulary here # DVT prophylaxsis - SQ heparin BID Visit type - Medication Review Med list reviewed for High Risk Meds patients 65 and older: Yes - Emergency Visit Emergency Visit: Yes ED Registration Date: 05/20/20 Care time: The patient presented to the Emergency Department on the above date and was hospitalized for further evaluation of their emergent condition. - New Patient This patient is new to me today: No - Critical Care Critical Care patient: No
[2020-05-20] MEDS ORDERED: ACETAMINOPHEN 325 MG TABLET (FP) PO PRN (22:47)
--- OUTSIDE RECORDS SUMMARY | 2020-05-20 23:23 | XMS ---
:1940 Author Organization [facility] Support Name Relationship Address Phone RE, RETIRED Unavailable Unavailable Unavailable RE Unavailable Unavailable Unavailable SANGEETA BELL SISTER [address] [place] [address] Re-disclosure Warning The records that you are [...] is protected by Article 27-F of the [facility] Public Health law. If you continue you may haveaccess to information: Regarding HIV / AIDS; Provided by facilities licensed or operated by the [facility] Office of Mental Health; or Provided by the [facility] Office for People With Developmental Disabilities. If such information is present, then the following [facility] mandated warning applies: This information [...] law may result in a fine or custodial sentence or both. A general authorization for the release of medical or other information is NOT sufficient authorization for further disclosure. Insurance Providers Payer name Policy type Policy ID Covered Covered green party's Policy P scott / Coverage green party ID relationship to Saenz Inf ormation type saenz [facility] [id number] SP [id number] CARE OPTIONS MEDICARE [id number] SP [id number] [id number] MEDICARE [id number] SP [id number] [id number] [facility] [id number] SP [id number] CARE OPTIONS MEDICARE [id number] SP [id number] A MEDICARE [id number] SP [id number] A Results ID Date Data Source [id number] 05/05/2020 01:22:00 PM EDT [facility] Name Value Range Interpretation Description Data Sup porting Code Source(s) Document(s ) SARS [facility] coronavirus 2 RNA This lab was ordered by [facility] and reported by [facility]. ID Date Data Source [id number] 02/25/2020 12:30:00 PM EDT [facility] Name Value Range Interpretation Description Data Sup porting Code Source(s) Document(s ) SARS [facility] CORONAVIRUS 2 RNA This lab was ordered by [facility] and reported by [facility]. ID Date Data Source [id number] 01/05/2020 12:00:00 AM EDT [facility] Name Value Range Interpretation Code Description Data Jacquelyn rce(s) Supporting Document(s ) 2019-nCoV [facility] RNA XXX YONATAN+probe- Imp This lab was ordered by [facility] and reported by [employer] [facility] Procedure
--- NOTE | 2020-05-21 00:19 | PDOC ---
Documentation entered by Joan Whalen SCRIBE, acting as scribe for Edie Judge MD. Edie Judge MD: This documentation has been prepared by the tonibKoby doran Lincy, SCRIBE, under my direction and personally reviewed by me in its entirety. I confirm that the documentation accurately reflects all work, treatment, procedures, and medical decision making performed by me. Attending Attestation - Resident Resident Name: Lobo Rodriguez - HPI HPI: 05/20/20 20:33 The patient is a 79-year-old female with a past medical history significant for CHF, HTN, HLD, iron deficiency anemia, L. breast CA s/p lumpectomy, hypothyroidism, restless leg syndrome who presents to the emergency department with worsening orthopnea, dyspnea on exertion, and wheezing. The patient reports the wheezing worsened today, which promoted the patient to seek evaluation. Denies fever, chills, chest pain, or abdominal pain. The patient reports following up at urgent care for the symptoms, she was given albuterol, without relief. - Physicial Exam PE: 05/20/20 21:03 GENERAL: Awake, alert, and fully oriented, in no acute distress LUNGS: +tachypneic, speaking in 4-5 sentences, diffuse wheezing, decreased air entry bilaterally. HEART: Regular rate and rhythm. No murmur. ABDOMEN: Soft, nontender, nondistended. EXTREMITIES: bilateral +1 pitting edema to the knees. - Medical Decision Making 05/20/20 21:21 pt presents to the ED complaining of shortness of breath and worsening wheezing. +wheezing on exam, as well as slight tachypnea. Labs show elevated BNP. Differential includes CHF exacerbation. Other pulmonary pathology, such as asthma cannot be excluded, but seems less likely. Will admit to medicine for continued management. 05/21/20 00:09 05/21/20 00:09 Discharge - Discharge Information Problems reviewed: Yes Clinical Impression/Diagnosis: CHF exacerbation Condition: Stable - Follow up/Referral - Patient Discharge Instructions - Post Discharge Activity
[2020-05-21] MEDS ORDERED: ALBUTEROL SO4 HFA INHALER IH ONE ×2 (05:15→18:49)
[2020-05-21 06:26] LABS: HEMOGLOBIN 10.3 GM/dL (10.7-15.3); MCH 32.5 pg (25.7-33.7); MCHC 33.1 g/dl (32.0-36.0); MEAN PLT VOLUME 8.5 fl (7.5-11.1); PLATELET COUNT 227 K/MM3 (134-434); RBC 3.17 M/mm3 (3.60-5.2); RDW 12.8 % (11.6-15.6); WHITE BLOOD COUNT 6.7 K/mm3 (4.0-10.0)
[2020-05-21 06:56] LABS: BLOOD UREA NITROGEN 27.5 mg/dL (7-18); CALCIUM 8.7 mg/dL (8.5-10.1); CREATININE 1.6 mg/dL (0.55-1.3); POTASSIUM 4.1 mmol/L (3.5-5.1)
--- NOTE | 2020-05-21 09:29 | EKG ---
Test Reason : Blood Pressure : / mmHG Vent. Rate : 080 BPM Atrial Rate : 080 BPM P-R Int : 180 ms QRS Dur : 108 ms QT Int : 408 ms P-R-T Axes : 031 -01 013 degrees QTc Int : 470 ms NORMAL SINUS RHYTHM VOLTAGE CRITERIA FOR LEFT VENTRICULAR HYPERTROPHY ABNORMAL ECG WHEN COMPARED WITH ECG OF 25-OCT-2019 19:18, NO SIGNIFICANT CHANGE WAS FOUND Confirmed by Charis La ([id number]) on 05/21/2020 9:29:23 AM Referred By: Confirmed By:Charis La
[2020-05-21] MEDS ORDERED: LEVOTHYROXINE NA 25 MCG TABLET (FP) ONE (09:34)
[2020-05-21] MEDS: LEVOTHYROXINE NA 75 MCG TABLET (FP) PO SCH (09:42)
[2020-05-21] MEDS ORDERED: TAMOXIFEN CITRATE 20 MG PO SCH (10:00)
[2020-05-21] MEDS ORDERED: VALSARTAN 160 MG TABLET (UD) PO SCH (10:00)
[2020-05-21] MEDS ORDERED: SPIRONOLACTONE 25 MG TABLET PO SCH (10:00)
[2020-05-21] MEDS ORDERED: PATIENT'S OWN MEDICATION (NON-FORMULARY) (Olmesartan Medoxomil [Olmesartan Medoxomil] 40 M PO SCH (10:00)
[2020-05-21] MEDS ORDERED: ENOXAPARIN NA (PORCINE) 40 MG/0.4 ML DISP.SYRIN SQ SCH (10:00)
[2020-05-21] MEDS ORDERED: FUROSEMIDE 40 MG TABLET (FP) PO SCH (10:00)
[2020-05-21] MEDS ORDERED: predniSONE 20 MG TABLET (UD) ONE (10:49)
[2020-05-21] MEDS ORDERED: ASPIRIN COATED 81 MG TABLET.EC ONE (10:50)
[2020-05-21] MEDS ORDERED: HEPARIN NA (PORCINE) 5,000 UNITS/ML 1ML VIAL ONE (10:50)
[2020-05-21] MEDS ORDERED: PANTOPRAZOLE 40 MG TABLET ONE (10:50)
[2020-05-21] MEDS: TAMOXIFEN CITRATE 10 MG TABLET PO SCH (10:55)
[2020-05-21] MEDS: ASPIRIN COATED 81 MG TABLET.EC PO SCH (10:55)
[2020-05-21] MEDS: HEPARIN NA (PORCINE) 5,000 UNITS/ML 1ML VIAL SQ SCH ×2 (10:55→21:51)
[2020-05-21] MEDS: MEMANTINE HCL 5 MG TABLET (UD) PO SCH ×2 (10:55→22:49)
[2020-05-21] MEDS: predniSONE 20 MG TABLET (UD) PO SCH (10:55)
[2020-05-21] MEDS: PANTOPRAZOLE 40 MG TABLET PO SCH (10:55)
[2020-05-21] MEDS ORDERED: SODIUM CHLORIDE 0.9% 500 ML INFUS.BAG IV ONE (11:27)
[2020-05-21 11:44] LABS: URINE APPEARANCE CLEAR; URINE BILIRUBIN NEGATIVE (NEGATIVE); URINE COLOR YELLOW; URINE GLUCOSE (UA) NEGATIVE (NEGATIVE); URINE KETONE NEGATIVE (NEGATIVE); URINE LEUK ESTERASE NEGATIVE (NEGATIVE); URINE NITRITE NEGATIVE (NEGATIVE); URINE PROTEIN NEGATIVE (NEGATIVE); URINE UROBILINOGEN 0.2 mg/dL (0.2-1.0)
[2020-05-21] MEDS ORDERED: ALBUTEROL SO4 2.5/IPRATROPIUM 0.5 INH SOL 3 ML VIAL.NEB. NEB PRN (11:45)
--- NOTE | 2020-05-21 11:45 | PN ---
Progress Note (short form) - Note Progress Note: SUBJECTIVE: Seen and examined at bedside. Patient's with audible wheezing but is satting well on room air and speaking in full sentences. Also noted to have JUSTINE with creatinine of 1.6 up from baseline of 0.9 OBJECTIVE Last Vital Signs Temp Pulse Resp BP Pulse Ox 97.9 F 79 20 108/68 99 05/21/20 10:00 05/21/20 10:00 05/21/20 10:00 05/21/20 10:00 05/21/20 10:00 GEN: NAD HEENT: NC/AT [place]ARLL RESP: CTAB CARDS: RRR, -MRG ABD: soft, nt/nd +BS EXT: No swelling/Edema Neuro: Non-focal, A&OX3 Labs/Imaging: reviewed ASSESSMENT/PLAN 79-year-old female with a past medical history of CHF, HTN, HLD, iron deficiency anemia, left breast CA, hypothyroidism, RLS presented to the emergency department with dyspnea on exertion and wheezing x1 to 2 months. #Dyspnea/wheeze Patient does not appear to be in a CHF exacerbation, nor does she have a pneumonia. Is currently satting 98% on room air We will start prednisone Duo nebs Cancel cardiac work-up #JUSTINE Creatinine of 1.6, baseline between 0.9 and 1.2 Suspect the patient is prerenal, will get urine lites and calculate FENa We will give 500 cc of fluid Hold Lasix, ARB, spironolactone #Hypertension Hold ARB, spironolactone, Lasix #Hypothyroidism Continue home levothyroxine #CAD Continue ASA/statin #History of breast cancer Continue tamoxifen Visit type - Emergency Visit Emergency Visit: Yes ED Registration Date: 05/20/20 Care time: The patient presented to the Emergency Department on the above date and was hospitalized for further evaluation of their emergent condition. - New Patient This patient is new to me today: Yes Date on this admission: 05/21/20 - Critical Care Critical Care patient: No - Medication Review Med list reviewed for High Risk Meds patients 65 and older: Yes
[2020-05-21] MEDS ORDERED: ALBUTEROL SO4 2.5/IPRATROPIUM 0.5 INH SOL 3 ML VIAL.NEB. NEB ONE (12:37)
[2020-05-21 15:52] VITALS: BMI 32.2
[2020-05-21] MEDS ORDERED: ALBUTEROL SO4 0.083% IH SOL 2.5 MG/3 ML VIAL.NEB. NEB ONE (18:35)
[2020-05-21] MEDS ORDERED: PRAMIPEXOLE DIHYDROCHLORIDE 0.5 MG TABLET PO ONE (18:35)
[2020-05-21] MEDS: DONEPEZIL HCL 10 MG TABLET (FP) PO SCH (21:51)
[2020-05-21] MEDS: ATORVASTATIN CA 20 MG TABLET (FP) PO SCH (21:51)
[2020-05-21] MEDS ORDERED: PT OWN MED DRAWER 7, Y5N ONE (21:54)
[2020-05-21] MEDS: LATANOPROST 0.005% OPHTH SOLN 2.5ML BOTTLE OU SCH (22:49)
[2020-05-21] MEDS ORDERED: MAG HYDROX/AL HYDROX/SIMETH 30 ML UNIT-DOSE CUP PO ONE (23:39)
[2020-05-22] MEDS: LEVOTHYROXINE NA 75 MCG TABLET (FP) PO SCH (07:02)
[2020-05-22] MEDS ORDERED: PT OWN MED DRAWER 7, Y5N ONE ×2 (10:01→23:02)
[2020-05-22] MEDS: ASPIRIN COATED 81 MG TABLET.EC PO SCH (10:15)
[2020-05-22] MEDS: PANTOPRAZOLE 40 MG TABLET PO SCH (10:15)
[2020-05-22] MEDS: predniSONE 20 MG TABLET (UD) PO SCH (10:15)
[2020-05-22] MEDS: MEMANTINE HCL 5 MG TABLET (UD) PO SCH ×2 (10:15→23:07)
[2020-05-22] MEDS: TAMOXIFEN CITRATE 10 MG TABLET PO SCH (10:15)
[2020-05-22] MEDS: HEPARIN NA (PORCINE) 5,000 UNITS/ML 1ML VIAL SQ SCH ×2 (10:16→23:07)
[2020-05-22 13:58] LABS: BLOOD UREA NITROGEN 25.4 mg/dL (7-18); CALCIUM 8.6 mg/dL (8.5-10.1); CREATININE 1.4 mg/dL (0.55-1.3); POTASSIUM 4.2 mmol/L (3.5-5.1)
--- NOTE | 2020-05-22 14:43 | PN ---
Teaching Attending Note Name of Resident: Eliezer Francois (\) ATTENDING PHYSICIAN STATEMENT I saw and evaluated the patient. I reviewed the resident's note and discussed the case with the resident. I agree with the resident's findings and plan as documented. SUBJECTIVE: Seen and examined at bedside. Wheezing improved, slight expiratory wheeze. Satting 98-99 on RA. Marketing Operations Specialist improved to 1.4. Pt is medically cleared for discharge. Will hold lasix, spironolactone, and olmesartan and encourage careful additional hydration (1-2 glasses water extra daily). Pt has appointment with PCP on friday. Labs can be repeated and meds restarted as needed. Will DC on 4 days of prednisone for total of 5 days tx, prescribe albuterol inhaler. OBJECTIVE Last Vital Signs Temp Pulse Resp BP Pulse Ox 97.9 F 79 20 108/68 99 05/21/20 10:00 05/21/20 10:00 05/21/20 10:00 05/21/20 10:05/21/20 10:00 GEN: NAD HEENT: NC/AT [facility] RESP: CTAB CARDS: RRR, -MRG ABD: soft, nt/nd +BS EXT: No swelling/Edema Neuro: Non-focal, A&OX3 Labs/Imaging: reviewed ASSESSMENT/PLAN 79-year-old female with a past medical history of CHF, HTN, HLD, iron deficiency anemia, left breast CA, hypothyroidism, RLS presented to the emergency department with dyspnea on exertion and wheezing x1 to 2 months. Found to have prerenal JUSTINE 2/2 overdiuresis and wheeze likely 2/2 bronchitis. Pt was given IVF and steroids with improvement in stone grader and wheezing. HD stable on RA. Pt is medically cleared for discharge. Will hold lasix, spironolactone, and olmesartan and encourage careful additional hydration (1-2 glasses water extra daily). Pt has appointment with PCP on friday. Labs can be repeated and meds restarted as needed. Will DC on 4 days of prednisone for total of 5 days tx, prescribe albuterol inhaler.
--- NOTE | 2020-05-22 15:06 | DS ---
Physical Exam: SUBJECTIVE: Patient seen and examined OBJECTIVE: Vital Signs Period Temp Pulse Resp BP Sys/Soler Pulse Ox Last 24 Hr 97.5 F-98.9 F 80-104 18-20 129-163/68-99 97-99 PHYSICAL EXAM GENERAL: The patient is awake, alert, and fully oriented, in no acute distress. HEAD: Normal with no signs of trauma. EYES: PERRL, extraocular movements intact, sclera anicteric, conjunctiva clear. ENT: Ears normal, nares patent, oropharynx clear without exudates, moist mucous membranes. NECK: Trachea midline, full range of motion, supple. LUNGS: Breath sounds equal, clear to auscultation bilaterally, no wheezes, no crackles, no accessory muscle use. HEART: Regular rate and rhythm, S1, S2 without murmur, rub or gallop. ABDOMEN: Soft, nontender, nondistended, normoactive bowel sounds, no guarding, no rebound, no hepatosplenomegaly, no masses. EXTREMITIES: 2+ pulses, warm, well-perfused, no edema. NEUROLOGICAL: Cranial nerves II through XII grossly intact. Normal speech, gait not observed. PSYCH: Normal mood, normal affect. SKIN: Warm, dry, normal turgor, no rashes or lesions noted. LABS Laboratory Results - last 24 hr 05/22/20 08:23 Sodium 141 Potassium 4.2 Chloride 110 H Carbon Dioxide 21 Anion Gap 11 BUN 25.4 H Creatinine 1.4 H Est GFR (CKD-EPI)AfAm 41.90 Est GFR (CKD-EPI)NonAf 36.15 Random Glucose 84 Calcium 8.6 Troponin I 0.03 TSH 1.73 HOSPITAL COURSE: Date of Admission:05/20/20 Date of Discharge: 05/22/20 Discharge Summary Problems reviewed: Yes Reason For Visit: ACUTE ON CHRONIC CONGESTIVE HEART FAILURE Current Active Problems JUSTINE (acute kidney injury) (Acute) Bronchitis (Acute) Condition: Improved - Instructions Diet, Activity, Other Instructions: You presented to the hospital due to wheezing and shortness of breath. You were found to have an exacerbation of your heart failure. Your kidney function was also abnormal. Please stop taking your Lasix, Olmesartan, and Spironolactone until you visit your primary care doctor this Friday. These medications may cause kidney injury. You should also have a BMP (blood test) performed this week to re- evaluate your kidney function. Please continue to take all of your other medications as previously prescribed. Please be sure to drink at least 1-2 glasses more than your usual fluid intake daily. Please also be sure to weight yourself daily to make sure you are not retaining to much fluid. You will be sent home on 3 more days of Prednisone 40 mg daily. You will also be sent home with an albuterol inhaler for symptomatic relief of your wheezing. Please return to the emergency department if you develop any worsening symptoms such as shortness of breath, chest pain, nausea/vomiting, or increasing lower extremity swelling. Referrals: Douglas Christianson MD [Primary Care Provider] - Disposition: HOME - Home Medications Comprehensive Discharge Medication List: Ambulatory Orders Atorvastatin Ca [Lipitor] 20 mg PO HS 01/03/14 Aspirin Coated [Ecotrin -] 81 mg PO DAILY #0 01/04/14 Pantoprazole Sodium 40 mg PO DAILY #90 tablet. 02/06/18 Tamoxifen Citrate 20 mg PO DAILY 02/06/18 Latanoprost 0.005% Eye Drops [Xalatan 0.005% Eye Drops -] 1 drop OU HS 05/03/19 Memantine HCl [Namenda -] 5 mg PO BID 05/03/19 Pramipexole Di-HCl [Pramipexole ER] 0.375 mg PO AM 30 Days #30 tab.er.24h 05/06/19 Pramipexole Di-HCl [Pramipexole ER] 0.75 mg PO HS 30 Days #30 tab.er.24h 05/06/19 Donepezil HCl [Aricept -] 10 mg PO DAILY 10/22/19 Levothyroxine [Synthroid -] 75 mcg PO DAILY #30 tablet 10/29/19 Levothyroxine [Synthroid -] 75 mcg PO DAILY@0700 tablet 10/29/19 Albuterol Sulfate Inhaler - [Ventolin HFA Inhaler -] 1 - 2 inh PO Q4H PRN #1 inhaler 05/22/20 predniSONE [Deltasone -] 40 mg PO DAILY #6 tablet 05/22/20 ATTENDING PHYSICIAN STATEMENT I saw and evaluated the patient. I reviewed the resident's note and discussed the case with the resident. I agree with the resident's findings and plan as documented. SUBJECTIVE: OBJECTIVE: ASSESSMENT AND PLAN:
--- NOTE | 2020-05-22 16:41 | PN ---
Physical Exam: SUBJECTIVE: Patient seen and examined at bedside. No acute events overnight. D/c was planned earlier however patient now endorsing shortness of breath. OBJECTIVE: Vital Signs Period Temp Pulse Resp BP Sys/Soler Pulse Ox Last 24 Hr 97.5 F-98.9 F 80-104 18-20 129-163/72-99 97-99 GENERAL: NAD HEAD: AT/NC EYES: EOMI Sclera Clear LUNGS: Expiratory wheezing/crackles at bases HEART: RRR S1S2 No MRG ABDOMEN: Soft, nontender, nondistended EXTREMITIES: 2+ pitting edema bilaterally NEUROLOGICAL: No focal neuro deficits appreciated Laboratory Results - last 24 hr 05/22/20 08:23 Sodium 141 Potassium 4.2 Chloride 110 H Carbon Dioxide 21 Anion Gap 11 BUN 25.4 H Creatinine 1.4 H Est GFR (CKD-EPI)AfAm 41.90 Est GFR (CKD-EPI)NonAf 36.15 Random Glucose 84 Calcium 8.6 Troponin I 0.03 TSH 1.73 Active Medications Generic Name Dose Route Start Last Admin Trade Name Freq PRN Reason Stop Dose Admin Acetaminophen 650 mg 05/20/20 22:47 05/21/20 22:48 Tylenol - PO 650 mg Q4H PRN Administration FEVER Albuterol/Ipratropium 1 amp 05/21/20 11:45 05/21/20 12:45 Duoneb - NEB 1 amp Q6H PRN Administration SHORTNESS OF BREATH Aspirin 81 mg 05/21/20 10:00 05/22/20 10:15 Ecotrin - PO 81 mg DAILY DOUGLAS Administration Atorvastatin Calcium 20 mg 05/21/20 22:00 05/21/20 21:51 Lipitor - PO 20 mg HS DOUGLAS Administration Donepezil HCl 10 mg 05/21/20 22:00 05/21/20 21:51 Aricept - PO 10 mg HS DOUGLAS Administration Heparin Sodium (Porcine) 5,000 unit 05/21/20 10:00 05/22/20 10:16 Heparin - SQ 5,000 unit BID DOUGLAS Administration Latanoprost 1 drop 05/21/20 22:00 05/21/20 22:49 Xalatan 0.005% Eye Drops - OU 1 drop HS DOUGLAS Administration Levothyroxine Sodium 75 mcg 05/21/20 07:00 05/22/20 07:02 Synthroid - PO 75 mcg DAILY@0700 DOUGLAS Administration Memantine 5 mg 05/21/20 10:00 05/22/20 10:15 Namenda - PO 5 mg BID DOUGLAS Administration Pantoprazole Sodium 40 mg 05/21/20 10:00 05/22/20 10:15 Protonix - PO 40 mg DAILY DOUGLAS Administration Prednisone 40 mg 05/21/20 10:00 05/22/20 10:15 Deltasone - PO 40 mg DAILY DOUGLAS Administration Tamoxifen Citrate 20 mg 05/21/20 10:00 05/22/20 10:15 Tamoxifen Citrate PO 20 mg DAILY DOUGLAS Administration ASSESSMENT/PLAN: 79-year-old female with a past medical history of CHF, HTN, HLD, iron deficiency anemia, left breast CA, hypothyroidism, RLS presented to the emergency department with dyspnea on exertion and wheezing x1 to 2 months. #Dyspnea/wheezing 2/2 Bronchitis/ possible CHF exacerbation -Currently saturating at 96% room air -In setting of lower extremity edema and crackles at bases, will consult cardiology and order echocardiogram C/w prednisone Duonebs -BNP 788. CXR on admission did not reveal any congestive changes. Will order repeat. #JUSTINE -Creatinine of 1.6, baseline between 0.9 and 1.2. Repeat 1.4. Continue to trend FENa 0.1%. Likely etiology is prerenal Hold Lasix, ARB, spironolactone in light of JUSTINE #Hypertension Hold ARB, spironolactone, Lasix -C/w Bystolic #Hypothyroidism Continue home levothyroxine #CAD Continue ASA/statin #History of breast cancer Continue tamoxifen #FEN -No Fluids -Monitor Electrolytes -Sodium Controlled Diet DVT ppx: -Hep SQTID #Dispo: -Med-Surg Visit type - Emergency Visit Emergency Visit: Yes ED Registration Date: 05/20/20 Care time: The patient presented to the Emergency Department on the above date and was hospitalized for further evaluation of their emergent condition. - New Patient This patient is new to me today: No - Critical Care Critical Care patient: No - Discharge Referral Referred to [facility] Med P.C.: No - Medication Review Med list reviewed for High Risk Meds patients 65 and older: Yes ATTENDING PHYSICIAN STATEMENT I saw and evaluated the patient. I reviewed the resident's note and discussed the case with the resident. I agree with the resident's findings and plan as documented. SUBJECTIVE: OBJECTIVE: ASSESSMENT AND PLAN:
[2020-05-22] MEDS: DONEPEZIL HCL 10 MG TABLET (FP) PO SCH (23:07)
[2020-05-22] MEDS: ATORVASTATIN CA 20 MG TABLET (FP) PO SCH (23:07)
[2020-05-22] MEDS: LATANOPROST 0.005% OPHTH SOLN 2.5ML BOTTLE OU SCH (23:07)
[2020-05-23] MEDS ORDERED: MAG HYDROX/AL HYDROX/SIMETH 30 ML UNIT-DOSE CUP PO ONE (04:10)
[2020-05-23] MEDS: LEVOTHYROXINE NA 75 MCG TABLET (FP) PO SCH (06:45)
[2020-05-23 07:49] LABS: HEMATOCRIT 33.2 % (32.4-45.2); HEMOGLOBIN 10.8 GM/dL (10.7-15.3); MCH 31.8 pg (25.7-33.7); MCHC 32.4 g/dl (32.0-36.0); MEAN PLT VOLUME 9.2 fl (7.5-11.1); PLATELET COUNT 242 K/MM3 (134-434); RBC 3.39 M/mm3 (3.60-5.2); RDW 12.9 % (11.6-15.6); WHITE BLOOD COUNT 8.8 K/mm3 (4.0-10.0)
[2020-05-23 08:05] LABS: ALBUMIN 3.3 g/dl (3.4-5.0); BILIRUBIN,TOTAL 0.6 mg/dL (0.2-1); BLOOD UREA NITROGEN 20.3 mg/dL (7-18); CREATININE 1.2 mg/dL (0.55-1.3); MAGNESIUM 2.2 mg/dL (1.8-2.4); PHOSPHOROUS 2.6 mg/dL (2.5-4.9); POTASSIUM 4.2 mmol/L (3.5-5.1); TOT PROT 7.3 g/dl (6.4-8.2)
[2020-05-23] MEDS ORDERED: PT OWN MED DRAWER 7, Y5N ONE (09:53)
[2020-05-23] MEDS: ASPIRIN COATED 81 MG TABLET.EC PO SCH (10:09)
[2020-05-23] MEDS: predniSONE 20 MG TABLET (UD) PO SCH (10:09)
[2020-05-23] MEDS: PANTOPRAZOLE 40 MG TABLET PO SCH (10:10)
[2020-05-23] MEDS: HEPARIN NA (PORCINE) 5,000 UNITS/ML 1ML VIAL SQ SCH (10:10)
[2020-05-23] MEDS: MEMANTINE HCL 5 MG TABLET (UD) PO SCH (10:10)
[2020-05-23] MEDS: TAMOXIFEN CITRATE 10 MG TABLET PO SCH (10:11)
--- NOTE | 2020-05-23 13:50 | CON.CARD ---
Consult Consult Specialty:: Cardiology Referred by:: Hospitalist Service Reason for Consultation:: Cardiac evaluation - History of Present Illness Chief Complaint: Shortness of breath History of Present Illness: Patient is a 79 year old female seen in the office by Dr. Kd Holden, with underlying history of systolic/diastolic LV dysfunction with class 1-2 NYHA classification heart failure (chronic), LVEF 45%, HTN, hypercholesterolemia, carotid stenosis, hypothyroidism and history of breast CA s/p lumpectomy followed by radiation therapy who presented with worsening orthopnea and dyspnea on exertion. She also complained of wheezing. Currently, she denies chest pain or palpitations. Breathing improved today. She denies fever or chills. She denies nausea, vomiting, diarrhea or abdominal pain. She denies headache or l ightheadedness. She is adament about going home. She has an appointment with Dr. Holden in the office tomorrow. She was given steroids and inhaler while in the hospital. - History Source History Provided By: Patient, Medical Record Limitations to Obtaining History: No Limitations - Past Medical History Cardio/Vascular: Yes: CAD, CHF, HTN, Hyperlipdemia Gastrointestinal: Yes: GERD Endocrine: Yes: Hypothyroidism - Past Surgical History Additional Surgical History: Lumpectomy. Inguinal hernia repair. Partial thyoidectomy - Alcohol/Substance Use Hx Alcohol Use: Yes (social) - Smoking History Smoking history: Former smoker Have you smoked in the past 12 months: No If you are a former smoker, when did you quit?: 1999 Home Medications - Allergies Allergies/Adverse Reactions: Allergies Allergy/AdvReac Type Severity Reaction Status Date / Time No Known Allergies Allergy Verified 05/20/20 19:15 - Home Medications Home Medications: Ambulatory Orders Atorvastatin Ca [Lipitor] 20 mg PO HS 01/03/14 Aspirin Coated [Ecotrin -] 81 mg PO DAILY #0 01/04/14 Pantoprazole Sodium 40 mg PO DAILY #90 tablet. 02/06/18 Tamoxifen Citrate 20 mg PO DAILY 02/06/18 Latanoprost 0.005% Eye Drops [Xalatan 0.005% Eye Drops -] 1 drop OU HS 05/03/19 Memantine HCl [Namenda -] 5 mg PO BID 05/03/19 Pramipexole Di-HCl [Pramipexole ER] 0.375 mg PO AM 30 Days #30 tab.er.24h 05/06/19 Pramipexole Di-HCl [Pramipexole ER] 0.75 mg PO HS 30 Days #30 tab.er.24h 05/06/19 Donepezil HCl [Aricept -] 10 mg PO DAILY 10/22/19 Levothyroxine [Synthroid -] 75 mcg PO DAILY #30 tablet 10/29/19 Levothyroxine [Synthroid -] 75 mcg PO DAILY@0700 tablet 10/29/19 Albuterol Sulfate Inhaler - [Ventolin HFA Inhaler -] 1 - 2 inh PO Q4H PRN #1 inhaler 05/22/20 predniSONE [Deltasone -] 40 mg PO DAILY #6 tablet 05/22/20 Family Medical History Family Hx Diabetes: Mother, Father Review of Systems - Review of Systems Constitutional: denies: Chills, Fever Cardiovascular: reports: Shortness of Breath. denies: Chest Pain, Palpitations Respiratory: reports: Cough, Orthopnea, SOB, SOB on Exertion, Wheezing. denies: Hemoptysis, PND Gastrointestinal: denies: Abdominal Pain, Constipation, Diarrhea, Melena, Nausea, Rectal Bleeding, Vomiting Musculoskeletal: denies: Back Pain, Joint Pain Neurological: denies: Dizziness, Headache, Seizure, Syncope Vital Signs: Vital Signs Temperature 98.5 F 05/23/20 08:24 Pulse Rate 90 05/23/20 08:24 Respiratory Rate 20 05/23/20 10:00 Blood Pressure 135/71 05/23/20 08:24 O2 Sat by Pulse Oximetry (%) 100 05/23/20 10:00 Eyes: Yes: PERRL HENT: Yes: Atraumatic Neck: Yes: Supple Respiratory: Yes: Diminished Gastrointestinal: Yes: Normal Bowel Sounds, Soft. No: Tenderness Cardiovascular: Yes: Regular Rate and Rhythm JVD: No PMI: Non-Displaced Heart Sounds: Yes: S1, S2 Murmur: Yes: Systolic Murmur, Grade 1 Edema: Yes - Other Data Labs, Other Data: CBC, BMP 05/23/20 06:30 05/23/20 06:30 Laboratory Results - last 24 hr 05/21/20 05/22/20 05/23/20 13:30 08:23 06:30 WBC 8.8 RBC 3.39 L Hgb 10.8 Hct 33.2 MCV 98.0 H MCH 31.8 MCHC 32.4 RDW 12.9 Plt Count 242 MPV 9.2 Sodium 141 Potassium 4.2 Chloride 110 H Carbon Dioxide 21 Anion Gap 11 BUN 25.4 H Creatinine 1.4 H Est GFR (CKD-EPI)AfAm 41.90 Est GFR (CKD-EPI)NonAf 36.15 Random Glucose 84 Calcium 8.6 Phosphorus Magnesium Total Bilirubin AST ALT Alkaline Phosphatase Total Protein Albumin COVID-19 (YONATAN) Not detected 05/23/20 06:30 WBC RBC Hgb Hct MCV MCH MCHC RDW Plt Count MPV Sodium 140 Potassium 4.2 Chloride 108 H Carbon Dioxide 28 Anion Gap 5 L BUN 20.3 H Creatinine 1.2 Est GFR (CKD-EPI)AfAm 50.48 Est GFR (CKD-EPI)NonAf 43.56 Random Glucose 75 Calcium 9.0 Phosphorus 2.6 Magnesium 2.2 Total Bilirubin 0.6 AST 30 ALT 34 Alkaline Phosphatase 68 Total Protein 7.3 Albumin 3.3 L COVID-19 (YONATAN) Sinus rhythm with LVH Imaging - Results Chest X-ray: Report Reviewed (Unremarkable) EKG: Report Reviewed Problem List - Problems (1) Bronchitis Code(s): J40 - BRONCHITIS, NOT SPECIFIED ACUTE OR CHRONIC (2) Acute kidney injury superimposed on CKD Code(s): N17.9 - ACUTE KIDNEY FAILURE, UNSPECIFIED; N18.9 - CHRONIC KIDNEY DISEASE, UNSPECIFIED (3) Acute on chronic diastolic heart failure Code(s): I50.33 - ACUTE ON CHRONIC DIASTOLIC (CONGESTIVE) HEART FAILURE (4) DIAZ (dyspnea on exertion) Code(s): R06.09 - OTHER FORMS OF DYSPNEA (5) SOB (shortness of breath) Code(s): R06.02 - SHORTNESS OF BREATH (6) HTN (hypertension) Code(s): I10 - ESSENTIAL (PRIMARY) HYPERTENSION Qualifiers: Hypertension type: essential hypertension Qualified Code(s): I10 - Essential (primary) hypertension (7) Heart failure, NYHA class 1 Code(s): I50.9 - HEART FAILURE, UNSPECIFIED (8) Hypercholesterolemia Code(s): E78.00 - PURE HYPERCHOLESTEROLEMIA, UNSPECIFIED (9) Hypothyroidism Code(s): E03.9 - HYPOTHYROIDISM, UNSPECIFIED (10) Mitral valve regurgitation Code(s): I34.0 - NONRHEUMATIC MITRAL (VALVE) INSUFFICIENCY Qualifiers: Cardiac valve disease etiology: nonrheumatic Qualified Code(s): I34.0 - Nonrheumatic mitral (valve) insufficiency (11) Restless leg syndrome Code(s): G25.81 - RESTLESS LEGS SYNDROME (12) Tricuspid valve regurgitation Code(s): I07.1 - RHEUMATIC TRICUSPID INSUFFICIENCY Qualifiers: Cardiac valve disease etiology: nonrheumatic Qualified Code(s): I36.1 - Nonrheumatic tricuspid (valve) insufficiency Assessment/Plan 1. ? Reactive airway disease with wheezing 2. Chronic systolic/diastolic dysfunction with class 1-2 NYHA classification heart failure 3. HTN 4. Hypercholesterolemia 5. MR and TR 6. Carotid stenosis 7. Hypothyroidism 8. History of breast CA PLAN: 1. Resume ARB (was on Olmesartan 40 mg QD) when renal function is stabilized 2. Eventually to resume Furosemide 20 mg QD and monitor renal function and electrolytes 3. Continue Bystolic 5 mg QD 4. Lipitor 10 mg QD 5. ASA 81 mg QD 6. Steroid taper and bronchodilators 7. Patient is to follow up with both [facility] (Dr. Christianson) and [facility] (Dr. Kd Holden) as scheduled already tomorrow. Further management is to follow as outpatient. May discharge home cardiac standpoint. Discussed with Dr. Garcia (Hospitalist Service) Lewis Downey MD
--- NOTE | 2020-05-23 14:42 | PN ---
Teaching Attending Note Name of Resident: Keyur Wiley ATTENDING PHYSICIAN STATEMENT I saw and evaluated the patient. I reviewed the resident's note and discussed the case with the resident. I agree with the resident's findings and plan as documented. SUBJECTIVE: Seen and examined at bedside. Wheezing resolved. Satting 99-100 on RA. Seen by cardiology. No need for inpt workup. 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 Restart olmisartan and discharge. Hold lasix for now to be restarted as outpt. Labs can be repeated and meds restarted as needed. Will DC on 3 days of prednisone for total of 5 days tx, prescribe albuterol inhaler. OBJECTIVE Last Vital Signs Temp Pulse Resp BP Pulse Ox 97.9 F 79 20 108/68 99 05/21/20 10:00 05/21/20 10:00 05/21/20 10:00 05/21/20 10:05/21/20 10:00 GEN: NAD HEENT: [place]/AT [facility] RESP: CTAB CARDS: RRR, -MRG ABD: soft, nt/nd +BS EXT: No swelling/Edema Neuro: Non-focal, A&OX3 Labs/Imaging: reviewed ASSESSMENT/PLAN 79-year-old female with a past medical history of CHF, HTN, HLD, iron deficiency anemia, left breast CA, hypothyroidism, RLS presented to the emergency department with dyspnea on exertion and wheezing x1 to 2 months. Found to have prerenal JUSTINE 2/2 overdiuresis and wheeze likely 2/2 bronchitis. 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 HD stable on RA. Pt is medically cleared for discharge. Will hold lasix, spironolactone, and restart olmesartan. Pt has appointment with PCP and cardiologiston friday. Labs can be repeated and meds restarted as needed. Will DC on 3 days of prednisone for total of 5 days tx, prescribe albuterol inhaler.
[2020-05-23 14:56] VITALS: BP 151/88; PULSE 91; TEMP 98.7
--- NOTE | 2020-05-23 15:21 | DS ---
Physical Exam: SUBJECTIVE: Patient seen and examined at bedside. Patient does not endorse acute complaints. OBJECTIVE: Vital Signs Period Temp Pulse Resp BP Sys/Soler Pulse Ox Last 24 Hr 97.3 F-98.7 F 88-97 20-20 135-159/71-88 93-100 PHYSICAL EXAM GENERAL: The patient is awake, alert, and fully oriented, in no acute distress. HEAD: Normal with no signs of trauma. EYES: PERRL, extraocular movements intact, sclera anicteric, conjunctiva clear. ENT: Ears normal, nares patent, oropharynx clear without exudates, moist mucous membranes. NECK: Trachea midline, full range of motion, supple. LUNGS: Breath sounds equal, clear to auscultation bilaterally, no wheezes, no crackles, no accessory muscle use. HEART: Regular rate and rhythm, S1, S2 without murmur, rub or gallop. ABDOMEN: Soft, nontender, nondistended, normoactive bowel sounds, no guarding, no rebound, no hepatosplenomegaly, no masses. EXTREMITIES: 2+ pulses, warm, well-perfused, no edema. NEUROLOGICAL: Cranial nerves II through XII grossly intact. Normal speech, gait not observed. PSYCH: Normal mood, normal affect. SKIN: Warm, dry, normal turgor, no rashes or lesions noted. LABS Laboratory Results - last 24 hr 05/21/20 05/23/20 05/23/20 13:30 06:30 06:30 WBC 8.8 RBC 3.39 L Hgb 10.8 Hct 33.2 MCV 98.0 H MCH 31.8 MCHC 32.4 RDW 12.9 Plt Count 242 MPV 9.2 Sodium 140 Potassium 4.2 Chloride 108 H Carbon Dioxide 28 Anion Gap 5 L BUN 20.3 H Creatinine 1.2 Est GFR (CKD-EPI)AfAm 50.48 Est GFR (CKD-EPI)NonAf 43.56 Random Glucose 75 Calcium 9.0 Phosphorus 2.6 Magnesium 2.2 Total Bilirubin 0.6 AST 30 ALT 34 Alkaline Phosphatase 68 Total Protein 7.3 Albumin 3.3 L COVID-19 (YONATAN) Not detected HOSPITAL COURSE: Date of Admission:05/20/20 Date of Discharge: 05/23/20 Patient is a 79 year old female with history of hypertension, hyperlipidemia, iron deficiency anemia, hypothyroidism, left breast cancer, HFrEF, presented with dyspnea and wheezing. She was initiated on Prednisone with improvement of her wheezing. Labs revealed JUSTINE, prerenal etiology which resolved with gentle IV fluid hydration. Her Lasix, Spironolactone were held. 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 Discharged home to complete three more days of prednisone and Albuterol inhaler. Minutes to complete discharge: 36 Discharge Summary Problems reviewed: Yes Reason For Visit: ACUTE ON CHRONIC CONGESTIVE HEART FAILURE Current Active Problems JUSTINE (acute kidney injury) (Acute) Bronchitis (Acute) Condition: Improved - Instructions Diet, Activity, Other Instructions: You presented to the hospital due to wheezing and shortness of breath. You were found to have an exacerbation of your heart failure. Your kidney function was also abnormal. Continue taking your Olmesartan as directed. Please stop taking your Lasix, and Spironolactone until you visit your primary care doctor this Friday. These medications may cause kidney injury. You should also have a BMP (blood test) performed this week to re-evaluate your kidney function. Please continue to take all of your other medications as previously prescribed. Please be sure to drink at least 1-2 glasses more than your usual fluid intake daily. Please also be sure to weight yourself daily to make sure you are not retaining to much fluid. You will be sent home on 3 more days of Prednisone 40 mg daily. You will also be sent home with an albuterol inhaler for symptomatic relief of your wheezing. Please return to the emergency department if you develop any worsening symptoms such as shortness of breath, chest pain, nausea/vomiting, or increasing lower extremity swelling. Referrals: Kd Holden MD [Staff Physician] - Douglas Christianson MD [Primary Care Provider] - Disposition: HOME - Home Medications Comprehensive Discharge Medication List: Ambulatory Orders Atorvastatin Ca [Lipitor] 20 mg PO HS 01/03/14 Aspirin Coated [Ecotrin -] 81 mg PO DAILY #0 01/04/14 Pantoprazole Sodium 40 mg PO DAILY #90 tablet. 02/06/18 Tamoxifen Citrate 20 mg PO DAILY 02/06/18 Latanoprost 0.005% Eye Drops [Xalatan 0.005% Eye Drops -] 1 drop OU HS 05/03/19 Memantine HCl [Namenda -] 5 mg PO BID 05/03/19 Pramipexole Di-HCl [Pramipexole ER] 0.375 mg PO AM 30 Days #30 tab.er.24h 05/06/19 Donepezil HCl [Aricept -] 10 mg PO DAILY 10/22/19 Levothyroxine [Synthroid -] 75 mcg PO DAILY@0700 tablet 10/29/19 Albuterol Sulfate Inhaler - [Ventolin HFA Inhaler -] 1 - 2 inh PO Q4H PRN #1 inhaler 05/22/20 predniSONE [Deltasone -] 40 mg PO DAILY #6 tablet 05/22/20 Olmesartan Medoxomil 40 mg PO DAILY 30 Days #30 tablet 05/23/20 This patient is new to me today: Yes Date on this admission: 05/23/20 Emergency Visit: No Critical Care patient: No - Discharge Referral Referred to [facility] Med P.C.: No ATTENDING PHYSICIAN STATEMENT I saw and evaluated the patient. I reviewed the resident's note and discussed the case with the resident. I agree with the resident's findings and plan as documented. SUBJECTIVE: OBJECTIVE: ASSESSMENT AND PLAN:
== END 2020-05-23 15:46 | disposition home or self-care (01) | DRG 202 ==
LOC: JER 18:59 → JERBED 22:20 → J8W 05-21 15:35
PROVIDERS: ADMIT Internal Medicine; ATTEND Internal Medicine
DX: J40 Bronchitis, not specified as acute or chronic (principal); N17.9 Acute kidney failure, unspecified; I50.42 Chronic combined systolic (congestive) and diastolic (congestive) heart failure; G25.81 Restless legs syndrome; I07.1 Rheumatic tricuspid insufficiency; I34.0 Nonrheumatic mitral (valve) insufficiency; I11.0 Hypertensive heart disease with heart failure; E78.5 Hyperlipidemia, unspecified; E03.9 Hypothyroidism, unspecified; K21.9 Gastro-esophageal reflux disease without esophagitis; I25.10 Atherosclerotic heart disease of native coronary artery without angina pectoris; D50.9 Iron deficiency anemia, unspecified; Z85.3 Personal history of malignant neoplasm of breast
CPT/HCPCS: 36415; 71045-TC-FY; 80048; 80053; 80061; 81003; 82550; 82553; 82565; 83721; 83735; 83880; 84100; 84300; 84443; 84484; 85025; 85027; 93005; 93010; 99285-25; J1644; U0003

== ENCOUNTER 2020-06-12 16:16 | Emergency (ER) | payer OTHER, MEDICARE ==
--- OUTSIDE RECORDS SUMMARY | 2020-06-12 16:27 | XMS ---
:1940 Author Organization [facility] Support Name Relationship Address Phone RE, RETIRED Unavailable Unavailable Unavailable RE Unavailable Unavailable Unavailable SANGEETA BELL SISTER [address] [place] [address] SANGEETA BELL Sister [address] [place] [address] Re-disclosure Warning The records that you are [...] is protected by Article 27-F of the [facility] Public Health law. If you continue you may haveaccess to information: Regarding HIV / AIDS; Provided by facilities licensed or operated by the [facility] Office of Mental Health; or Provided by the [facility] Office for People With Developmental Disabilities. If such information is present, then the following [facility] mandated warning applies: This information has been [...] law may result in a fine or detention sentence or both. A general authorization for the release of medical or other information is NOT sufficient authorization for further disclosure. Insurance Providers Payer name Policy type Policy ID Covered Covered democrat's Policy P scott / Coverage democrat ID relationship to Saenz Inf ormation type saenz MEDICARE [id number] SP [id number] Q[address] [facility] [id number] SP [id number] [employer] MEDICARE [id number] SP [id number] MEDICARE [id number] SP [id number] Q[address] [facility] [id number] SP [id number] [employer] MEDICARE [id number] SP [id number] A MEDICARE [id number] SP [id number] A Results ID Date Data Source [id number] 05/21/2020 01:30:00 PM EDT [facility] Name Value Range Interpretation Description Data Sup porting Code Source(s) Document(s ) SARS [facility] coronavirus 2 RNA This lab was ordered by [facility] and reported by [facility]. ID Date Data Source [id number] 05/05/2020 01:22:00 PM EDT [facility] Name Value Range Interpretation Description Data Sup porting Code Source(s) Document(s ) SARS [facility] coronavirus 2 RNA This lab was ordered by [facility] and reported by [facility]. ID Date Data Source [id number] 02/25/2020 12:30:00 PM EDT [facility] Name Value Range Interpretation Description Data Sup porting Code Source(s) Document(s ) SARS [facility] CORONAVIRUS 2 RNA This lab was ordered by [facility] and reported by [facility]. ID Date Data Source [id number] 01/05/2020 12:00:00 AM EDT [facility] Name Value Range Interpretation Code Description Data Jacquelyn rce(s) Supporting Document(s ) 2019-nCoV [facility] RNA XXX YONATAN+probe- Imp [facility] and reported by [facility] Procedure
[2020-06-12 16:40] VITALS: TEMP 99; BMI 31.3
[2020-06-12] MEDS ORDERED: predniSONE 20 MG TABLET (UD) PO ONE (16:59)
[2020-06-12] MEDS ORDERED: ALBUTEROL SO4 2.5/IPRATROPIUM 0.5 INH SOL 3 ML VIAL.NEB. NEB ONE (17:05)
[2020-06-12] MEDS ORDERED: predniSONE 20 MG TABLET (UD) ONE (17:05)
[2020-06-12] MEDS: ALBUTEROL SO4 2.5/IPRATROPIUM 0.5 INH SOL 3 ML VIAL.NEB. NEB SCH ×3 (17:10→18:20)
--- NOTE | 2020-06-12 17:12 | PDOC ---
History of Present Illness - General Chief Complaint: Respiratory Stated Complaint: CHRONIC RESPIRATORY CONGESTION WITH WHEEZE Time Seen by Provider: 06/12/20 16:33 History Source: Patient Exam Limitations: No Limitations - History of Present Illness Initial Comments: 06/12/20 17:07 79 yo F h/o CHF, HTN, HLD, iron deficiency anemia, L. breast CA s/p lumpectomy, hypothyroidism, restless leg syndrome, ?reactive airway disease, former smoker quit ~20 years ago p/w wheezing, SOB, and cough occasionally productive of clear sputum x1 month since her d/c from the hospital. States symptoms improved with steroid use but she finished them about 3 days post discharge and her symptoms returned. Denies any worsening LE edema. Denies fevers and sick contacts. Denies CP. Is not sure if this feels similar to previous CHF exacerbations. Denies abd pain, n/v. Has seen her PMD since d/c and was told everything seemed fine and as per patient she might need to see a slotter operator helper in the future and she should follwo up with her PMD in 2 months. Came in today because of the duration of symptoms but states has not really worsened over the course of the month. Past History - Medical History Allergies/Adverse Reactions: Allergies Allergy/AdvReac Type Severity Reaction Status Date / Time No Known Allergies Allergy Verified 06/12/20 16:19 Home Medications: Ambulatory Orders Atorvastatin Ca [Lipitor] 20 mg PO HS 01/03/14 Aspirin Coated [Ecotrin -] 81 mg PO DAILY #0 01/04/14 Pantoprazole Sodium 40 mg PO DAILY #90 tablet. 02/06/18 Tamoxifen Citrate 20 mg PO DAILY 02/06/18 Latanoprost 0.005% Eye Drops [Xalatan 0.005% Eye Drops -] 1 drop OU HS 05/03/19 Memantine HCl [Namenda -] 5 mg PO BID 05/03/19 Donepezil HCl [Aricept -] 10 mg PO DAILY 10/22/19 Levothyroxine [Synthroid -] 75 mcg PO DAILY@0700 tablet 10/29/19 Albuterol Sulfate Inhaler - [Ventolin HFA Inhaler -] 1 - 2 inh PO Q4H PRN #1 inhaler 05/22/20 Albuterol Sulfate 5 mg IH TID PRN #30 amp 06/12/20 Albuterol Sulfate Inhaler - [Ventolin HFA Inhaler -] 1 - 2 inh PO Q4H PRN #1 inhaler 06/12/20 Ascorbic Acid [Vitamin C -] 500 mg PO DAILY 06/12/20 Cholecalciferol (Vitamin D3) [Vitamin D3 -] 2,000 unit PO DAILY 06/12/20 Ferrous Sulfate [Feosol] 325 mg PO DAILY 06/12/20 Furosemide [Lasix] 40 mg PO DAILY 06/12/20 Magnesium Amino Acid Chelate [Magnesium] 100 mg PO BID 06/12/20 Multivitamin [Multiple Vitamins] 1 each PO DAILY 06/12/20 Nebivolol [Bystolic -] 5 mg PO DAILY 06/12/20 Olmesartan Medoxomil [Benicar] 40 mg PO DAILY 06/12/20 Latham-3/Dha/Epa/Fish Oil [Latham 3 500 Softgel] 1 each PO DAILY 06/12/20 Pramipexole Di-HCl [Pramipexole ER] 0.5 mg PO AM 06/12/20 Prednisone 30 mg PO BID #18 tablet 06/12/20 Pregabalin [Lyrica -] 25 mg PO BID 06/12/20 Anemia: Yes Asthma: Yes Cancer: Yes (LEFT BREAST CANCER s/p Lumpectomy) Cardiac Disorders: Yes (SOB) CVA: No COPD: No CHF: Yes Dementia: Yes Diabetes: No GI Disorders: Yes (GASTRITIS, COLON ADENOMAS) Disorders: No HTN: Yes Hypercholesterolemia: Yes Liver Disease: Yes (COLON ADENOMA) Seizures: No Thyroid Disease: Yes (HYPOTHYROIDISM) - Surgical History Abdominal Surgery: Yes (RIGHT INGUINAL HERNIA REPAIR) Appendectomy: Yes (EGD,COLONOSCOPY) Cardiac Surgery: No Cholecystectomy: No Lung Surgery: No Neurologic Surgery: No Orthopedic Surgery: No - Psycho-Social/Smoking History Smoking History: Former smoker Have you smoked in the past 12 months: No If you are a former smoker, when did you quit?: 20 YEARS Information on smoking cessation initiated: No - Substance Abuse Hx (Audit-C & DAST Scrn) How often the patient has a drink containing alcohol: Monthly or less Score: In Men: 4 or > Positive; In Women: 3 or > Positive: 1 Screen Result (Pos requires Nsg. Audit-10AR): Negative In the last yr the pt used illegal drug/Rx for NonMed reason: No Score: Yes response is considered Positive: 0 Screen Result (Positive result requires Nsg. DAST-10): Negative Review of Systems - Review of Systems Able to Perform ROS?: Yes Comments:: 06/12/20 17:11 GENERAL/CONSTITUTIONAL: No fever or chills. No weakness. HEAD, EYES, EARS, NOSE AND THROAT: No change in vision. No ear pain or discharge. No sore throat. CARDIOVASCULAR: No chest pain , + shortness of breath. RESPIRATORY: + cough, wheezinh GASTROINTESTINAL: No nausea, vomiting or constipation. GENITOURINARY: No dysuria, frequency, or change in urination. MUSCULOSKELETAL: No joint or muscle swelling or pain. No neck or back pain. SKIN: No rash. NEUROLOGIC: No headache, vertigo, loss of consciousness, or change in strength/sensation. ENDOCRINE: No increased thirst. No abnormal weight change. HEMATOLOGIC/LYMPHATIC: No anemia, easy bleeding, or history of blood clots. ALLERGIC/IMMUNOLOGIC: No hives or skin allergy. *Physical Exam - Vital Signs Last Vital Signs Temp Pulse Resp BP Pulse Ox 99 F 85 22 H 136/76 99 06/12/20 16:18 06/12/20 16:18 06/12/20 16:18 06/12/20 17:01 06/12/20 16:18 - Physical Exam 06/12/20 17:12 GENERAL: non-toxic appearing HEENT: NCAT, conjunctiva not injected, MMM, EOMI NECK: Normal ROM, supple LUNGS: diffuse expiratory wheezes, mild tachypnea, speaking in full sentences, no accessory muscle use, no crackles appreciated, no stridor HEART: RRR, + s1 s2 ABDOMEN: Soft, nontender, normoactive bowel sounds. No guarding, no rebound. No masses BACK: no midline or paraspinal tenderness. No CVA tenderness. EXTREMITIES: Warm and well perfused. 1+LE pitting edema. FROM. No clubbing or cyanosis. No cords, erythema, or tenderness NEUROLOGICAL: Aox3, Speech fluent, face symmetric, tongue/uvula midline. Sensation grossly intact to light touch. Ambulatory with steady gait. Strength intact. No focal deficits. SKIN: Warm, dry, normal turgor, no rashes or lesions noted. ED Treatment Course - LABORATORY CBC & Chemistry Diagram: 06/12/20 17:20 06/12/20 17:20 - RADIOLOGY Radiology Studies Ordered: Category Date Time Status CHEST PA & LAT [RAD] Stat Radiology 06/12/20 16:59 Ordered Medical Decision Making - Medical Decision Making 06/12/20 17:13 79 yo F with cough, wheezing and SOB, possible reactive airway/asthma/COPD (pt is a former smoker) possibly 2/2 tamoxifen use although these respiratory complaints are a very rare side effect vs. less likely CHF exacerbation as no crackles on exam and no worsening LE pitting edema and pt reports compliance with her meds and no change in urination. Plan: -labs -cxr -EKG -nebs -steroids -reassess This clinical encounter is taking place during a federal and state health care emergency attributable to the novel [place] Virus pandemic. The [place] of the Department of Health and Human Services has declared, pursuant to the Public Health Service Act 319F-3 (42 U.S.C. 247d-6d), that a covered persons activities related to medical countermeasures against COVID-19 will be immune from liability under Federal and State law. Pt. signed out to incoming night attending. Discharge - Discharge Information Problems reviewed: Yes Clinical Impression/Diagnosis: Bronchitis Condition: Stable Disposition: HOME - Additional Discharge Information Prescriptions: Albuterol Sulfate 5 mg IH TID PRN #30 amp PRN Reason: Wheezing Prednisone 30 mg PO BID #18 tablet Albuterol Sulfate Inhaler - [Ventolin HFA Inhaler -] 1 - 2 inh PO Q4H PRN #1 inhaler PRN Reason: Wheezing - Follow up/Referral Referrals: Mendel Drummond MD [Staff Physician] - Call tomorrow Douglas Christianson MD [Primary Care Provider] - - Patient Discharge Instructions Patient Printed Discharge Instructions: DI for Acute Bronchitis Additional Instructions: Prednisone 30 mg twice a day for 3 days Albuterol nebulizer treatment up to 3 times a day as needed Continue other medications as prescribed Call slotter operator helper (Dr. Drummond) office in a.m. and arrange for follow-up within the next 2 to 3 days Follow-up with Dr. Christianson within the next 5 days Return to ER immediately if you have shortness of breath, high fever, severe cough - Post Discharge Activity
[2020-06-12 17:33] LABS: HEMATOCRIT 29.2 % (32.4-45.2); HEMOGLOBIN 9.4 GM/dl (10.7-15.3); LYMPH % 21.3 % (8-40); MCH 32.3 pg (25.7-33.7); MCHC 32.3 g/dl (32.0-36.0); MEAN CELL VOLUME 99.9 fl (80-96); MEAN PLT VOLUME 8.5 fl (7.5-11.1); MONO % 9.3 % (3.8-10.2); NEUT % 59.4 % (42.8-82.8); PLATELET COUNT 235 K/MM3 (134-434); RBC 2.92 M/mm3 (3.60-5.2); RDW 12.6 % (11.6-15.6); WHITE BLOOD COUNT 6.6 K/mm3 (4.0-10.8)
[2020-06-12 17:52] LABS: ALBUMIN 3.4 g/dl (3.4-5.0); BILIRUBIN,TOTAL 0.6 mg/dl (0.2-1); CALCIUM 8.6 mg/dl (8.5-10); CREATININE 1.6 mg/dl (0.55-1.3); POTASSIUM 4.5 mmol/L (3.5-5.1); TOT PROT 6.5 g/dl (6.4-8.2)
--- NOTE | 2020-06-12 19:47 | PDOC ---
*Physical Exam - Vital Signs Last Vital Signs Temp Pulse Resp BP Pulse Ox 99 F 85 22 H 136/76 99 06/12/20 16:18 06/12/20 16:18 06/12/20 16:18 06/12/20 17:01 06/12/20 16:18 ED Treatment Course - LABORATORY CBC & Chemistry Diagram: 06/12/20 17:20 06/12/20 17:20 - ADDITIONAL ORDERS Additional order review: Laboratory Results 06/12/20 06/12/20 17:20 17:20 Sodium 139 Potassium 4.5 Chloride 105 Carbon Dioxide 26 Anion Gap 8 BUN 30.0 H Creatinine 1.6 H Est GFR (CKD-EPI)AfAm 35.65 Est GFR (CKD-EPI)NonAf 30.76 Random Glucose 101 Calcium 8.6 Total Bilirubin 0.6 AST 25 ALT 22 Alkaline Phosphatase 54 Troponin I 0.04 Total Protein 6.5 Albumin 3.4 06/12/20 17:20 RBC 2.92 L MCV 99.9 H MCHC 32.3 RDW 12.6 MPV 8.5 Neutrophils % 59.4 Lymphocytes % 21.3 Monocytes % 9.3 Eosinophils % 9.0 H Basophils % 1.0 - Medications Given in the ED: ED Medications Discontinued Medications Generic Name Dose Route Start Last Admin Trade Name Freq PRN Reason Stop Dose Admin Albuterol/Ipratropium 1 amp 06/12/20 17:00 06/12/20 18:20 Duoneb - NEB 06/12/20 17:31 1 amp Q15M DOGULAS Administration Prednisone 60 mg 06/12/20 16:59 06/12/20 17:10 Deltasone - PO 06/12/20 17:00 60 mg ONCE ONE Administration ED Progress Note - Progress Note Progress Note: Care of this patient received from Dr Dailey BNP within normal limits (407) Patient feeling markedly better after nebulizer treatment and Prednisone. She has been advised by her PMD(Meghan) to followup with opal miner, Dr Drummond. Referral information provided for her. prescriptions for Prednisone and for Albuterol inhaler sent to her pharmacy Discharge - Discharge Information Problems reviewed: Yes Clinical Impression/Diagnosis: Bronchitis Condition: Stable Disposition: HOME - Additional Discharge Information Prescriptions: Albuterol Sulfate 5 mg IH TID PRN #30 amp PRN Reason: Wheezing Prednisone 30 mg PO BID #18 tablet Albuterol Sulfate Inhaler - [Ventolin HFA Inhaler -] 1 - 2 inh PO Q4H PRN #1 inhaler PRN Reason: Wheezing - Follow up/Referral Referrals: Douglas Christianson MD [Primary Care Provider] - Mendel Drummond MD [Staff Physician] - Call tomorrow - Patient Discharge Instructions Patient Printed Discharge Instructions: DI for Acute Bronchitis Additional Instructions: Prednisone 30 mg twice a day for 3 days Albuterol nebulizer treatment up to 3 times a day as needed Continue other medications as prescribed Call opal miner (Dr. Drummond) office in a.m. and arrange for follow-up within the next 2 to 3 days Follow-up with Dr. Christianson within the next 5 days Return to ER immediately if you have shortness of breath, high fever, severe cough - Post Discharge Activity
[2020-06-12 19:57] LABS: N-TERMINAL BNP 407.7 pg/ml (5-450)
[2020-06-12 20:14] VITALS: BP 142/83; PULSE 90
--- NOTE | 2020-06-13 10:09 | EKG ---
Test Reason : Blood Pressure : / mmHG Vent. Rate : 077 BPM Atrial Rate : 077 BPM P-R Int : 186 ms QRS Dur : 102 ms QT Int : 404 ms P-R-T Axes : 117 -05 019 degrees QTc Int : 457 ms NORMAL SINUS RHYTHM VOLTAGE CRITERIA FOR LEFT VENTRICULAR HYPERTROPHY ABNORMAL ECG WHEN COMPARED WITH ECG OF 20-MAY-2020 20:31, T WAVE AMPLITUDE HAS INCREASED IN ANTERIOR LEADS Confirmed by MD Arnold, Richi ([id number]) on 06/13/2020 10:09:09 AM Referred By: Confirmed By:Richi Barrett MD
== END 2020-06-12 20:17 | disposition home or self-care (01) ==
LOC: FER 16:16
PROC: 3E0F7GC Introduction of Other Therapeutic Substance into Respiratory Tract, Via Natural or Artificial Opening (ICD-10-PCS; principal; 2020-06-12)
DX: J20.9 Acute bronchitis, unspecified (principal)
CPT/HCPCS: 36415; 71046-TC-FY; 80053; 83880; 84484; 85025; 93005; 99285-25

== ENCOUNTER 2021-07-27 12:12 | Inpatient (IN) | payer OTHER, MEDICARE ==
[2021-07-27 13:59] LABS: VENOUS BASE EXCESS -0.1 mmol/L (-2-2); VENOUS O2 SATURATION 87.8 % (70-80); VENOUS PH 7.383 (7.310-7.410)
[2021-07-27 14:02] LABS: EOS % 3.1 % (0-4.5); HEMATOCRIT 30.2 % (32.4-45.2); MCH 33.2 pg (25.7-33.7); MCHC 33.3 g/dl (32.0-36.0); MEAN CELL VOLUME 99.7 fl (80-96); MEAN PLT VOLUME 9.3 fl (7.5-11.1); MONO % 12.9 % (3.8-10.2); PLATELET COUNT 196 10^3/uL (134-434); RBC 3.03 M/mm3 (3.60-5.2); WHITE BLOOD COUNT 7.6 K/mm3 (4.0-10.0)
[2021-07-27] MEDS ORDERED: methylPREDNISolone NA SUCC 125 MG/2 ML VIAL IVPB ONE (15:11)
[2021-07-27 15:17] LABS: ALK PHOS 56 U/L (45-117); ANION GAP 3 MMOL/L (8-16); BILIRUBIN,TOTAL 0.3 mg/dL (0.2-1); BLOOD UREA NITROGEN 39.8 mg/dL (7-18); CALCIUM 8.6 mg/dL (8.5-10.1); CHLORIDE 112 mmol/L (98-107); CO2 29 mmol/L (21-32); CREATININE 1.8 mg/dL (0.55-1.3); GLUCOSE,RANDOM 80 mg/dL (74-106); N-TERMINAL BNP 464.6 pg/ml (5-450); SGOT/AST 56 U/L (15-37); SGPT/ALT 27 U/L (13-61); SODIUM 143 mmol/L (136-145); TOT PROT 6.8 g/dl (6.4-8.2)
[2021-07-27] MEDS ORDERED: INSULIN REGULAR HUMAN 100 UNITS/ML *VIAL IVPUSH ONE (15:22)
[2021-07-27] MEDS ORDERED: DEXTROSE 50%-WATER - 25 GM/50 ML VIAL IVPUSH ONE (15:22)
[2021-07-27] MEDS: ALBUTEROL SO4 2.5/IPRATROPIUM 0.5 INH SOL 3 ML VIAL.NEB. NEB SCH ×4 (16:00→16:43)
[2021-07-27] MEDS ORDERED: ALBUTEROL SO4 2.5/IPRATROPIUM 0.5 INH SOL 3 ML VIAL.NEB. NEB ONE (16:43)
[2021-07-27] MEDS ORDERED: ALBUTEROL SO4 HFA INHALER IH PRN (16:49)
[2021-07-27 17:14] LABS: URINE APPEARANCE CLEAR; URINE BILIRUBIN NEGATIVE (NEGATIVE); URINE COLOR DK YELLOW; URINE GLUCOSE (UA) NEGATIVE (NEGATIVE); URINE KETONE NEGATIVE (NEGATIVE); URINE LEUK ESTERASE NEGATIVE (NEGATIVE); URINE NITRITE NEGATIVE (NEGATIVE); URINE PROTEIN NEGATIVE (NEGATIVE); URINE UROBILINOGEN 0.2 mg/dL (0.2-1.0)
[2021-07-27] MEDS ORDERED: methylPREDNISolone NA SUCC 125 MG/2 ML VIAL ONE (17:20)
[2021-07-27] MEDS ORDERED: FUROSEMIDE 40 MG/4 ML INJECTABLE VIAL ONE (17:20)
[2021-07-27] MEDS: FUROSEMIDE 40 MG/4 ML INJECTABLE VIAL IVPUSH SCH (17:22)
[2021-07-27 17:41] LABS: BLOOD UREA NITROGEN 39.6 mg/dL (7-18); CALCIUM 8.9 mg/dL (8.5-10.1); CREATININE 1.8 mg/dL (0.55-1.3)
[2021-07-28] MEDS: MEMANTINE HCL 5 MG TABLET (UD) PO SCH ×3 (00:15→21:24)
[2021-07-28] MEDS: HEPARIN NA (PORCINE) 5,000 UNITS/ML 1ML VIAL SQ SCH ×4 (00:15→21:24)
[2021-07-28] MEDS: ATORVASTATIN CA 20 MG TABLET (FP) PO SCH ×2 (00:15→21:24)
[2021-07-28 00:53] VITALS: BMI 32.0
[2021-07-28] MEDS: LEVOTHYROXINE NA 75 MCG TABLET (FP) PO SCH (06:10)
[2021-07-28 07:30] LABS: BASO % 0.5 % (0-2.0); HEMATOCRIT 31.4 % (32.4-45.2); HEMOGLOBIN 10.4 GM/dL (10.7-15.3); LYMPH % 11.4 % (8-40); MCH 32.8 pg (25.7-33.7); MEAN CELL VOLUME 99.4 fl (80-96); MEAN PLT VOLUME 8.6 fl (7.5-11.1); NEUT % 86.1 % (42.8-82.8); PLATELET COUNT 261 10^3/uL (134-434); RBC 3.16 M/mm3 (3.60-5.2); RDW 13.1 % (11.6-15.6); WHITE BLOOD COUNT 7.4 K/mm3 (4.0-10.0)
[2021-07-28 07:41] LABS: CHLORIDE 108 mmol/L (98-107); SODIUM 145 mmol/L (136-145)
[2021-07-28 07:44] LABS: ALBUMIN 3.1 g/dl (3.4-5.0); ANION GAP 7 MMOL/L (8-16); CO2 29 mmol/L (21-32); GLUCOSE,RANDOM 133 mg/dL (74-106)
[2021-07-28 07:45] LABS: BLOOD UREA NITROGEN 38.8 mg/dL (7-18); MAGNESIUM 2.4 mg/dL (1.8-2.4)
[2021-07-28 07:47] LABS: CHOLESTEROL 183 mg/dL (50-200); CREATININE 1.9 mg/dL (0.55-1.3); PHOSPHOROUS 3.4 mg/dL (2.5-4.9); SGOT/AST 22 U/L (15-37); SGPT/ALT 26 U/L (13-61)
[2021-07-28 07:48] LABS: LDL CHOLESTEROL (ONLY SJRH) 83 mg/dL (5-100); TRIGLYCERIDES 73 mg/dL (0-150)
[2021-07-28 07:49] LABS: BILIRUBIN,TOTAL 0.3 mg/dL (0.2-1); TOT PROT 7.3 g/dl (6.4-8.2)
[2021-07-28 07:50] LABS: ALK PHOS 65 U/L (45-117); HDL CHOLESTEROL 79 mg/dL (40-60)
[2021-07-28] MEDS: FUROSEMIDE 40 MG/4 ML INJECTABLE VIAL IVPUSH SCH (10:06)
[2021-07-28] MEDS: ASPIRIN COATED 81 MG TABLET.EC PO SCH (10:07)
[2021-07-28] MEDS: NEBIVOLOL 5 MG TABLET (FP) PO SCH (10:07)
[2021-07-28] MEDS: MULTIVITAMINS (DAILY MVI) TABLET (FP) PO SCH (10:07)
[2021-07-28] MEDS: DONEPEZIL HCL 10 MG TABLET (FP) PO SCH (10:07)
[2021-07-28] MEDS: FLUTICASONE/UMECLIDIN/VILANTER(200-62.5-25 TRELEGY ELLIPTA) INAHLER IH SCH (10:09)
[2021-07-28] MEDS: TAMOXIFEN CITRATE 10 MG TABLET PO SCH (11:10)
[2021-07-28] MEDS: NICOTINE 7 MG/24 HOURS TOPICAL PATCH TD SCH ×2 (17:48→17:59)
[2021-07-29] MEDS: HEPARIN NA (PORCINE) 5,000 UNITS/ML 1ML VIAL SQ SCH ×3 (05:42→22:16)
[2021-07-29] MEDS: LEVOTHYROXINE NA 75 MCG TABLET (FP) PO SCH ×2 (05:43→06:10)
[2021-07-29 06:45] LABS: BASO % 0.7 % (0-2.0); EOS % 3.9 % (0-4.5); HEMATOCRIT 29.9 % (32.4-45.2); LYMPH % 27.2 % (8-40); MCH 32.9 pg (25.7-33.7); MCHC 33.3 g/dl (32.0-36.0); MEAN CELL VOLUME 98.6 fl (80-96); MEAN PLT VOLUME 8.2 fl (7.5-11.1); NEUT % 60.2 % (42.8-82.8); PLATELET COUNT 239 10^3/uL (134-434); RBC 3.03 M/mm3 (3.60-5.2); RDW 12.9 % (11.6-15.6); WHITE BLOOD COUNT 7.2 K/mm3 (4.0-10.0)
[2021-07-29 07:50] LABS: CALCIUM 8.8 mg/dL (8.5-10.1)
[2021-07-29 07:51] LABS: ALBUMIN 2.9 g/dl (3.4-5.0); BLOOD UREA NITROGEN 38.1 mg/dL (7-18); MAGNESIUM 2.4 mg/dL (1.8-2.4)
[2021-07-29 07:54] LABS: CREATININE 1.7 mg/dL (0.55-1.3)
[2021-07-29 07:55] LABS: BILIRUBIN,TOTAL 0.4 mg/dL (0.2-1); TOT PROT 6.8 g/dl (6.4-8.2)
[2021-07-29] MEDS ORDERED: PT OWN MED DRAWER 7, Y5N ONE (09:58)
[2021-07-29] MEDS: NEBIVOLOL 5 MG TABLET (FP) PO SCH (10:01)
[2021-07-29] MEDS: FUROSEMIDE 40 MG/4 ML INJECTABLE VIAL IVPUSH SCH (10:01)
[2021-07-29] MEDS: DONEPEZIL HCL 10 MG TABLET (FP) PO SCH (10:01)
[2021-07-29] MEDS: ASPIRIN COATED 81 MG TABLET.EC PO SCH (10:01)
[2021-07-29] MEDS: MULTIVITAMINS (DAILY MVI) TABLET (FP) PO SCH (10:01)
[2021-07-29] MEDS: MEMANTINE HCL 5 MG TABLET (UD) PO SCH ×2 (10:02→22:16)
[2021-07-29] MEDS: NICOTINE 7 MG/24 HOURS TOPICAL PATCH TD SCH (10:02)
[2021-07-29] MEDS: TAMOXIFEN CITRATE 10 MG TABLET PO SCH (10:02)
[2021-07-29] MEDS: FLUTICASONE/UMECLIDIN/VILANTER(200-62.5-25 TRELEGY ELLIPTA) INAHLER IH SCH (10:03)
[2021-07-29] MEDS: ATORVASTATIN CA 20 MG TABLET (FP) PO SCH (22:16)
[2021-07-30] MEDS: HEPARIN NA (PORCINE) 5,000 UNITS/ML 1ML VIAL SQ SCH ×3 (06:49→21:16)
[2021-07-30] MEDS: LEVOTHYROXINE NA 75 MCG TABLET (FP) PO SCH (06:49)
[2021-07-30 07:49] LABS: HEMOGLOBIN 10.8 GM/dL (10.7-15.3); MCH 33.2 pg (25.7-33.7); MCHC 33.9 g/dl (32.0-36.0); MEAN CELL VOLUME 97.8 fl (80-96); MEAN PLT VOLUME 8.9 fl (7.5-11.1); PLATELET COUNT 259 10^3/uL (134-434); RBC 3.27 M/mm3 (3.60-5.2); RDW 12.8 % (11.6-15.6); WHITE BLOOD COUNT 6.8 K/mm3 (4.0-10.0)
[2021-07-30 07:59] LABS: BLOOD UREA NITROGEN 34.4 mg/dL (7-18); MAGNESIUM 2.3 mg/dL (1.8-2.4)
[2021-07-30 08:02] LABS: CREATININE 1.6 mg/dL (0.55-1.3); PHOSPHOROUS 3.3 mg/dL (2.5-4.9)
[2021-07-30] MEDS: DONEPEZIL HCL 10 MG TABLET (FP) PO SCH (09:21)
[2021-07-30] MEDS: ASPIRIN COATED 81 MG TABLET.EC PO SCH (09:21)
[2021-07-30] MEDS: MULTIVITAMINS (DAILY MVI) TABLET (FP) PO SCH (09:21)
[2021-07-30] MEDS: NEBIVOLOL 5 MG TABLET (FP) PO SCH (09:21)
[2021-07-30] MEDS: TAMOXIFEN CITRATE 10 MG TABLET PO SCH (09:21)
[2021-07-30] MEDS: MEMANTINE HCL 5 MG TABLET (UD) PO SCH ×2 (09:21→21:16)
[2021-07-30] MEDS: NICOTINE 7 MG/24 HOURS TOPICAL PATCH TD SCH (09:22)
[2021-07-30] MEDS: FLUTICASONE/UMECLIDIN/VILANTER(200-62.5-25 TRELEGY ELLIPTA) INAHLER IH SCH (09:23)
[2021-07-30] MEDS: FUROSEMIDE 40 MG/4 ML INJECTABLE VIAL IVPUSH SCH (11:25)
[2021-07-30] MEDS ORDERED: PT OWN MED DRAWER 7, Y5N ONE (21:13)
[2021-07-30] MEDS: ATORVASTATIN CA 20 MG TABLET (FP) PO SCH (21:14)
[2021-07-30] MEDS: SACUBITRIL/VALSARTAN 24 MG-26 MG TABLET PO SCH (21:14)
[2021-07-30] MEDS ORDERED: PRAMIPEXOLE DIHYDROCHLORIDE 1 MG TABLET PO SCH (22:00)
[2021-07-31] MEDS: HEPARIN NA (PORCINE) 5,000 UNITS/ML 1ML VIAL SQ SCH ×2 (05:59→13:23)
[2021-07-31] MEDS: LEVOTHYROXINE NA 75 MCG TABLET (FP) PO SCH (05:59)
[2021-07-31 07:33] LABS: HEMATOCRIT 31.9 % (32.4-45.2); HEMOGLOBIN 10.7 GM/dL (10.7-15.3); MCH 33.1 pg (25.7-33.7); MCHC 33.6 g/dl (32.0-36.0); MEAN CELL VOLUME 98.3 fl (80-96); MEAN PLT VOLUME 8.9 fl (7.5-11.1); PLATELET COUNT 239 10^3/uL (134-434); RBC 3.24 M/mm3 (3.60-5.2); RDW 12.9 % (11.6-15.6); WHITE BLOOD COUNT 8.4 K/mm3 (4.0-10.0)
[2021-07-31 08:23] LABS: ALBUMIN 3.2 g/dl (3.4-5.0); CALCIUM 9.5 mg/dL (8.5-10.1)
[2021-07-31 08:24] LABS: BLOOD UREA NITROGEN 28.8 mg/dL (7-18); MAGNESIUM 2.3 mg/dL (1.8-2.4); PHOSPHOROUS 3.7 mg/dL (2.5-4.9)
[2021-07-31 08:25] LABS: CREATININE 1.4 mg/dL (0.55-1.3)
[2021-07-31 08:26] LABS: BILIRUBIN,TOTAL 0.4 mg/dL (0.2-1)
[2021-07-31] MEDS ORDERED: PT OWN MED DRAWER 7, Y5N ONE (08:38)
[2021-07-31] MEDS: TAMOXIFEN CITRATE 10 MG TABLET PO SCH (09:17)
[2021-07-31] MEDS: DONEPEZIL HCL 10 MG TABLET (FP) PO SCH (09:18)
[2021-07-31] MEDS: MEMANTINE HCL 5 MG TABLET (UD) PO SCH (09:18)
[2021-07-31] MEDS: MULTIVITAMINS (DAILY MVI) TABLET (FP) PO SCH (09:18)
[2021-07-31] MEDS: SACUBITRIL/VALSARTAN 24 MG-26 MG TABLET PO SCH (09:19)
[2021-07-31] MEDS: ASPIRIN COATED 81 MG TABLET.EC PO SCH (09:19)
[2021-07-31] MEDS: NEBIVOLOL 5 MG TABLET (FP) PO SCH (09:19)
[2021-07-31] MEDS: NICOTINE 7 MG/24 HOURS TOPICAL PATCH TD SCH (09:20)
[2021-07-31] MEDS: FLUTICASONE/UMECLIDIN/VILANTER(200-62.5-25 TRELEGY ELLIPTA) INAHLER IH SCH (09:21)
[2021-07-31] MEDS: FUROSEMIDE 40 MG/4 ML INJECTABLE VIAL IVPUSH SCH (09:51)
[2021-07-31 14:07] VITALS: BP 131/75; PULSE 74; TEMP 97.8
== END 2021-07-31 17:44 | disposition home or self-care (01) | DRG 291 ==
LOC: JER 12:12 → JERBED 15:21 → J4W 23:55
PROVIDERS: ADMIT Internal Medicine; ATTEND Internal Medicine
DX: I13.0 Hypertensive heart and chronic kidney disease with heart failure and stage 1 through stage 4 chronic kidney disease, or unspecified chronic kidney disease (principal); I50.43 Acute on chronic combined systolic (congestive) and diastolic (congestive) heart failure; N17.9 Acute kidney failure, unspecified; E87.0 Hyperosmolality and hypernatremia; F17.210 Nicotine dependence, cigarettes, uncomplicated; E78.5 Hyperlipidemia, unspecified; E87.5 Hyperkalemia; H40.9 Unspecified glaucoma; R53.83 Other fatigue; F03.90 Unspecified dementia, unspecified severity, without behavioral disturbance, psychotic disturbance, mood disturbance, and anxiety; E03.9 Hypothyroidism, unspecified; N18.9 Chronic kidney disease, unspecified; K21.9 Gastro-esophageal reflux disease without esophagitis; E78.00 Pure hypercholesterolemia, unspecified; I25.119 Atherosclerotic heart disease of native coronary artery with unspecified angina pectoris; G25.81 Restless legs syndrome; M48.061 Spinal stenosis, lumbar region without neurogenic claudication; J44.9 Chronic obstructive pulmonary disease, unspecified; N28.1 Cyst of kidney, acquired; I36.1 Nonrheumatic tricuspid (valve) insufficiency; I34.0 Nonrheumatic mitral (valve) insufficiency; E87.70 Fluid overload, unspecified
CPT/HCPCS: 36415; 71045-TC-FY; 76775-TC; 80048; 80053; 80061; 81003; 82436; 82550; 82553; 82570; 82607; 82746; 82803; 83036; 83735; 83880; 83935; 84100; 84133; 84156; 84300; 84443; 84484; 84540; 85025; 85027; 87086; 87804; 93005; 93010; 93306-TC; 97116-GP; 97161-GP; 99285-25; C9803; J1644; U0003; U0005

== ENCOUNTER 2021-08-23 15:52 | Inpatient (IN) | payer OTHER, MEDICARE ==
[2021-08-23 18:41] LABS: BASO % 0.8 % (0-2.0); EOS % 3.8 % (0-4.5); HEMATOCRIT 30.1 % (32.4-45.2); HEMOGLOBIN 9.8 GM/dL (10.7-15.3); LYMPH % 22.2 % (8-40); MCHC 32.6 g/dl (32.0-36.0); MEAN CELL VOLUME 98.1 fl (80-96); MEAN PLT VOLUME 8.5 fl (7.5-11.1); NEUT % 62.2 % (42.8-82.8); PLATELET COUNT 254 10^3/uL (134-434); RBC 3.07 M/mm3 (3.60-5.2); RDW 12.9 % (11.6-15.6); WHITE BLOOD COUNT 6.1 K/mm3 (4.0-10.0)
[2021-08-23 18:48] LABS: CHLORIDE 106 mmol/L (98-107); SODIUM 141 mmol/L (136-145)
[2021-08-23 18:50] LABS: CALCIUM 8.7 mg/dL (8.5-10.1)
[2021-08-23 18:51] LABS: ANION GAP 7 MMOL/L (8-16); BLOOD UREA NITROGEN 33.4 mg/dL (7-18); CO2 29 mmol/L (21-32); GLUCOSE,RANDOM 98 mg/dL (74-106)
[2021-08-23 18:54] LABS: CREATININE 1.7 mg/dL (0.55-1.3); SGOT/AST 25 U/L (15-37); SGPT/ALT 28 U/L (13-61)
[2021-08-23 18:55] LABS: TOT PROT 6.8 g/dl (6.4-8.2)
[2021-08-23 18:56] LABS: BILIRUBIN,TOTAL 0.2 mg/dL (0.2-1)
[2021-08-23 18:57] LABS: ALK PHOS 74 U/L (45-117)
[2021-08-23 21:06] LABS: EPI CELLS 21 /uL (0-25.1); HYALINE CASTS 1 /uL (0-3.1); PH,URINE 5.5 (5.0-8.0); URINE APPEARANCE CLEAR; URINE BACTERIA 475 /uL (0-1359); URINE BILIRUBIN NEGATIVE (NEGATIVE); URINE COLOR DK YELLOW; URINE GLUCOSE (UA) NEGATIVE (NEGATIVE); URINE KETONE NEGATIVE (NEGATIVE); URINE LEUK ESTERASE 2+ (NEGATIVE); URINE NITRITE NEGATIVE (NEGATIVE); URINE PROTEIN NEGATIVE (NEGATIVE); URINE RBC 5 /uL (0-23.9); URINE UROBILINOGEN 0.2 mg/dL (0.2-1.0); URINE WBC 65 /uL (0-25.8)
[2021-08-23] MEDS ORDERED: CEFTRIAXONE 1,000 MG in DEXTROSE 5%-WATER - 50 ML IVPB ONE (22:56)
[2021-08-23] MEDS ORDERED: CEFTRIAXONE 1 GM/50 ML BAG ONE (23:51)
[2021-08-24] MEDS ORDERED: ALBUTEROL SO4 HFA INHALER IH PRN (01:09)
[2021-08-24] MEDS ORDERED: SODIUM CHLORIDE 1,000 ML IV SCH ×2 (01:15→01:42)
[2021-08-24 04:31] VITALS: BMI 31.6
[2021-08-24] MEDS: LEVOTHYROXINE NA 75 MCG TABLET (FP) PO SCH (07:05)
[2021-08-24] MEDS: HEPARIN NA (PORCINE) 5,000 UNITS/ML 1ML VIAL SQ SCH ×3 (07:06→21:32)
[2021-08-24 08:30] LABS: EOS % 4.8 % (0-4.5); HEMATOCRIT 31.8 % (32.4-45.2); HEMOGLOBIN 10.3 GM/dL (10.7-15.3); LYMPH % 23.1 % (8-40); MCH 32.2 pg (25.7-33.7); MCHC 32.4 g/dl (32.0-36.0); MEAN CELL VOLUME 99.2 fl (80-96); MEAN PLT VOLUME 8.4 fl (7.5-11.1); MONO % 5.6 % (3.8-10.2); NEUT % 65.5 % (42.8-82.8); PLATELET COUNT 264 10^3/uL (134-434); RBC 3.21 M/mm3 (3.60-5.2); RDW 12.8 % (11.6-15.6); RETICULOCYTES 2.31 % (0.5-1.5); WHITE BLOOD COUNT 5.2 K/mm3 (4.0-10.0)
[2021-08-24 08:56] LABS: ALBUMIN 2.9 g/dl (3.4-5.0); BLOOD UREA NITROGEN 28.7 mg/dL (7-18); CALCIUM 8.7 mg/dL (8.5-10.1); MAGNESIUM 2.6 mg/dL (1.8-2.4)
[2021-08-24 08:57] LABS: PHOSPHOROUS 3.4 mg/dL (2.5-4.9)
[2021-08-24 08:59] LABS: BILIRUBIN,TOTAL 0.2 mg/dL (0.2-1); CREATININE 1.5 mg/dL (0.55-1.3); TOT PROT 6.6 g/dl (6.4-8.2)
[2021-08-24] MEDS: CEFTRIAXONE 1 GM in DEXTROSE 5%-WATER - 50 ML IVPB SCH (10:00)
[2021-08-24] MEDS ORDERED: PREGABALIN 25 MG CAPSULE PO SCH (10:00)
[2021-08-24] MEDS ORDERED: DEXTROSE 5%-WATER - 50 ML IVPB ONE (10:16)
[2021-08-24] MEDS ORDERED: cefTRIAXone SODIUM 1 GM VIAL ONE (10:16)
[2021-08-24] MEDS: MEMANTINE HCL 5 MG TABLET (UD) PO SCH ×2 (10:31→21:32)
[2021-08-24] MEDS: FUROSEMIDE 40 MG TABLET (FP) PO SCH (10:31)
[2021-08-24] MEDS: NEBIVOLOL 5 MG TABLET (FP) PO SCH (10:31)
[2021-08-24] MEDS: MULTIVITAMINS (DAILY MVI) TABLET (FP) PO SCH (10:31)
[2021-08-24] MEDS: FLUTICASONE/UMECLIDIN/VILANTER(200-62.5-25 TRELEGY ELLIPTA) INAHLER IH SCH (10:32)
[2021-08-24] MEDS: SACUBITRIL/VALSARTAN 24 MG-26 MG TABLET PO SCH ×2 (16:32→21:32)
[2021-08-24] MEDS ORDERED: PT OWN MED DRAWER 7, Y5N ONE ×2 (19:24→21:34)
[2021-08-24] MEDS: LATANOPROST 0.005% OPHTH SOLN 2.5ML BOTTLE OU SCH (21:35)
[2021-08-24] MEDS: DONEPEZIL HCL 10 MG TABLET (FP) PO SCH (21:35)
[2021-08-24] MEDS: PRAMIPEXOLE DIHYDROCHLORIDE 1 MG TABLET PO SCH (23:04)
[2021-08-25] MEDS: HEPARIN NA (PORCINE) 5,000 UNITS/ML 1ML VIAL SQ SCH ×3 (06:32→21:44)
[2021-08-25] MEDS: LEVOTHYROXINE NA 75 MCG TABLET (FP) PO SCH (06:32)
[2021-08-25 07:12] LABS: HEMATOCRIT 30.4 % (32.4-45.2); HEMOGLOBIN 10.2 GM/dL (10.7-15.3); MCH 32.6 pg (25.7-33.7); MCHC 33.5 g/dl (32.0-36.0); MEAN CELL VOLUME 97.5 fl (80-96); PLATELET COUNT 238 10^3/uL (134-434); RBC 3.12 M/mm3 (3.60-5.2); RDW 12.9 % (11.6-15.6); WHITE BLOOD COUNT 5.8 K/mm3 (4.0-10.0)
[2021-08-25 07:33] LABS: CALCIUM 8.8 mg/dL (8.5-10.1)
[2021-08-25 07:34] LABS: BLOOD UREA NITROGEN 29.4 mg/dL (7-18)
[2021-08-25 07:37] LABS: CREATININE 1.5 mg/dL (0.55-1.3)
[2021-08-25] MEDS ORDERED: DEXTROSE 5%-WATER - 50 ML IVPB ONE (09:06)
[2021-08-25] MEDS ORDERED: PT OWN MED DRAWER 7, Y5N ONE (09:06)
[2021-08-25] MEDS ORDERED: cefTRIAXone SODIUM 1 GM VIAL ONE (09:06)
[2021-08-25] MEDS: CEFTRIAXONE 1 GM in DEXTROSE 5%-WATER - 50 ML IVPB SCH (09:16)
[2021-08-25] MEDS: MULTIVITAMINS (DAILY MVI) TABLET (FP) PO SCH (09:17)
[2021-08-25] MEDS: NEBIVOLOL 5 MG TABLET (FP) PO SCH (09:17)
[2021-08-25] MEDS: SACUBITRIL/VALSARTAN 24 MG-26 MG TABLET PO SCH ×2 (09:17→21:43)
[2021-08-25] MEDS: FUROSEMIDE 40 MG TABLET (FP) PO SCH (09:17)
[2021-08-25] MEDS: MEMANTINE HCL 5 MG TABLET (UD) PO SCH ×2 (09:17→21:42)
[2021-08-25] MEDS: FLUTICASONE/UMECLIDIN/VILANTER(200-62.5-25 TRELEGY ELLIPTA) INAHLER IH SCH (15:28)
[2021-08-25] MEDS ORDERED: FUROSEMIDE 40 MG TABLET (FP) PO ONE (16:00)
[2021-08-25] MEDS: DONEPEZIL HCL 10 MG TABLET (FP) PO SCH (21:42)
[2021-08-25] MEDS: PRAMIPEXOLE DIHYDROCHLORIDE 1 MG TABLET PO SCH (21:44)
[2021-08-26] MEDS: LATANOPROST 0.005% OPHTH SOLN 2.5ML BOTTLE OU SCH ×2 (02:19→23:29)
[2021-08-26] MEDS: HEPARIN NA (PORCINE) 5,000 UNITS/ML 1ML VIAL SQ SCH ×3 (05:19→22:47)
[2021-08-26] MEDS: LEVOTHYROXINE NA 75 MCG TABLET (FP) PO SCH (06:31)
[2021-08-26] MEDS ORDERED: cefTRIAXone SODIUM 1 GM VIAL ONE (09:25)
[2021-08-26] MEDS ORDERED: PT OWN MED DRAWER 7, Y5N ONE ×2 (09:25→09:29)
[2021-08-26] MEDS ORDERED: DEXTROSE 5%-WATER - 50 ML IVPB ONE (09:26)
[2021-08-26] MEDS: MULTIVITAMINS (DAILY MVI) TABLET (FP) PO SCH (09:42)
[2021-08-26] MEDS: MEMANTINE HCL 5 MG TABLET (UD) PO SCH ×2 (09:42→22:48)
[2021-08-26] MEDS: NEBIVOLOL 5 MG TABLET (FP) PO SCH (09:43)
[2021-08-26] MEDS: FUROSEMIDE 40 MG TABLET (FP) PO SCH (09:43)
[2021-08-26] MEDS: CEFTRIAXONE 1 GM in DEXTROSE 5%-WATER - 50 ML IVPB SCH (09:44)
[2021-08-26] MEDS: SACUBITRIL/VALSARTAN 24 MG-26 MG TABLET PO SCH ×2 (09:44→23:34)
[2021-08-26] MEDS: FLUTICASONE/UMECLIDIN/VILANTER(200-62.5-25 TRELEGY ELLIPTA) INAHLER IH SCH (10:32)
[2021-08-26] MEDS: PRAMIPEXOLE DIHYDROCHLORIDE 1 MG TABLET PO SCH (22:46)
[2021-08-26] MEDS: DONEPEZIL HCL 10 MG TABLET (FP) PO SCH (22:48)
[2021-08-27] MEDS: LEVOTHYROXINE NA 75 MCG TABLET (FP) PO SCH (06:40)
[2021-08-27] MEDS: HEPARIN NA (PORCINE) 5,000 UNITS/ML 1ML VIAL SQ SCH ×3 (06:45→22:57)
[2021-08-27] MEDS: FUROSEMIDE 40 MG TABLET (FP) PO SCH (08:59)
[2021-08-27] MEDS: MEMANTINE HCL 5 MG TABLET (UD) PO SCH ×2 (08:59→22:55)
[2021-08-27] MEDS: MULTIVITAMINS (DAILY MVI) TABLET (FP) PO SCH (08:59)
[2021-08-27] MEDS: NEBIVOLOL 5 MG TABLET (FP) PO SCH (09:02)
[2021-08-27] MEDS: SACUBITRIL/VALSARTAN 24 MG-26 MG TABLET PO SCH ×2 (09:03→22:55)
[2021-08-27] MEDS: FLUTICASONE/UMECLIDIN/VILANTER(200-62.5-25 TRELEGY ELLIPTA) INAHLER IH SCH (09:04)
[2021-08-27 09:52] LABS: HEMATOCRIT 31.7 % (32.4-45.2); HEMOGLOBIN 10.5 GM/dL (10.7-15.3); MCH 32.4 pg (25.7-33.7); MEAN CELL VOLUME 98.3 fl (80-96); MEAN PLT VOLUME 8.5 fl (7.5-11.1); PLATELET COUNT 265 10^3/uL (134-434); RBC 3.23 M/mm3 (3.60-5.2); RDW 13.1 % (11.6-15.6); WHITE BLOOD COUNT 5.9 K/mm3 (4.0-10.0)
[2021-08-27 10:14] LABS: CALCIUM 8.8 mg/dL (8.5-10.1)
[2021-08-27 10:15] LABS: BLOOD UREA NITROGEN 22.8 mg/dL (7-18)
[2021-08-27 10:19] LABS: CREATININE 1.4 mg/dL (0.55-1.3)
[2021-08-27] MEDS ORDERED: PT OWN MED DRAWER 7, Y5N ONE (22:52)
[2021-08-27] MEDS: DONEPEZIL HCL 10 MG TABLET (FP) PO SCH (22:55)
[2021-08-27] MEDS: PRAMIPEXOLE DIHYDROCHLORIDE 1 MG TABLET PO SCH (22:55)
[2021-08-27] MEDS: LATANOPROST 0.005% OPHTH SOLN 2.5ML BOTTLE OU SCH (22:57)
[2021-08-28] MEDS: HEPARIN NA (PORCINE) 5,000 UNITS/ML 1ML VIAL SQ SCH ×2 (05:57→13:01)
[2021-08-28] MEDS: LEVOTHYROXINE NA 75 MCG TABLET (FP) PO SCH (06:00)
[2021-08-28 07:02] VITALS: BP 119/69; PULSE 89; TEMP 98.3
[2021-08-28] MEDS: FUROSEMIDE 40 MG TABLET (FP) PO SCH (09:45)
[2021-08-28] MEDS: MULTIVITAMINS (DAILY MVI) TABLET (FP) PO SCH (09:45)
[2021-08-28] MEDS: MEMANTINE HCL 5 MG TABLET (UD) PO SCH (09:45)
[2021-08-28] MEDS: NEBIVOLOL 5 MG TABLET (FP) PO SCH (09:45)
[2021-08-28] MEDS: SACUBITRIL/VALSARTAN 24 MG-26 MG TABLET PO SCH (09:47)
[2021-08-28] MEDS: FLUTICASONE/UMECLIDIN/VILANTER(200-62.5-25 TRELEGY ELLIPTA) INAHLER IH SCH (09:53)
== END 2021-08-28 13:43 | DRG 690 ==
LOC: JER 15:52 → JERBED 22:49 → J7W 08-24 04:05
PROVIDERS: ADMIT Hospitalist; ATTEND Internal Medicine
DX: N39.0 Urinary tract infection, site not specified (principal); N17.9 Acute kidney failure, unspecified; I50.32 Chronic diastolic (congestive) heart failure; I13.0 Hypertensive heart and chronic kidney disease with heart failure and stage 1 through stage 4 chronic kidney disease, or unspecified chronic kidney disease; J45.909 Unspecified asthma, uncomplicated; E03.9 Hypothyroidism, unspecified; D53.9 Nutritional anemia, unspecified; G25.81 Restless legs syndrome; Z85.3 Personal history of malignant neoplasm of breast; E78.5 Hyperlipidemia, unspecified; E86.0 Dehydration; H40.9 Unspecified glaucoma
CPT/HCPCS: 36415; 70450-TC; 71046-TC-FY; 72125-TC; 80048; 80053; 81003; 82272; 82550; 82570; 82607; 82728; 82962; 83540; 83550; 83735; 83880; 84100; 84300; 84443; 84484; 85025; 85027; 85045; 87086; 93005; 93010; 97116-GP; 97162-GP; 99285-25; C9803; J1644; U0003; U0005

== ENCOUNTER 2024-09-20 12:28 | Inpatient (IN) | payer OTHER, MEDICARE ==
[2024-09-20] MEDS ORDERED: methylPREDNISolone NA SUCC 125 MG/2 ML VIAL ONE (13:20)
[2024-09-20 13:25] VITALS: BMI 31.0
[2024-09-20] MEDS: methylPREDNISolone NA SUCC 125 MG/2 ML VIAL IVPUSH ONE (13:26)
[2024-09-20] MEDS: ALBUTEROL SO4 2.5/IPRATROPIUM 0.5 INH SOL 3 ML VIAL.NEB. NEB SCH ×2 (13:26→19:14)
[2024-09-20 13:28] LABS: BASO % 0.5 % (0-2.0); EOS % 0.3 % (0-4.5); HEMATOCRIT 31.6 % (32.4-45.2); HEMOGLOBIN 10.5 GM/dL (10.7-15.3); LYMPH % 18.2 % (8-40); MCH 32.7 pg (25.7-33.7); MCHC 33.1 g/dl (32.0-36.0); MEAN CELL VOLUME 98.9 fl (80-96); MEAN PLT VOLUME 7.9 fl (7.5-11.1); MONO % 7.7 % (3.8-10.2); NEUT % 73.3 % (42.8-82.8); PLATELET COUNT 232 10^3/uL (134-434); RDW 13.3 % (11.6-15.6); WHITE BLOOD COUNT 9.1 K/mm3 (4.0-10.0)
[2024-09-20] MEDS ORDERED: MAGNESIUM SULFATE IN WATER 2 GM/50 ML IVPB IVPB ONE (13:31)
[2024-09-20] MEDS ORDERED: FUROSEMIDE 40 MG/4 ML INJECTABLE VIAL ONE (13:31)
[2024-09-20 13:34] LABS: VENOUS BASE EXCESS 1.5 mmol/L (-2-2); VENOUS PCO2 51.7 mmHg (38-52); VENOUS PH 7.354 (7.310-7.410)
[2024-09-20 13:35] LABS: INR 1.03 (0.83-1.09); PROTHROMBIN TIME (PATIENT) 11.6 SEC (9.7-13.0)
[2024-09-20 13:37] LABS: ACTIVATED PTT 25.3 SECONDS (25.2-36.5)
[2024-09-20] MEDS: FUROSEMIDE 40 MG/4 ML INJECTABLE VIAL IVPUSH ONE (13:41)
[2024-09-20] MEDS: MAGNESIUM SULFATE IN WATER 2 GM/50 ML IVPB IVPB ONE (13:41)
[2024-09-20 13:52] LABS: POTASSIUM 3.7 mmol/L (3.5-5.1)
[2024-09-20 13:57] LABS: BLOOD UREA NITROGEN 22.4 mg/dL (7-18)
[2024-09-20 13:59] LABS: CREATININE 1.5 mg/dL (0.55-1.3)
[2024-09-20 14:01] LABS: BILIRUBIN,TOTAL 0.3 mg/dL (0.2-1); TOT PROT 6.5 g/dl (6.4-8.2)
[2024-09-20 14:04] LABS: N-TERMINAL BNP 733.2 pg/ml (5-450)
[2024-09-20] MEDS ORDERED: ATORVASTATIN CA 20 MG TABLET (FP) ONE (21:17)
[2024-09-20] MEDS ORDERED: HEPARIN NA (PORCINE) 5,000 UNITS/ML 1ML VIAL ONE (21:18)
[2024-09-20] MEDS ORDERED: GABAPENTIN 300 MG CAPSULE ONE (21:18)
[2024-09-20] MEDS ORDERED: OSELTAMIVIR PHOSPHATE 30 MG CAPSULE ONE (21:18)
[2024-09-20] MEDS ORDERED: SACUBITRIL/VALSARTAN 24 MG-26 MG TABLET ONE (21:18)
[2024-09-20] MEDS ORDERED: DONEPEZIL HCL 5 MG TABLET (FP) ONE (21:18)
[2024-09-20] MEDS: GABAPENTIN 300 MG CAPSULE PO SCH (21:26)
[2024-09-20] MEDS: HEPARIN NA (PORCINE) 5,000 UNITS/ML 1ML VIAL SQ SCH (21:26)
[2024-09-20] MEDS: SACUBITRIL/VALSARTAN 24 MG-26 MG TABLET PO SCH (21:26)
[2024-09-20] MEDS: ATORVASTATIN CA 20 MG TABLET (FP) PO SCH (21:26)
[2024-09-20] MEDS: OSELTAMIVIR PHOSPHATE 30 MG CAPSULE PO SCH (21:26)
[2024-09-20] MEDS: DONEPEZIL HCL 10 MG TABLET (FP) PO SCH (21:26)
[2024-09-20] MEDS: PRAMIPEXOLE DIHYDROCHLORIDE 0.25 MG TABLET PO SCH (23:26)
[2024-09-20] MEDS: ALLOPURINOL 100 MG TABLET (FP) PO SCH (23:26)
[2024-09-20] MEDS: MEMANTINE HCL 5 MG TABLET (UD) PO SCH (23:27)
[2024-09-20] MEDS: LATANOPROST 0.005% OPHTH SOLN 2.5ML BOTTLE OU SCH (23:27)
[2024-09-21] MEDS ORDERED: LEVOTHYROXINE NA 75 MCG TABLET (FP) ONE (06:27)
[2024-09-21] MEDS: LEVOTHYROXINE NA 75 MCG TABLET (FP) PO SCH (06:29)
[2024-09-21 07:56] LABS: BASO % 0.8 % (0-2.0); HEMATOCRIT 33.5 % (32.4-45.2); LYMPH % 13.7 % (8-40); MCH 32.4 pg (25.7-33.7); MCHC 32.7 g/dl (32.0-36.0); MEAN CELL VOLUME 99.1 fl (80-96); MEAN PLT VOLUME 8.4 fl (7.5-11.1); MONO % 6.8 % (3.8-10.2); NEUT % 78.7 % (42.8-82.8); PLATELET COUNT 257 10^3/uL (134-434); RBC 3.38 M/mm3 (3.60-5.2); RDW 13.5 % (11.6-15.6); WHITE BLOOD COUNT 12.9 K/mm3 (4.0-10.0)
[2024-09-21 08:13] LABS: POTASSIUM 4.2 mmol/L (3.5-5.1)
[2024-09-21 08:16] LABS: CALCIUM 9.5 mg/dL (8.5-10.1)
[2024-09-21 08:17] LABS: BLOOD UREA NITROGEN 24.6 mg/dL (7-18)
[2024-09-21 08:20] LABS: CREATININE 1.5 mg/dL (0.55-1.3)
[2024-09-21] MEDS ORDERED: predniSONE 20 MG TABLET (UD) PO SCH (10:00)
[2024-09-21 10:25] LABS: ANISOCYTOSIS 1+; MACROCYTOSIS 2+
[2024-09-21] MEDS ORDERED: ALBUTEROL SO4 2.5/IPRATROPIUM 0.5 INH SOL 3 ML VIAL.NEB. NEB ONE (10:54)
[2024-09-21] MEDS ORDERED: methylPREDNISolone NA SUCC 40 MG/1 ML VIAL ONE (10:54)
[2024-09-21] MEDS ORDERED: ASPIRIN COATED 81 MG TABLET.EC ONE (10:54)
[2024-09-21] MEDS ORDERED: SACUBITRIL/VALSARTAN 24 MG-26 MG TABLET ONE (11:06)
[2024-09-21] MEDS ORDERED: HEPARIN NA (PORCINE) 5,000 UNITS/ML 1ML VIAL ONE (11:06)
[2024-09-21] MEDS ORDERED: PANTOPRAZOLE 20 MG TABLET PO ONE (11:06)
[2024-09-21] MEDS ORDERED: OSELTAMIVIR PHOSPHATE 30 MG CAPSULE ONE (11:06)
[2024-09-21] MEDS ORDERED: FUROSEMIDE 40 MG/4 ML INJECTABLE VIAL ONE (11:32)
[2024-09-21] MEDS: NEBIVOLOL 5 MG TABLET (FP) PO SCH (11:32)
[2024-09-21] MEDS: PANTOPRAZOLE 20 MG TABLET PO SCH (11:49)
[2024-09-21] MEDS: methylPREDNISolone NA SUCC 40 MG/1 ML VIAL IVPUSH SCH ×2 (11:49→17:10)
[2024-09-21] MEDS: TAMOXIFEN CITRATE 10 MG TABLET PO SCH (11:49)
[2024-09-21] MEDS: FUROSEMIDE 40 MG/4 ML INJECTABLE VIAL IVPUSH SCH (11:49)
[2024-09-21] MEDS: ASPIRIN COATED 81 MG TABLET.EC PO SCH (11:49)
[2024-09-21 13:33] VITALS: RESP 18
[2024-09-21] MEDS: ALBUTEROL SO4 2.5/IPRATROPIUM 0.5 INH SOL 3 ML VIAL.NEB. NEB SCH (15:44)
[2024-09-21] MEDS: GABAPENTIN 300 MG CAPSULE PO SCH (21:40)
[2024-09-21] MEDS: MEMANTINE HCL 5 MG TABLET (UD) PO SCH (21:41)
[2024-09-21] MEDS: ATORVASTATIN CA 20 MG TABLET (FP) PO SCH (21:41)
[2024-09-21] MEDS: DONEPEZIL HCL 10 MG TABLET (FP) PO SCH (21:42)
[2024-09-21] MEDS: PRAMIPEXOLE DIHYDROCHLORIDE 0.25 MG TABLET PO SCH (21:42)
[2024-09-21] MEDS: ALLOPURINOL 100 MG TABLET (FP) PO SCH (21:43)
[2024-09-21] MEDS: HEPARIN NA (PORCINE) 5,000 UNITS/ML 1ML VIAL SQ SCH (21:44)
[2024-09-21] MEDS: SACUBITRIL/VALSARTAN 24 MG-26 MG TABLET PO SCH (21:44)
[2024-09-21] MEDS: OSELTAMIVIR PHOSPHATE 30 MG CAPSULE PO SCH (22:40)
[2024-09-21] MEDS: LATANOPROST 0.005% OPHTH SOLN 2.5ML BOTTLE OU SCH (22:40)
[2024-09-22] MEDS: LEVOTHYROXINE NA 75 MCG TABLET (FP) PO SCH (06:47)
[2024-09-22] MEDS: NEBIVOLOL 5 MG TABLET (FP) PO SCH (09:37)
[2024-09-22] MEDS: FUROSEMIDE 40 MG/4 ML INJECTABLE VIAL IVPUSH SCH (09:38)
[2024-09-22] MEDS: PANTOPRAZOLE 20 MG TABLET PO SCH (09:39)
[2024-09-22] MEDS: ASPIRIN COATED 81 MG TABLET.EC PO SCH (09:40)
[2024-09-22] MEDS: predniSONE 40 MG, predniSONE 10 MG PO SCH (09:40)
[2024-09-22 09:46] LABS: BASO % 0.5 % (0-2.0); HEMATOCRIT 31.7 % (32.4-45.2); HEMOGLOBIN 10.4 GM/dL (10.7-15.3); LYMPH % 8.8 % (8-40); MCH 32.6 pg (25.7-33.7); MCHC 32.7 g/dl (32.0-36.0); MEAN CELL VOLUME 99.7 fl (80-96); MEAN PLT VOLUME 8.3 fl (7.5-11.1); MONO % 2.5 % (3.8-10.2); NEUT % 88.2 % (42.8-82.8); PLATELET COUNT 243 10^3/uL (134-434); RBC 3.19 M/mm3 (3.60-5.2); RDW 13.4 % (11.6-15.6); WHITE BLOOD COUNT 11.5 K/mm3 (4.0-10.0)
[2024-09-22] MEDS: TAMOXIFEN CITRATE 10 MG TABLET PO SCH (09:48)
[2024-09-22] MEDS ORDERED: predniSONE 20 MG TABLET (UD) PO SCH (10:00)
[2024-09-22 10:11] LABS: POTASSIUM 4.3 mmol/L (3.5-5.1)
[2024-09-22 10:12] LABS: BLOOD UREA NITROGEN 27.4 mg/dL (7-18); MAGNESIUM 2.1 mg/dL (1.8-2.4)
[2024-09-22 10:15] LABS: CREATININE 1.5 mg/dL (0.55-1.3); PHOSPHOROUS 3.3 mg/dL (2.5-4.9)
[2024-09-23] MEDS: FUROSEMIDE 40 MG TABLET (FP) PO SCH (09:35)
[2024-09-23] MEDS ORDERED: guaiFENesin/CODEINE 5 ML UNIT-DOSE CUPS PO PRN (12:31)
[2024-09-23 16:04] VITALS: BP 107/63; PULSE 98; TEMP 97.4
== END 2024-09-23 18:02 | disposition home or self-care (01) | DRG 291 ==
LOC: JER 12:28 → JERBED 15:31 → J5S 09-21 13:19
PROVIDERS: ADMIT Internal Medicine; ATTEND Internal Medicine
DX: I13.0 Hypertensive heart and chronic kidney disease with heart failure and stage 1 through stage 4 chronic kidney disease, or unspecified chronic kidney disease (principal); I50.33 Acute on chronic diastolic (congestive) heart failure; J96.01 Acute respiratory failure with hypoxia; J44.1 Chronic obstructive pulmonary disease with (acute) exacerbation; N17.9 Acute kidney failure, unspecified; N18.9 Chronic kidney disease, unspecified; J45.909 Unspecified asthma, uncomplicated; E03.9 Hypothyroidism, unspecified; F03.90 Unspecified dementia, unspecified severity, without behavioral disturbance, psychotic disturbance, mood disturbance, and anxiety; G25.81 Restless legs syndrome; J10.1 Influenza due to other identified influenza virus with other respiratory manifestations; I34.0 Nonrheumatic mitral (valve) insufficiency; E78.00 Pure hypercholesterolemia, unspecified; K21.9 Gastro-esophageal reflux disease without esophagitis; H40.9 Unspecified glaucoma; Z85.3 Personal history of malignant neoplasm of breast
CPT/HCPCS: 0241U-QW; 36415; 71045-TC-FY; 80048; 80053; 82803; 83735; 83880; 84100; 84484; 85025; 85610; 85730; 86850; 86900; 86901; 93005; 93010; 93306-TC; 94640; 97116-GP; 97161-GP; 99285-25; J1644